=== PATIENT | female | born 1940 | race Caucasian/White ===

== ENCOUNTER 2020-02-14 09:58 | Inpatient (IN) | payer MEDICARE, MEDICAID, SELFPAY ==
[2020-02-14] VITALS (26 sets, daily range): BP systolic 86–147; BP diastolic 52–70; PULSE 62–101; RESP 12–22; TEMP 33.9–37.2; O2SAT 92–100; BMI 31.4
--- NOTE | ~2020-02-14 | XR_ITS ---
XR chest 1V portable DATE: 02/14/2020 13:55 INDICATION: Shortness of breath. Transient alteration of level of awareness TECHNIQUE: Portable AP chest on 02/14/2020 at 1352 hours COMPARISON: 01/24/2017 portable AP chest at 1530 hours FINDINGS: Heart size is borderline. There is mild atelectasis in the lower lung zones, primarily on t he right. No consolidation, pleural effusion, pulmonary vascular congestion or pneumothorax is eviden t. There is scoliosis and degenerative change of the thoracic spine. There is diffuse osteopenia. IMPRESSION: Mild atelectasis at the lung bases, right greater than left Reviewed, dictated and finalized at location B.
--- NOTE | ~2020-02-14 | US_ITS ---
EXAMINATION: US venous doppler [facility] DATE: 02/15/2020 10:36 INDICATION: Hypoxia. Elevated d-dimer. TECHNIQUE: Grayscale ultrasound images without and with compression and Doppler ultrasound images of the bilateral lower extremity veins were obtained. COMPARISON: None. FINDINGS: The visualized portions of right common femoral vein, profunda (deep) femoral vein, femoral vein, pop liteal vein, posterior tibial veins, peroneal veins, gastrocnemius vein and greater saphenous vein ou tflow are patent. The visualized portions of left common femoral vein, profunda femoral vein, femoral vein, popliteal v ein, posterior tibial veins, peroneal veins, gastrocnemius vein and greater saphenous vein outflow ar e patent. IMPRESSION: 1. No deep venous thrombosis in either lower limb. Reviewed, dictated and finalized at location A.
--- NOTE | ~2020-02-14 | MR_ITS ---
EXAMINATION: MR brain/brain stem wo con EXAM DATE: 02/15/2020 12:48 INDICATION: left-sided hemiparesis. Altered mental status. TECHNIQUE: Magnetic resonance imaging (MRI) of the brain/brain stem obtained without contrast. Sagitt al T1, axial diffusion, gradient echo (T2*), T1, T2, FLAIR sequences obtained. There is no prior st udy for comparison. FINDINGS: There are no areas of restricted diffusion to suggest acute infarction. There is no acute hemorrhage seen on the T2*, a hemosiderin sensitive sequence. 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 No intraparenchymal brain mass lesion. There are no extra-axial collections. Pop w voids are seen in the cerebral arteries on the T2-weighted sequences consistent with their expected patency. The orbits are unremarkable. Soft tissue is unremarkable. There is mild ethmoid mucoperi osteal thickening. IMPRESSION: 1. No acute intracranial findings. 2. 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 Reviewed, dictated and finalized at location A.
--- NOTE | ~2020-02-14 | CT_ITS ---
EXAMINATION: CTA chest PE protocol DATE: 02/15/2020 12:54 INDICATION: Hypoxia. Elevated d-dimer. TECHNIQUE: Computed tomography (CT) pulmonary angiogram of the chest was performed with 100 mL Omnipa que-350 intravenous contrast. Additional 3D reconstructions utilizing coronal maximum intensity proje ction (MIP) were performed. Automated exposure control and iterative reconstruction technique were em ployed. The dose-length product was 500.16 mGy-cm. COMPARISON: None FINDINGS: Good contrast opacification of the pulmonary arteries. There is moderate streak artifact from dense c ontrast in the superior vena cava and right atrium. There is scattered respiratory motion artifact, m ild in the mid lung zones, moderate at the upper lung zones and severe at the lung bases. This mildly decreases sensitivity in the smaller subsegmental pulmonary arteries in the upper lung zones and jesus alberto ders evaluation in the basilar segmental and subsegmental pulmonary arteries essentially nondiagnosti c. No definite pulmonary embolism identified. There is consolidation in the bilateral lower lobes with corresponding volume loss as evidenced by br onchovascular crowding which favors atelectasis over pneumonia. Additional discoid atelectasis at the lingula. Small left and trace right pleural effusions. No pulmonary edema or pneumothorax. Cardiomeg haven. No evident leftward bowing of the ventricular septum to suggest right heart strain. No pericardi al effusion. Enlargement of the central pulmonary arteries consistent with pulmonary arterial hyperte nsion. Thoracic aorta is normal in caliber with no dissection. No pathologically enlarged thoracic ly mphadenopathy. Multiple calcified gallstones within the visualized portion of the decompressed gallbl adder. Dextrocurvature likely at the cephalad aspect of a nonvisualized lumbar levoscoliosis. Moderat e spondylosis from the cervical through the upper lumbar spine. IMPRESSION: 1. No definite pulmonary embolism. Sensitivity decreased in the upper lung zones and essentially nond iagnostic in the basilar segmental and subsegmental pulmonary arteries due primarily to respiratory m otion. 2. Consolidation in the bilateral lower lobes with corresponding volume loss consistent with atelecta sis although difficult to exclude superimposed pneumonia. 3. Cardiomegaly. 4. Cholelithiasis. Reviewed, dictated and finalized at location A. IMPRESSION: 1. No definite pulmonary embolism. Sensitivity decreased in the upper lung zone s and essentially nondiagnostic in the basilar segmental and subsegmental pulmo nary arteries due primarily to respiratory motion. 2. Consolidation in the bilateral lower lobes with corresponding volume loss co nsistent with atelectasis although difficult to exclude superimposed pneumonia. 3. Cardiomegaly. 4. Cholelithiasis.
--- NOTE | ~2020-02-14 | CT_ITS ---
EXAMINATION: CTA BRAIN/CAROTID DATE: 02/14/2020 10:41 INDICATION: Altered mental status with increasing lethargy TECHNIQUE: Computed tomographic angiography (CTA) of the head and neck was performed with 100 mL Omni paque-350 intravenous contrast. Multiplanar reconstructions and maximum intensity projection 3D-recon structions of the carotid arteries and of the intracranial arteries were created by the technologist on a separate workstation. Precontrast CT of the head was also obtained. Automated exposure control and iterative reconstruction technique were employed.The dose-length product was 1385.70 mGy-cm. COMPARISON: None. FINDINGS: Carotid arteries: There is 0% stenosis of the right carotid bulb relative to normal distal artery lumen diameter (NASCE T criteria). There is 0% stenosis of the left carotid bulb relative to normal distal artery lumen syeda meter. Cervical soft tissues are unremarkable. Moderate cervical spondylosis. Respiratory motion with subsegmental atelectasis likely related to expiratory phase of imaging and the visualized upper lung s. Head CT: No acute intracranial hemorrhage, acute infarction or abnormal extra axial fluid collection. There is mild scattered white matter hypoattenuation consistent with chronic small vessel ischemic disease. S ymmetric prominence of the sulci consistent with mild age-appropriate diffuse cerebral volume loss. V entricles are normal and symmetric. No mass/mass effect. The orbits, paranasal sinuses and mastoid ai r cells are normal. Hyperostosis frontalis. Intracranial arteries There is no hemodynamically significant stenosis in the vertebral, basilar and internal carotid arter ies. Vertebral arteries are codominant. There are no aneurysms identified. The left A1 and right P1 s egments are patent. The right anterior cerebral artery is supplied by the left internal carotid arter y via a patent anterior communicating artery. The left posterior cerebral arteries is also supplied b y the left internal carotid artery via the left posterior communicating artery. Cerebral arterial arb orization appears symmetric. IMPRESSION: 1. No acute intracranial process. 2. Age-related changes including mild diffuse volume loss and mild scattered white matter hypoattenua tion consistent with chronic small vessel ischemic disease. 3. Normal variant anatomy of the [place] as detailed above. Otherwise normal cerebral angiog antelmo. 4. 0% stenosis of the right carotid bulbs relative to normal distal artery lumen diameter (NASCET cr iteria). Reviewed, dictated and finalized at location A. IMPRESSION: 1. No acute intracranial process. 2. Age-related changes including mild diffuse volume loss and mild scattered wh ite matter hypoattenuation consistent with chronic small vessel ischemic diseas e. 3. Normal variant anatomy of the [place] as detailed above. Otherwise normal cerebral angiogram. 4. 0% stenosis of the right carotid bulbs relative to normal distal artery lum en diameter (NASCET criteria).
--- NOTE | 2020-02-14 10:11 | ECG_ITS ---
Measurements Intervals [place] Rate: 67 P: 43 DE: 179 QRS: -7 QRSD: 113 T: 48 QT: 458 QTc: 485 Interpretive Statements SINUS RHYTHM LEFT VENTRICULAR HYPERTROPHY AND ST-T CHANGE MINIMAL Q WAVES- LATERAL LEADS BORDERLINE T WAVE ABNORMALITY- ANTERIOR LEADS BASELINE ARTIFACT- I, II, III, AVR, AVL BORDERLINE ECG Electronically Signed On 02-14-2020 10:21:14 CDT by Romario Shahid D.O.
--- NOTE | 2020-02-14 10:12 | ED.AMS ---
HPI - Altered Mental Status General Chief Complaint: Altered Mental Status Stated Complaint: LETHARGY Time Seen by Provider: 02/14/20 10:09 Source: other (Patient's family preservation caseworker) Mode of arrival: EMS Limitations: altered mental status History of Present Illness HPI narrative: A 79 y/o female presents to the ED, via EMS, with c/o AMS. Per patient's family preservation caseworker, the patient is not normally as lethargic and altered as she is today. She states that the patient appeared normal yesterday. At 0900 this morning the patient came out of the bathroom and stumbled. The family preservation caseworker adds that the patient did not fall, and sat in her chair after the stumble. The patient then quickly became more disoriented and stopped responding to staff questions. A complete HPI is limited due to the patient's AMS. MD complaint: altered mental status Onset (ago): hour(s) (1) Time: 09:00 Timing confirmed by: other (efficiency manager) Consistency of symptoms: unknown Associated symptoms: other (Lethargic) Related Data Home Medications Medication Instructions Recorded Confirmed Adult Low Dose Aspirin 81 mg PO DAILY 02/14/20 02/14/20 buspirone 10 mg PO BID 02/14/20 02/14/20 cetirizine 10 mg PO DAILY 02/14/20 02/14/20 divalproex 125 mg PO BID 02/14/20 02/14/20 duloxetine 60 mg PO DAILY 02/14/20 02/14/20 irbesartan 150 mg PO DAILY 02/14/20 02/14/20 levothyroxine 112 mcg PO DIRECTED 02/14/20 02/14/20 memantine 5 mg PO BID 02/14/20 02/14/20 potassium chloride 20 meq PO BID 02/14/20 02/14/20 rivastigmine [Exelon] 9.5 mg TRANSDERMAL DAILY 02/14/20 02/14/20 trazodone 100 mg PO HS 02/14/20 02/14/20 Allergies Allergy/AdvReac Type Severity Reaction Status Date / Time No Known Allergies Allergy Unverified 12/23/17 14:57 Review of Systems Review of Systems: Narrative: A complete ROS is limited due to the patient's AMS. All systems reviewed & are unremarkable except as noted in HPI and below Constitutional: Constitutional: Reports other (Lethargic) Neurologic: Reports other (AMS) [facility] Past Medical History Medical History (Updated 02/14/20 @ 19:08 by Michelle Hardwick MD) Breast cancer Dementia HTN (hypertension) Hypothyroid Post-menopausal Schizophrenia Seizure disorder Surgical History Surgical History History of mastectomy Right Social History Social History (Updated 02/14/20 @ 13:48 by Roshan Whitt MD) Social History: Resides in a shelter. [facility] a [facility] and full code status. Smoking status: Never smoker Alcohol intake: never Substance use: never Occupation/Education: retired Additional occupation/education comments: Disabled due to psychological condition Exam Const: General: no acute distress and well developed Orientation/consciousness: lethargic HENMT: Head: normocephalic Ears: external ears normal General nose exam: Normal external nose present Eyes: General: appearance normal, both eyes and all related structures Conjunctivae: conjunctivae normal Pupils: Other pupil findings (Constricted) Neck: Neck: normal visual inspection and full ROM Chest: Chest palpation & inspection: normal inspection of the chest and no tenderness Resp: Effort & Inspection: normal respiratory effort Auscultation: clear to auscultation bilaterally Cardio: Rate: regular rate Rhythm: regular rhythm GI: GI Palp: No abdominal tenderness and Yes Soft to palpation Skin: General skin exam: normal color and turgor normal Neuro: General: other (Lethargic, does not answer questions, does not follow commands) Other: lethargic, does not answer questions or follow commands, motor exam is limited to inability to follow commands Extrem: General: normal to inspection, full ROM and no pedal edema Psych: Appearance: grossly normal Mental Status: mental status grossly abnormal Affect: normal affect Course Consultations Consultation #1: Discussed case with hannah
[2020-02-14 11:01] LABS: Basophils Percent Auto 0.4 % (0.2-1.2); Eosinophils Absolute Auto 0.2 K/mm3 (0-0.3); Eosinophils Percent Auto 2.1 % (0-4.4); Hematocrit 30.8 % (37.0-47.0); Hemoglobin 9.8 g/dL (12.0-15.0); Immature Granulocyte Absolute 0.05 K/mm3 (0.00-0.031); Immature Granulocyte Percent A 0.6 % (0-0.5); Lymphocytes Absolute Auto 1.47 K/mm3 (0.9-3.2); Lymphocytes Percent Auto 18.9 % (18.3-44.2); Mean Corpuscular HGB Conc 31.8 g/dl (32-36); Mean Corpuscular Hemoglobin 31.3 pg (26-34); Mean Corpuscular Volume 98.4 fl (80-100); Mean Platelet Volume 10.1 fl (7.4-10.4); Monocytes Absolute Auto 1.1 K/mm3 (0.1-0.6); Monocytes Percent Auto 14.2 % (2.6-8.5); Neutrophils Percent Auto 63.8 % (45.5-73.1); Platelet Count Result 188 k/mm3 (150-375); Red Blood Count 3.13 M/mm3 (4.2-5.4); Red Cell Distribution Width 13.8 % (11.5-14.5); White Blood Count 7.8 K/mm3 (4.5-10.0)
[2020-02-14 11:14] LABS: Alanine Aminotransferase 9 U/L (4-35); Albumin Level 2.9 g/dL (3.5-5.1); Alkaline Phosphatase 65 U/L (38-126); Aspartate Amino Transferase 16 U/L (14-36); Bilirubin,Total 0.2 mg/dL (0.2-1.3); Blood Urea Nitrogen 19 mg/dL (7-17); Calcium 7.9 mg/dL (8.4-10.2); Carbon Dioxide 24 mmol/L (22-30); Chloride 108 mmol/L (98-107); Estimated Glomerular Filt Rate > 60; Glucose 105 mg/dL (65-105); Potassium 3.3 mmol/L (3.4-5.0); Sodium 136 mmol/L (137-145)
[2020-02-14 11:41] LABS: Valproic Acid 42.5 ug/mL (50-120)
[2020-02-14 12:19] LABS: Add Urine Microscopic? NO; Appearance Urine Clear (Clear); Bilirubin Urine Negative (Negative); Blood Urine Negative (Negative); Color Urine Yellow (Yellow); Glucose Urine UA Negative (Negative); Ketones Urine Negative (Negative); Leukocyte Esterase Ur Negative LEU/UL (Negative); Nitrate Urine Negative (Negative); Protein Urine Negative (Negative); Specific Grav Ur 1.026 (1.001-1.035); Urobilinogen Urine Negative mg/dL (<2.0)
[2020-02-14] MEDS: POTASSIUM CHLORIDE 20 MEQ TABLET PO (12:21)
[2020-02-14] MEDS: SODIUM CHLORIDE 0.9% IV 1,000 ML 999 ML IV CONT (12:27)
[2020-02-14 12:34] LABS: Amphetamine Screen Urine Negative (Negative); Barbiturate Screen Urine Negative (Negative); Benzodiazepines Screen Urine Negative (Negative); Cannabinoid Screen Urine Negative (Negative); Cocaine Screen Urine Negative (Negative); Methadone Screen Urine Negative (Negative); Opiate Screen Urine Negative (Negative); Phencyclidine Screen Urine Negative (Negative)
[2020-02-14] MEDS: LACTATED RINGERS 2,200 ML/1,000 ML BAG 999 ML IV CONT ×2 (13:00→14:28)
[2020-02-14 13:22] LABS: Alveolar/Arterial O2 Gradient 74.7 mmHg; Base Excess ABG -4.7 mEq/l (+/-2.0); Fractional Inspired Oxygen 28 %; HCO3 ABG 21.5 mEq/l (22.0-26.0); Oxygen Content ABG 14.4 %vol (16.0-22.0); Oxygen Saturation ABG 93.3 % (95.0-100.0); Oxyhemoglobin 91.8 % THb (90.0-100.0); PCO2 ABG 43.9 mmHg (35.0-45.0); PO2 ABG 73.1 mmHg (80.0-100.0); PO2 FiO2 Ratio Arterial Blood 2.61 %; Total Hemoglobin 11.1 g/dL (12.0-18.0); pH ABG 7.307 (7.350-7.450)
[2020-02-14 13:24] LABS: Device NASAL CANNULA; Modified Allen's Test Pass; Site Drawn LEFT RADIAL
--- NOTE | 2020-02-14 13:39 | PM.IMHP ---
H&P: HPI History of Present Illness Chief complaint: altered mental status Narrative: Gaviota Blount is a 79 year old right-handed female resident of a alf who was in her usual state of health until this morning at about 99 3:00 p.m.. 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 She was walking and talking her usual voice which is usually a bit slurred. She has a history of schizophrenia and intellectual disability. Staff the home noticed that she was nonambulatory and lethargic. They summoned 911 and she was brought to the emergency department. One staff member is present in the emergency department room with the patient. She states the patient usually has slurred speech. She does not complain about anything. She is ambulatory and pleasant. She eats well. Staff has not noted any difference in her ambulation appetite elimination or interaction with others until this morning. She has had no recent changes in medication. She does have a history of seizure disorder but no seizure activity was noted this morning. Review of Systems Review of Systems: ROS unobtainable: unobtainable due to mental status PMFSH Past Medical History Medical History (Updated 02/14/20 @ 17:41 by Roshan Whitt MD) Breast cancer Dementia HTN (hypertension) Hypothyroid Post-menopausal Schizophrenia Seizure disorder Surgical History Surgical History History of mastectomy Right Social History Social History (Updated 02/14/20 @ 13:48 by Roshan Whitt MD) Social History: Resides in a alf. She is a grey of the [facility], [facility] and full code status. Smoking status: Never smoker Alcohol intake: never Substance use: never Occupation/Education: retired Additional occupation/education comments: Disabled due to psychological condition Meds Home Medications and Allergies Home Medications Medication Instructions Recorded Confirmed Type Adult Low Dose Aspirin 02/14/20 History buspirone mg 02/14/20 History cetirizine 02/14/20 History divalproex PO 02/14/20 History irbesartan mg 02/14/20 History levothyroxine 02/14/20 History memantine mg 02/14/20 History potassium chloride meq PO 02/14/20 History rivastigmine [Exelon] 02/14/20 History trazodone 02/14/20 History Allergies Allergy/AdvReac Type Severity Reaction Status Date / Time No Known Allergies Allergy Unverified 12/23/17 14:57 Vital Signs Vital Signs - 24 hr 02/14/20 09:55 02/14/20 09:59 02/14/20 10:59 Temperature 93.1 F L Pulse Rate 73 Respiratory Rate 16 14 Blood Pressure 86/56 L Pulse Oximetry 99 92 02/14/20 11:00 02/14/20 13:07 Temperature 93.1 F L Pulse Rate 62 Respiratory Rate 12 Blood Pressure 86/60 L Pulse Oximetry 95 Exam Narrative: Exam Narrative: HEENT: EOMI, Pupils pinpoint and sluggishly reactive but symmetric, sclerae nonicteric, pharyngeal mucosa pink and intact NECK: No JVD, adenopathy, or thyromegaly CHEST: Coarse breath sounds bilaterally with normal effort HEART: NL S1/S2, regular, no murmur ABDOMEN: BS+, distended but soft, nontender, no mass, no bruits EXTREMITIES: No cyanosis, edema, or clubbing, with intact dorsalis pedis bilaterally NEUROLOGIC: CN intact and symmetric to inspection. Speech is somewhat raspy and slurred. Deep tender reflexes are hypoactive throughout absent at the ankles. Negative Babinski's. MUSCULOSKELETAL: Tone seem slightly diminished on the left lower extremity versus the right. Left waterproof bag sewer slightly decreased versus right. Although she is able to support her left leg against gravity she has virtually no reaction to Babinski on the left foot and brisk with withdrawal on the right foot. PSYCH: Patient is drowsy but arouses easily. She is oriented to person only and is able to say her 1st name. H&P: Results Labs Labs: Short CBC 02/14/20 Range/Units 10:54 W
[2020-02-14 14:03] LABS: INR 1.1
[2020-02-14 14:04] LABS: Partial Thromboplastin Time 38.4 SECONDS (22.3-36.8)
[2020-02-14 14:05] LABS: Lactic Acid Reflex 1.1 mmol/L (0.7-2.1)
--- NOTE | 2020-02-14 14:08 | PC.NURSE ---
1100 Rectal Temperature 93.1 F EDP notified. Denied temperature daniels. Verbal order readback start Pt. on kamilah hugger. 1200 Temperature remained 93.0 F EDP notified kamilah hugger continued 1300 Temperature remained 93.1 F EDP notified, ordered warm fluids and temperature daniels via verbal order readback. 1400 Core temperature increased to 94.0 F
--- NOTE | 2020-02-14 14:38 | PC.NURSE ---
EDP notified about blood pressure being low. EDP wants to wait for LR bolus to finish and reevaluate.
[2020-02-14 19:00] LABS: Immature Reticulocyte Fraction 11.3 % (3.0-15.9); Reticulocyte Hemoglobin Conten 35.1 pg (28.2-35.7); Reticulocyte Percent 1.84 % (0.7-4.3); Reticulocytes Absolute 0.07 B/L (32.2-175.7)
[2020-02-14 19:11] LABS: D Dimer 2.04 ug/mL (<0.48)
[2020-02-14 19:12] LABS: Creatine Kinase 39 U/L (30-135); Magnesium 1.8 mg/dL (1.6-2.3); Phosphorus 3.5 mg/dL (2.5-4.5)
[2020-02-14] MEDS: POTASSIUM CHLORIDE 20 MEQ TABLET 40 MEQ PO (19:25)
[2020-02-14 19:44] LABS: Iron 52 ug/dL (37-170)
[2020-02-14 19:54] LABS: Percent Iron Saturation 16 % (20-50)
--- NOTE | 2020-02-14 20:14 | PC.NURSE ---
This patient, Gaviota Blount, was admitted to IMU Room 205-02. Patient/family oriented to hospital policies and general routines including ID bracelet, bed and alarms, visiting hours, pain management, procedures, bathroom and other care routines, personal items, smoking policy, room service/diet, and visiting hours. Valuables list has been completed. Information on how to activate the Rapid Response Team has been discussed. Patient/Family are encouraged to report perceived risks to care and to ask questions if they do not understand what they are told or what they should do.
[2020-02-14 20:30] LABS: Folic Acid > 20.0 ng/mL (2.76->20)
[2020-02-14 20:42] LABS: Thyroid Stimulating Hormone Reflex 0.827 uIU/mL (0.465-4.68)
[2020-02-15] VITALS (13 sets, daily range): BP systolic 106–141; BP diastolic 49–80; PULSE 71–99; RESP 16–22; TEMP 36.3–37.3; O2SAT 93–100
[2020-02-15 04:51] LABS: Basophils Percent Auto 0.3 % (0.2-1.2); Eosinophils Absolute Auto 0.2 K/mm3 (0-0.3); Hematocrit 33.7 % (37.0-47.0); Hemoglobin 10.8 g/dL (12.0-15.0); Immature Granulocyte Absolute 0.06 K/mm3 (0.00-0.031); Immature Granulocyte Percent A 0.5 % (0-0.5); Lymphocytes Absolute Auto 1.68 K/mm3 (0.9-3.2); Mean Corpuscular Hemoglobin 30.9 pg (26-34); Mean Corpuscular Volume 96.6 fl (80-100); Mean Platelet Volume 10.7 fl (7.4-10.4); Monocytes Absolute Auto 1.3 K/mm3 (0.1-0.6); Monocytes Percent Auto 10.5 % (2.6-8.5); Neutrophils Absolute Auto 8.7 K/mm3 (1.3-6.7); Neutrophils Percent Auto 72.7 % (45.5-73.1); Platelet Count Result 219 k/mm3 (150-375); Red Blood Count 3.49 M/mm3 (4.2-5.4)
[2020-02-15 05:02] LABS: Blood Urea Nitrogen 14 mg/dL (7-17); Calcium 8.2 mg/dL (8.4-10.2); Carbon Dioxide 26 mmol/L (22-30); Chloride 112 mmol/L (98-107); Estimated CRCL calculation 68 ml/min; Estimated Glomerular Filt Rate > 60; Glucose 104 mg/dL (65-105); Sodium 140 mmol/L (137-145)
[2020-02-15] MEDS: LORATADINE 10 MG TABLET PO (09:14)
[2020-02-15] MEDS: CALCIUM CARBONATE (OSCAL) 500 MG TABLET PO (09:14)
[2020-02-15] MEDS: IRBESARTAN 150 MG TABLET PO (09:14)
[2020-02-15] MEDS: ASPIRIN 81 MG ENTERIC TABLET PO (09:14)
[2020-02-15] MEDS: busPIRone HCL 10 MG TABLET PO ×2 (09:14→20:58)
[2020-02-15] MEDS: DIVALPROEX SODIUM SPRINKLE 125 MG CAP.DR PO ×2 (09:14→18:54)
[2020-02-15] MEDS: MEMANTINE 5 MG TABLET PO ×2 (09:15→20:58)
[2020-02-15] MEDS: RIVASTIGMINE TARTRATE 9.5 MG PATCH 1 PATCH TRANSDERM (09:15)
[2020-02-15] MEDS: DULOXETINE 60 MG CAPSULE.DR PO (09:15)
[2020-02-15] MEDS: POTASSIUM CHLORIDE 20 MEQ TABLET.ER PO ×2 (09:15→16:59)
--- NOTE | 2020-02-15 09:21 | PCSTNOTE ---
Please refer to the Bedside Swallow Evaluation in the EMR.
--- NOTE | 2020-02-15 09:36 | P.PNIM_ITS ---
Progress Note: A&P Assessment and Plan (1) Acute respiratory failure with hypoxemia: Code(s): J96.01 - Acute respiratory failure with hypoxia Status: Acute Assessment and Plan: * No prior hx of pulmonary issues * Elevated D-dimer and sudden change in status are worrisome for PE * Venous doppler pending * CTA chest pending (2) Hypothermia: Qualifiers: Encounter type: initial encounter Qualified Code(s): T68.XXXA - Hypothermia, initial encounter Code(s): T68.XXXA - Hypothermia, initial encounter Status: Acute Assessment and Plan: * ddx stroke (thalamic), sepsis (but no obvious source, unless viral as she does have a monocytosis); sudden onset is against metabolic etiology (hypothyroid or adrenal insufficiency); hx is against exposure * MRI brain pending * TSHr, cortisol levels WNL * Blood C/s pending (cxr and urine negative; abdomen benign on exam) * Resolved with warming blanket * Monitor (3) Left-sided weakness: Code(s): R53.1 - Weakness Status: Acute Assessment and Plan: * ddx: stroke, post ictal (only low pH suggests seizure), metabolic encephalopathy (possibly due to hypothermia) (4) Hypotension: Qualifiers: Hypotension type: unspecified hypotension type Qualified Code(s): I95.9 - Hypotension, unspecified Code(s): I95.9 - Hypotension, unspecified Status: Acute Assessment and Plan: * Baseline BP is low 100's (per [facility] staff) * Initial BP may have been lower due to hypothermia * IVF (bolus 2 L in ED and bp to 130's systolic) * Monitor (5) Seizure disorder: Code(s): G40.909 - Epilepsy, unspecified, not intractable, without status epilepticus Status: Acute Assessment and Plan: * Continue home regimen (6) Schizophrenia: Qualifiers: Schizophrenia type: undifferentiated schizophrenia Qualified Code(s): F20.3 - Undifferentiated schizophrenia Code(s): F20.9 - Schizophrenia, unspecified Status: Acute Assessment and Plan: * Conitnue home regimen (7) Hypothyroid: Qualifiers: Hypothyroidism type: acquired Qualified Code(s): E03.9 - Hypothyroidism, unspecified Code(s): E03.9 - Hypothyroidism, unspecified Status: Acute Assessment and Plan: * Continue home regimen (8) Dementia: Qualifiers: Dementia type: unspecified type Dementia behavioral disturbance: without behavioral disturbance Qualified Code(s): F03.90 - Unspecified dementia without behavioral disturbance Code(s): F03.90 - Unspecified dementia without behavioral disturbance Status: Acute Assessment and Plan: * Continue home regimen (9) Anemia: Qualifiers: Anemia type: unspecified type Qualified Code(s): D64.9 - Anemia, unspecified Code(s): D64.9 - Anemia, unspecified Status: Acute Assessment and Plan: * Normocytic with unclear etiology * Lab evaluation and occult blood (10) Hypokalemia: Code(s): E87.6 - Hypokalemia Status: Acute Assessment and Plan: * Likely due to poor intake * Replenish with PO supplementation (11) Malnutrition: Qualifiers: Malnutrition type: protein-calorie malnutrition Protein-calorie malnutrition severity: mild Qualified Code(s): E44.1 - Mild protein-calorie malnutrition Code(s): E46 - Unspecified protein-calorie malnutrition Status: Acute Assessment and Plan: * Manifested
--- NOTE | 2020-02-15 09:36 | PM.IMPN ---
Progress Note: A&P Assessment and Plan (1) Acute respiratory failure with hypoxemia: Code(s): J96.01 - Acute respiratory failure with hypoxia Status: Acute Assessment and Plan: No prior hx of pulmonary issues Elevated D-dimer and sudden change in status are worrisome for PE Venous doppler pending CTA chest pending (2) Hypothermia: Qualifiers: Encounter type: initial encounter Qualified Code(s): T68.XXXA - Hypothermia, initial encounter Code(s): T68.XXXA - Hypothermia, initial encounter Status: Acute Assessment and Plan: ddx stroke (thalamic), sepsis (but no obvious source, unless viral as she does have a monocytosis); sudden onset is against metabolic etiology (hypothyroid or adrenal insufficiency); hx is against exposure MRI brain pending TSHr, cortisol levels WNL Blood C/s pending (cxr and urine negative; abdomen benign on exam) Resolved with warming blanket Monitor (3) Left-sided weakness: Code(s): R53.1 - Weakness Status: Acute Assessment and Plan: ddx: stroke, post ictal (only low pH suggests seizure), metabolic encephalopathy (possibly due to hypothermia) (4) Hypotension: Qualifiers: Hypotension type: unspecified hypotension type Qualified Code(s): I95.9 - Hypotension, unspecified Code(s): I95.9 - Hypotension, unspecified Status: Acute Assessment and Plan: Baseline BP is low 100's (per long-term staff) Initial BP may have been lower due to hypothermia IVF (bolus 2 L in ED and bp to 130's systolic) Monitor (5) Seizure disorder: Code(s): G40.909 - Epilepsy, unspecified, not intractable, without status epilepticus Status: Acute Assessment and Plan: Continue home regimen (6) Schizophrenia: Qualifiers: Schizophrenia type: undifferentiated schizophrenia Qualified Code(s): F20.3 - Undifferentiated schizophrenia Code(s): F20.9 - Schizophrenia, unspecified Status: Acute Assessment and Plan: Conitnue home regimen (7) Hypothyroid: Qualifiers: Hypothyroidism type: acquired Qualified Code(s): E03.9 - Hypothyroidism, unspecified Code(s): E03.9 - Hypothyroidism, unspecified Status: Acute Assessment and Plan: Continue home regimen (8) Dementia: Qualifiers: Dementia type: unspecified type Dementia behavioral disturbance: without behavioral disturbance Qualified Code(s): F03.90 - Unspecified dementia without behavioral disturbance Code(s): F03.90 - Unspecified dementia without behavioral disturbance Status: Acute Assessment and Plan: Continue home regimen (9) Anemia: Qualifiers: Anemia type: unspecified type Qualified Code(s): D64.9 - Anemia, unspecified Code(s): D64.9 - Anemia, unspecified Status: Acute Assessment and Plan: Normocytic with unclear etiology Lab evaluation and occult blood (10) Hypokalemia: Code(s): E87.6 - Hypokalemia Status: Acute Assessment and Plan: Likely due to poor intake Replenish with PO supplementation (11) Malnutrition: Qualifiers: Malnutrition type: protein-calorie malnutrition Protein-calorie malnutrition severity: mild Qualified Code(s): E44.1 - Mild protein-calorie malnutrition Code(s): E46 - Unspecified protein-calorie malnutrition Status: Acute Assessment and Plan: Manifested by albumin 2.9, total protein 6.0 Subjective Date/time seen: 02/15/20 09:36 Interval history: F/u hypothermia, AMS for which she was admitted 02/13. Feeling better today. Tolerating diet. Denied pain. Review of Systems Review of Systems: ROS unobtainable: unobtainable due to mental status Exam Narrative: Exam Narrative: HEENT: EOMI, Pupils ERRL, EOMI, sclerae nonicteric, pharyngeal mucosa pink and intact NECK: No JVD CHEST: CTA, NL effort HEART: NL S1/S
--- NOTE | 2020-02-15 18:49 | PC.NURSE ---
Rec'd from IMU per bed at 1845.
--- NOTE | 2020-02-15 18:51 | PC.NURSE ---
This patient, Gaviota Blount, was transferred to [ [id number]] on 02/15/20 at 1840. Personal belongings sent with patient. Belongings list checked and signed with receiving [ ]. Report given to [ Alicia ]. Appropriate documentation sent with patient.
[2020-02-15] MEDS: TRAZODONE HCL 50 MG TABLET 100 MG PO (20:58)
[2020-02-16] MEDS: LEVOTHYROXINE SODIUM 112 MCG TABLET PO (05:42)
[2020-02-16 06:00] VITALS: BP 125/52; PULSE 76; RESP 16; TEMP 37; O2SAT 94
[2020-02-16 06:39] LABS: Basophils Absolute Auto 0.1 K/mm3 (0.0-0.1); Basophils Percent Auto 0.5 % (0.2-1.2); Eosinophils Absolute Auto 0.5 K/mm3 (0-0.3); Eosinophils Percent Auto 4.9 % (0-4.4); Hematocrit 33.3 % (37.0-47.0); Hemoglobin 10.7 g/dL (12.0-15.0); Immature Granulocyte Absolute 0.06 K/mm3 (0.00-0.031); Immature Granulocyte Percent A 0.6 % (0-0.5); Lymphocytes Absolute Auto 2.63 K/mm3 (0.9-3.2); Lymphocytes Percent Auto 28.3 % (18.3-44.2); Mean Corpuscular HGB Conc 32.1 g/dl (32-36); Mean Corpuscular Volume 96.5 fl (80-100); Mean Platelet Volume 10.5 fl (7.4-10.4); Monocytes Absolute Auto 1.2 K/mm3 (0.1-0.6); Monocytes Percent Auto 12.5 % (2.6-8.5); Neutrophils Absolute Auto 4.9 K/mm3 (1.3-6.7); Neutrophils Percent Auto 53.2 % (45.5-73.1); Platelet Count Result 217 k/mm3 (150-375); Red Blood Count 3.45 M/mm3 (4.2-5.4); White Blood Count 9.3 K/mm3 (4.5-10.0)
[2020-02-16 07:05] LABS: Blood Urea Nitrogen 17 mg/dL (7-17); Calcium 8.4 mg/dL (8.4-10.2); Carbon Dioxide 29 mmol/L (22-30); Chloride 110 mmol/L (98-107); Estimated CRCL calculation 60 ml/min; Estimated Glomerular Filt Rate > 60; Glucose 95 mg/dL (65-105); Sodium 139 mmol/L (137-145)
[2020-02-16 07:34] LABS: Potassium 4.1 mmol/L (3.4-5.0)
[2020-02-16] MEDS: DULOXETINE 60 MG CAPSULE.DR PO (08:22)
[2020-02-16] MEDS: LORATADINE 10 MG TABLET PO (08:22)
[2020-02-16] MEDS: IRBESARTAN 150 MG TABLET PO (08:22)
[2020-02-16] MEDS: MEMANTINE 5 MG TABLET PO (08:22)
[2020-02-16] MEDS: ASPIRIN 81 MG ENTERIC TABLET PO (08:22)
[2020-02-16] MEDS: RIVASTIGMINE TARTRATE 9.5 MG PATCH 1 PATCH TRANSDERM (08:22)
[2020-02-16] MEDS: POTASSIUM CHLORIDE 20 MEQ TABLET.ER PO (08:22)
[2020-02-16] MEDS: DIVALPROEX SODIUM SPRINKLE 125 MG CAP.DR PO (08:22)
[2020-02-16] MEDS: CALCIUM CARBONATE (OSCAL) 500 MG TABLET PO (08:22)
[2020-02-16] MEDS: busPIRone HCL 10 MG TABLET PO (08:22)
--- NOTE | 2020-02-16 10:54 | P.DS_ITS ---
DS: Diagnosis Admitting Diagnosis Admitting Diagnosis: Hypothermia, initial encounter Discharge Diagnosis (1) Hypothermia: Qualifiers: Encounter type: initial encounter Qualified Code(s): T68.XXXA - Hypothermia, initial encounter Code(s): T68.XXXA - Hypothermia, initial encounter Status: Acute Assessment and Plan: * Initial ddx stroke (thalamic), sepsis (but no obvious source, unless viral as she does have a monocytosis); sudden onset is against metabolic etiology (hypothyroid or adrenal insufficiency); hx is against exposure * MRI brain negative for stroke, bleed, neoplasm * TSHr, cortisol levels WNL * Blood C/s negative (cxr and urine negative; abdomen benign on exam) * Resolved with warming blanket * At baseline * Return to senior care (2) Acute respiratory failure with hypoxemia: Code(s): J96.01 - Acute respiratory failure with hypoxia Status: Acute Assessment and Plan: * No prior hx of pulmonary issues * Elevated D-dimer and sudden change in status were worrisome for PE * Venous doppler negative * CTA chest negative (3) Left-sided weakness: Code(s): R53.1 - Weakness Status: Acute Assessment and Plan: * Initial ddx: stroke, post ictal (only low pH suggests seizure), metabolic encephalopathy (possibly due to hypothermia) * Likely metabolic vs TIA * [facility] Hypotension: Qualifiers: Hypotension type: unspecified hypotension type Qualified Code(s): I95.9 - Hypotension, unspecified Code(s): I95.9 - Hypotension, unspecified Status: Acute Assessment and Plan: * Baseline BP is low 100's (per senior care staff) * Initial BP may have been lower due to hypothermia * IVF (bolus 2 L in ED and bp to 130's systolic) * Back to baseline (5) Seizure disorder: Code(s): G40.909 - Epilepsy, unspecified, not intractable, without status epilepticus Status: Acute Assessment and Plan: * Continue home regimen (6) Schizophrenia: Qualifiers: Schizophrenia type: undifferentiated schizophrenia Qualified Code(s): F20.3 - Undifferentiated schizophrenia Code(s): F20.9 - Schizophrenia, unspecified Status: Acute Assessment and Plan: * Conitnue home regimen (7) Hypothyroid: Qualifiers: Hypothyroidism type: acquired Qualified Code(s): E03.9 - Hypothyroidism, unspecified Code(s): E03.9 - Hypothyroidism, unspecified Status: Acute Assessment and Plan: * Continue home regimen (8) Dementia: Qualifiers: Dementia behavioral disturbance: without behavioral disturbance Dementia type: unspecified type Qualified Code(s): F03.90 - Unspecified dementia without behavioral disturbance Code(s): F03.90 - Unspecified dementia without behavioral disturbance Status: Acute Assessment and Plan: * Continue home regimen (9) Anemia: Qualifiers: Anemia type: unspecified type Qualified Code(s): D64.9 - Anemia, unspecified Code(s): D64.9 - Anemia, unspecified Status: Acute Assessment and Plan: * Normocytic with unclear etiology * Lab evaluation negative for iron, b12, folate deficiencies, or hemolysis (10) Hypokalemia: Code(s): E87.6 - Hypokalemia Status: Acute Assessment and Plan: * Likely due to poor intake * Replenished with PO supplementation (11) Malnutrition: Qualifiers: Malnutrition type: protein-calorie malnu
--- NOTE | 2020-02-16 10:54 | PM.DS ---
DS: Diagnosis Admitting Diagnosis Admitting Diagnosis: Hypothermia, initial encounter Discharge Diagnosis (1) Hypothermia: Qualifiers: Encounter type: initial encounter Qualified Code(s): T68.XXXA - Hypothermia, initial encounter Code(s): T68.XXXA - Hypothermia, initial encounter Status: Acute Assessment and Plan: Initial ddx stroke (thalamic), sepsis (but no obvious source, unless viral as she does have a monocytosis); sudden onset is against metabolic etiology (hypothyroid or adrenal insufficiency); hx is against exposure MRI brain negative for stroke, bleed, neoplasm TSHr, cortisol levels WNL Blood C/s negative (cxr and urine negative; abdomen benign on exam) Resolved with warming blanket At baseline [facility] (2) Acute respiratory failure with hypoxemia: Code(s): J96.01 - Acute respiratory failure with hypoxia Status: Acute Assessment and Plan: No prior hx of pulmonary issues Elevated D-dimer and sudden change in status were worrisome for PE Venous doppler negative CTA chest negative (3) Left-sided weakness: Code(s): R53.1 - Weakness Status: Acute Assessment and Plan: Initial ddx: stroke, post ictal (only low pH suggests seizure), metabolic encephalopathy (possibly due to hypothermia) Likely metabolic vs TIA Back to [facility] (4) Hypotension: Qualifiers: Hypotension type: unspecified hypotension type Qualified Code(s): I95.9 - Hypotension, unspecified Code(s): I95.9 - Hypotension, unspecified Status: Acute Assessment and Plan: Baseline BP is low 100's (per [facility] staff) Initial BP may have been lower due to hypothermia IVF (bolus 2 L in ED and bp to 130's systolic) Back to baseline (5) Seizure disorder: Code(s): G40.909 - Epilepsy, unspecified, not intractable, without status epilepticus Status: Acute Assessment and Plan: Continue home regimen (6) Schizophrenia: Qualifiers: Schizophrenia type: undifferentiated schizophrenia Qualified Code(s): F20.3 - Undifferentiated schizophrenia Code(s): F20.9 - Schizophrenia, unspecified Status: Acute Assessment and Plan: Conitnue home regimen (7) Hypothyroid: Qualifiers: Hypothyroidism type: acquired Qualified Code(s): E03.9 - Hypothyroidism, unspecified Code(s): E03.9 - Hypothyroidism, unspecified Status: Acute Assessment and Plan: Continue home regimen (8) Dementia: Qualifiers: Dementia behavioral disturbance: without behavioral disturbance Dementia type: unspecified type Qualified Code(s): F03.90 - Unspecified dementia without behavioral disturbance Code(s): F03.90 - Unspecified dementia without behavioral disturbance Status: Acute Assessment and Plan: Continue home regimen (9) Anemia: Qualifiers: Anemia type: unspecified type Qualified Code(s): D64.9 - Anemia, unspecified Code(s): D64.9 - Anemia, unspecified Status: Acute Assessment and Plan: Normocytic with unclear etiology Lab evaluation negative for iron, b12, folate deficiencies, or hemolysis (10) Hypokalemia: Code(s): E87.6 - Hypokalemia Status: Acute Assessment and Plan: Likely due to poor intake Replenished with PO supplementation (11) Malnutrition: Qualifiers: Malnutrition type: protein-calorie malnutrition Protein-calorie malnutrition severity: mild Qualified Code(s): E44.1 - Mild protein-calorie malnutrition Code(s): E46 - Unspecified protein-calorie malnutrition Status: Acute Assessment and Plan: Manifested by albumin 2.9, total protein 6.0 DS: Summary Hospital Course Reason for hospitalization: confusion Hospital Course: Admitted with altered mental status, inability to ambulate. Temp 93.1 upon arrival in ED with BP 80s systolic. Mild le
== END 2020-02-16 13:00 | disposition home or self-care (01) | DRG 922 ==
LOC: ANHED 12:25 → ANH2MED 13:00 → ANHIMU 16:25 → ANH3MEDSUR 02-15 18:52
PROVIDERS: Admitting Provider Internal Medicine; Emergency Provider Emergency Medicine; PCP Family Medicine; Visit Provider Internal Medicine
DX: T68.XXXA Hypothermia, initial encounter (principal); J96.01 Acute respiratory failure with hypoxia; E46 Unspecified protein-calorie malnutrition; R41.82 Altered mental status, unspecified; I95.9 Hypotension, unspecified; F03.90 Unspecified dementia, unspecified severity, without behavioral disturbance, psychotic disturbance, mood disturbance, and anxiety; E03.9 Hypothyroidism, unspecified; G40.909 Epilepsy, unspecified, not intractable, without status epilepticus; F20.9 Schizophrenia, unspecified; F79 Unspecified intellectual disabilities; D64.9 Anemia, unspecified; E87.6 Hypokalemia; R53.1 Weakness; Z85.3 Personal history of malignant neoplasm of breast
CPT/HCPCS: 36415; 36600; 51701; 70496; 70498; 70551; 71045; 71275; 80048; 80053; 80164; 80307; 81003; 82533; 82550; 82607; 82746; 82805; 83540; 83550; 83605; 83735; 84100; 84443; 85025; 85046; 85380; 85610; 85730; 87040; 87081; 92610; 93005; 93970; 96360; 96361; 97110; 97116; 97161; 97165; 99285; A9270; J7030; J7120; Q9967

== ENCOUNTER 2020-06-24 16:13 | Outpatient (CLI) | payer MEDICARE, MEDICAID, SELFPAY ==
--- NOTE | ~2020-06-24 | MM_ITS ---
EXAMINATION: MM screening mammo unilat LT HISTORY: Screening mammogram TECHNIQUE: Craniocaudal and mediolateral oblique and rotated lateral craniocaudal views.... CAD amber sis was submitted and interpreted. COMPARISON: No prior mammogram is available for comparison at this institution. BREAST PARENCHYMAL COMPOSITION: There are scattered areas of fibroglandular density. FINDINGS: Possible small approximately 3.4 mm mass in anterior upper outer left breast. Diagnostic le ft mammogram is recommended, with ultrasound if required. IMPRESSION: 1. Possible small mass in anterior upper outer quadrant of left breast 2. Recommend diagnostic left mammogram with ultrasound if required BI-RADS Category 0: Incomplete: Needs additional imaging evaluation. Reviewed, dictated and finalized at location A.
== END 2020-06-24 16:14 | disposition home or self-care (01) ==
LOC: ANHIMG 16:21
PROVIDERS: PCP Family Medicine; Visit Provider Nurse Practitioner Family
DX: Z12.31 Encounter for screening mammogram for malignant neoplasm of breast (principal); R92.8 Other abnormal and inconclusive findings on diagnostic imaging of breast
CPT/HCPCS: 77067

== ENCOUNTER 2020-08-22 11:14 | Outpatient (CLI) | payer MEDICARE, MEDICAID, SELFPAY ==
--- NOTE | ~2020-08-22 | MM_ITS ---
EXAMINATION: MM diagnostic mammo unilat LT HISTORY: Possible small mass suggested anterior upper outer quadrant left breast on 06/24/2020 bilater al digital screening mammogram examination TECHNIQUE: Additional 3-D tomosynthesis images of the left breast were performed and synthetic 2-D im ages were generated. CAD analysis was submitted and interpreted. COMPARISON: 06/16/2020 bilateral digital screening mammogram FINDINGS: There is mildly nodular fibroglandular stroma in the upper outer quadrant of the left breas t. A small mass is not definitively excluded in the upper outer quadrant. Upper outer quadrant left b reast ultrasound examination is recommended for correlation. IMPRESSION: 1. Mildly nodular fibroglandular stroma of upper outer quadrant left breast 2. Targeted ultrasound of upper outer quadrant left breast is recommended. BI-RADS Category 0: Incomplete: Needs additional imaging evaluation. Reviewed, dictated and finalized at location A.
== END 2020-08-22 11:15 | disposition home or self-care (01) ==
LOC: ANHIMG 11:17
PROVIDERS: PCP Family Medicine; Visit Provider Family Medicine
DX: N63.21 Unspecified lump in the left breast, upper outer quadrant (principal); R92.8 Other abnormal and inconclusive findings on diagnostic imaging of breast
CPT/HCPCS: 77065

== ENCOUNTER 2020-09-08 12:51 | Outpatient (CLI) | payer MEDICARE, MEDICAID, SELFPAY ==
--- NOTE | ~2020-09-08 | US_ITS ---
US breast LT limited INDICATION: Follow-up left breast asymmetries on recent mammogram. TECHNIQUE: Dedicated Limited left breast ultrasound COMPARISON: Mammogram dated 08/22/2020 FINDINGS: The left breast is composed of normal heterogeneous echotexture without focal solid or cyst ic mass. IMPRESSION: 1: Normal left breast ultrasound. Routine yearly screening mammogram and regular clinical breast examination are recommended. BI-RADS CATEGORY 1 - NEGATIVE Reviewed, dictated and finalized at location A.
== END 2020-09-08 12:52 | disposition home or self-care (01) ==
LOC: ANHIMG 12:54
PROVIDERS: PCP Family Medicine; Visit Provider Family Medicine
DX: R92.8 Other abnormal and inconclusive findings on diagnostic imaging of breast (principal)
CPT/HCPCS: 76642

== ENCOUNTER 2023-02-10 15:49 | Outpatient (CLI) | payer MEDICARE, MEDICAID, SELFPAY ==
--- NOTE | ~2023-02-10 | MM_ITS ---
EXAMINATION: MM screening leonel LT w jo HISTORY: Screening mammogram TECHNIQUE: Craniocaudal and mediolateral oblique 3-D tomosynthesis images were obtained and synthetic 2-D images were generated. CAD analysis was submitted and interpreted. COMPARISON: 09/08/2020 limited left breast ultrasound 08/22/2020 diagnostic left mammogram 06/24/2020, 03/13/2019 left screening mammogram examination BREAST PARENCHYMAL COMPOSITION: There are scattered areas of fibroglandular density. FINDINGS: There is an approximately 2 x 3 mm opacity in the lower inner quadrant of the left breast a t mid depth. Diagnostic left mammogram and left breast ultrasound examination are recommended. No suspicious mass or architectural distortion, malignant calcification, skin thickening or retractio n is noted otherwise. IMPRESSION: 1. 2 x 3 mm mass, lower inner quadrant of left breast 2. Diagnostic left mammogram and left breast ultrasound examination are recommended BI-RADS Category 0: Incomplete: Needs additional imaging evaluation. Reviewed, dictated and finalized at location A. IMPRESSION: 1. 2 x 3 mm mass, lower inner quadrant of left breast 2. Diagnostic left mammogram and left breast ultrasound examination are recomme nded BI-RADS Category 0: Incomplete: Needs additional imaging evaluation.
== END 2023-02-10 15:50 | disposition home or self-care (01) ==
PROVIDERS: PCP Family Medicine; Visit Provider Physician Assistant
DX: Z12.31 Encounter for screening mammogram for malignant neoplasm of breast (principal); N63.24 Unspecified lump in the left breast, lower inner quadrant
CPT/HCPCS: 77063; 77067

== ENCOUNTER 2023-03-08 12:24 | Outpatient (CLI) | payer MEDICARE, MEDICAID, SELFPAY ==
--- NOTE | ~2023-03-08 | MMUS_ITS ---
EXAMINATION: MM diagnostic leonel LT w jo, US breast LT limited HISTORY: 2 x 3 mm mass reported in the lower inner quadrant of the left breast on 02/10/2023 screening mammogram TECHNIQUE: Additional 3-D tomosynthesis images of the left breast were performed and synthetic 2-D im ages were generated. CAD analysis was submitted and interpreted. High resolution lower inner quadrant left breast ultrasound was performed. COMPARISON: 02/10/2023 bilateral screening mammogram FINDINGS: MAMMOGRAPHIC FINDINGS: Faint 3 mm or smaller circumscribed mass is again suggested in the lower mid left breast. ULTRASOUND: 7:00: Approximately 1.7 x 2.2 mm mm hypoechoic area is noted. No internal vascularity or posterior sh adowing is noted. IMPRESSION: 1. Probable benign finding 2. 6 month diagnostic mammogram and left breast ultrasound follow-up are recommended BI-RADS category 3, probably benign findings. Reviewed, dictated and finalized at location A. IMPRESSION: 1. Probable benign finding 2. 6 month diagnostic mammogram and left breast ultrasound follow-up are recomm ended BI-RADS category 3, probably benign findings.
== END 2023-03-08 12:25 | disposition home or self-care (01) ==
PROVIDERS: PCP Family Medicine; Visit Provider Physician Assistant
DX: R92.8 Other abnormal and inconclusive findings on diagnostic imaging of breast (principal)
CPT/HCPCS: 76642; 77061; 77065; G0279

== ENCOUNTER 2023-09-22 10:51 | Outpatient (CLI) | payer MEDICARE, MEDICAID, SELFPAY ==
--- NOTE | ~2023-09-22 | MMUS_ITS ---
EXAMINATION: MM diagnostic leonel LT w jo, US breast LT limited HISTORY: Six-month follow-up of probable benign 7:00 1.7 x 2.2 mm hypoechoic area TECHNIQUE: Full field and spot 3-D tomosynthesis images of the left breast were performed and synthet ic 2-D images were generated. CAD analysis was submitted and interpreted. High resolution targeted le ft breast ultrasound was performed. COMPARISON: 03/08/2023 diagnostic left mammogram and limited left breast ultrasound 02/10/2023 left screening mammogram BREAST PARENCHYMAL COMPOSITION: There are scattered areas of fibroglandular density. FINDINGS: MAMMOGRAPHIC FINDINGS: Low-density approximately 2.6 mm opacity is again noted at mid depth in the lower inner quadrant of t he left breast. ULTRASOUND: Approximately 2.2 x 2.7 mm circumscribed sonolucent lesion is noted in the 6:00 area. No internal vas cularity or posterior shadowing. IMPRESSION: 1. Probable benign finding 2. 6 month diagnostic left mammogram is recommended, with ultrasound if required BI-RADS category 3, probably benign findings. Reviewed, dictated and finalized at location A. IMPRESSION: 1. Probable benign finding 2. 6 month diagnostic left mammogram is recommended, with ultrasound if require d BI-RADS category 3, probably benign findings.
== END 2023-09-22 10:52 | disposition home or self-care (01) ==
PROVIDERS: PCP Family Medicine; Visit Provider Family Medicine
DX: R92.8 Other abnormal and inconclusive findings on diagnostic imaging of breast (principal)
CPT/HCPCS: 76642; 77061; 77065; G0279

== ENCOUNTER 2023-10-18 07:03 | Emergency (ER) | payer MEDICARE, MEDICAID, SELFPAY ==
--- NOTE | ~2023-10-18 | XR_ITS ---
XR knee LT 3V 10/18/2023 08:25 Indication: Left knee pain Procedure: 3 views left knee Comparison: No prior studies for comparison. Findings: There is severe tricompartment osteoarthritis. There is moderate joint effusion. Osteopenia . No acute fracture. No foreign bodies. 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 2: Moderate joint effusion. Reviewed, dictated and finalized at location L. 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 2: Moderate joint effusion.
[2023-10-18 07:12] VITALS: BP 143/81; PULSE 70; RESP 16; TEMP 36.9; O2SAT 100
--- NOTE | 2023-10-18 07:17 | ED.GENADULT ---
HPI - General Adult General Chief complaint: Extremity Injury, Lower Stated complaint: L knee swollen Time Seen by Provider: 10/18/23 07:08 History of Present Illness HPI narrative: 83-year-old female presenting to the ED for evaluation of left knee pain. patient states that she did have a ground level fall approximately 2 days ago. Patient reports intermittent left knee pain that is worsened with ambulation. Patient denies any current knee pain. Patient denies striking head denies loss of consciousness. Patient denies any left upper leg and left lower leg ankle or foot pain. Patient denies any other injuries or complaints. Related Data Home Medications Medication Instructions Recorded Confirmed Adult Low Dose Aspirin 81 mg PO DAILY 02/14/20 02/14/20 Oyster Shell Calcium 500 500 mg PO DAILY 02/14/20 02/14/20 aluminum-mag hydroxide-simethicone 30 ml PO Q6H PRN Indigestion 02/14/20 02/14/20 200 mg-200 mg-20 mg/5 mL oral susp (Almacone) bisacodyl 5 mg tablet,delayed 5 mg PO PRN PRN Constipation 02/14/20 02/14/20 release bismuth subsalicylate 262 mg/15 mL 524 mg PO QID PRN Loose Stool 02/14/20 02/14/20 oral suspension (Bismatrol) buspirone 10 mg tablet 10 mg PO BID 02/14/20 02/14/20 calcium carbonate 500 mg calcium 500 mg PO DAILY 02/14/20 02/14/20 (1,250 mg) tablet (Oyster Shell Calcium 500) cetirizine 10 mg PO DAILY 02/14/20 02/14/20 cyanocobalamin (vitamin B-12) 100 100 mcg PO DAILY 02/14/20 02/14/20 mcg tablet (Vitamin B-12) diphenhydramine HCl 25 mg capsule 25 mg PO Q6H PRN Allergy Symptoms 02/14/20 02/14/20 (Benadryl) divalproex 125 mg capsule,delayed 125 mg PO BID 02/14/20 02/14/20 release sprinkle duloxetine 60 mg capsule,delayed 60 mg PO DAILY 02/14/20 02/14/20 release guaifenesin 100 mg/5 mL oral 200 mg PO Q4H PRN Cough 02/14/20 02/14/20 liquid (Robafen) irbesartan 150 mg tablet 150 mg PO DAILY 02/14/20 02/14/20 levothyroxine 112 mcg tablet 112 mcg PO DIRECTED 02/14/20 02/14/20 loperamide 2 mg capsule 2 mg PO Q2-4H PRN Diarrhea 02/14/20 02/14/20 memantine 5 mg tablet 5 mg PO BID 02/14/20 02/14/20 potassium chloride 20 mEq 20 meq PO BID 02/14/20 02/14/20 tablet,extended release(part/cryst) rivastigmine 9.5 mg/24 hour 9.5 mg transdermal DAILY 02/14/20 02/14/20 transdermal patch (Exelon Patch) trazodone 100 mg tablet 100 mg PO HS 02/14/20 02/14/20 wheat dextrin 3 gram/3.5 gram oral 3 g PO DAILY 02/14/20 02/14/20 powder packet (Benefiber Clear Sugar Free(dextrin)) Allergies Allergy/AdvReac Type Severity Reaction Status Date / Time No Known Allergies Allergy Verified 10/18/23 07:20 Review of Systems Review of Systems: All systems reviewed & are unremarkable except as noted in HPI and below PMFSH Past Medical History Medical History (Updated 10/18/23 @ 09:39 by Rinku Cox MD) Breast cancer Dementia HTN (hypertension) Hypothyroid Post-menopausal Schizophrenia Seizure disorder Surgical History Surgical History History of mastectomy Right Social History Social History (Updated 02/14/20 @ 13:48 by Roshan Whitt MD) Social History: Resides in a alf. She is a grey of the [facility] and full code status. Smoking status: Unknown if ever smoked Alcohol intake: unknown Substance use: unknown Occupation/Education: retired Additional occupation/education comments: Disabled due to psychological condition Gender identity (if verbalized by the patient): Female Exam Narrative: APPEARANCE: Well appearing, no pain, no distress, well-nourished. HEAD: normocephalic, atraumatic. EYES: PERRLA/EOMI, conjunctivae clear. NOSE: Normal no drainage EARS:TMS clear with good light reflex. THROAT: Pharynx clear, no exudate. NECK: Supple. No adenopathy, no masses. RESPIRATORY: Airway patent, respirations nonlabored. Clear to auscultation bilaterally, no rales, rhonchi, wheezing. CARDIOVASCULA
[2023-10-18 07:59] VITALS: BP 166/67; PULSE 70; RESP 18; O2SAT 100
[2023-10-18 09:14] VITALS: BP 158/79; PULSE 75; RESP 18; O2SAT 99
[2023-10-18 09:31] LABS: Appearance Urine Clear (Clear); Bacteria Urine None Seen /hpf; Bilirubin Urine Negative (Negative); Blood Urine 1+ (Negative); Color Urine Yellow (Yellow); Glucose Urine UA Negative (Negative); Ketones Urine Negative (Negative); Leukocyte Esterase Ur Negative LEU/UL (Negative); Need Manual Microscopic Reviewed; Nitrate Urine Negative (Negative); Non Pathogenic Casts 0-2; Protein Urine Negative (Negative); Specific Grav Ur 1.007 (1.001-1.035); Squamous Epithelial Cell Urine None seen /hpf (Few); Urobilinogen Urine 0.2 mg/dL (<2.0); WBC Urine 0-5 /hpf; pH Urine 6.5 (5.0-9.0)
[2023-10-18 09:33] LABS: Add Urine Microscopic? YES
[2023-10-18 09:44] VITALS: BP 143/75; PULSE 66; RESP 18; O2SAT 98
[2023-10-18 09:54] VITALS: BP 150/76; PULSE 86; RESP 16; O2SAT 96
== END 2023-10-18 10:07 | disposition home or self-care (01) ==
PROVIDERS: Emergency Provider Emergency Medicine; PCP Physician Assistant
DX: M25.562 Pain in left knee (principal); F03.90 Unspecified dementia, unspecified severity, without behavioral disturbance, psychotic disturbance, mood disturbance, and anxiety; I10 Essential (primary) hypertension; E03.9 Hypothyroidism, unspecified; G40.909 Epilepsy, unspecified, not intractable, without status epilepticus; Z85.3 Personal history of malignant neoplasm of breast
CPT/HCPCS: 73562; 81001; 99283

== ENCOUNTER 2024-04-05 07:51 | Emergency (ER) | payer MEDICARE, MEDICAID, SELFPAY ==
--- NOTE | ~2024-04-05 | CT_ITS ---
Non-contrast Head CT History: Mental status change Technique: Axial non-contrast imaging of the brain was performed. Dose reduction technique was used on this scan by utilizing automated exposure control and iterative reconstruction technique. The dose -length product (DLP) was 529.67 mGy-cm. Findings: There is no evidence of intracranial hemorrhage, mass lesion, or acute infarct. Brain par enchyma appears normal. The ventricles and subarachnoid spaces are normal in size. The calvarium ap pears normal. The visualized paranasal sinuses and mastoid air cells are clear. Impression: No significant abnormality seen. Reviewed, dictated and finalized at location . Impression: No significant abnormality seen.
--- NOTE | 2024-04-05 07:56 | ECG_ITS ---
SEE SCANNED COPY FOR CONFIRMED REPORT MTDD
[2024-04-05 07:57] VITALS: BP 152/79; PULSE 86; RESP 18; TEMP 36.7; O2SAT 98
[2024-04-05 08:05] VITALS: PULSE 72
[2024-04-05 08:36] LABS: Basophils Absolute Auto 0.1 K/mm3 (0.0-0.1); Basophils Percent Auto 0.8 % (0.2-1.2); Eosinophils Absolute Auto 0.4 K/mm3 (0-0.3); Hematocrit 39.8 % (37.0-47.0); Hemoglobin 12.4 g/dL (12.0-15.0); Immature Granulocyte Absolute 0.07 K/mm3 (0.00-0.031); Immature Granulocyte Percent A 0.6 % (0-0.5); Lymphocytes Absolute Auto 2.28 K/mm3 (0.9-3.2); Lymphocytes Percent Auto 19.4 % (18.3-44.2); Mean Corpuscular HGB Conc 31.2 g/dl (32-36); Mean Corpuscular Hemoglobin 30.2 pg (26-34); Mean Corpuscular Volume 97.1 fl (80-100); Mean Platelet Volume 10.9 fl (7.4-10.4); Monocytes Percent Auto 8.3 % (2.6-8.5); Neutrophils Percent Auto 67.9 % (45.5-73.1); Platelet Count Result 329 k/mm3 (150-375); Red Cell Distribution Width 13.7 % (11.5-14.5); White Blood Count 11.8 K/mm3 (4.5-10.0)
[2024-04-05 08:39] LABS: Appearance Urine Clear (Clear); Bacteria Urine None Seen /hpf; Bilirubin Urine Negative (Negative); Blood Urine 1+ (Negative); Color Urine Yellow (Yellow); Glucose Urine UA Negative (Negative); Ketones Urine Negative (Negative); Leukocyte Esterase Ur Negative LEU/UL (Negative); Nitrate Urine Negative (Negative); Non Pathogenic Casts 0-2; Protein Urine Negative (Negative); Specific Grav Ur 1.008 (1.001-1.035); Squamous Epithelial Cell Urine None Seen /hpf (Few); Urobilinogen Urine 0.2 mg/dL (<2.0); WBC Urine 0-5 /hpf (0-3); pH Urine 6.5 (5.0-9.0)
[2024-04-05 08:44] LABS: Add Urine Microscopic? YES
--- NOTE | 2024-04-05 08:44 | ED.AMS ---
HPI - Altered Mental Status General Chief Complaint: Altered Mental Status Stated Complaint: bilateral swollen legs, confusion Time Seen by Provider: 04/05/24 07:54 History of Present Illness HPI narrative: Patient is an 83-year-old female who presents the ER with reports of increased confusion according to family. Patient has dementia and schizophrenia at baseline. Apparently when they ask her to do things she will no longer follow directions. No recent falls. She was recently diagnosed with the UTI. She has been treated for it. No reports of pain. No additional concerns by family. Related Data Home Medications Medication Instructions Recorded Confirmed Adult Low Dose Aspirin 81 mg PO DAILY 02/14/20 02/14/20 Oyster Shell Calcium 500 500 mg PO DAILY 02/14/20 02/14/20 aluminum-mag hydroxide-simethicone 30 ml PO Q6H PRN Indigestion 02/14/20 02/14/20 200 mg-200 mg-20 mg/5 mL oral susp (Almacone) bisacodyl 5 mg tablet,delayed 5 mg PO PRN PRN Constipation 02/14/20 02/14/20 release bismuth subsalicylate 262 mg/15 mL 524 mg PO QID PRN Loose Stool 02/14/20 02/14/20 oral suspension (Bismatrol) buspirone 10 mg tablet 10 mg PO BID 02/14/20 02/14/20 calcium carbonate (Oyster Shell 500 mg PO DAILY 02/14/20 02/14/20 Calcium 500) cetirizine 10 mg PO DAILY 02/14/20 02/14/20 cyanocobalamin (vitamin B-12) 100 100 mcg PO DAILY 02/14/20 02/14/20 mcg tablet (Vitamin B-12) diphenhydramine HCl 25 mg capsule 25 mg PO Q6H PRN Allergy Symptoms 02/14/20 02/14/20 (Benadryl) divalproex 125 mg capsule,delayed 125 mg PO BID 02/14/20 02/14/20 release sprinkle duloxetine 60 mg capsule,delayed 60 mg PO DAILY 02/14/20 02/14/20 release guaifenesin 100 mg/5 mL oral 200 mg PO Q4H PRN Cough 02/14/20 02/14/20 liquid (Robafen) irbesartan 150 mg tablet 150 mg PO DAILY 02/14/20 02/14/20 levothyroxine 112 mcg tablet 112 mcg PO DIRECTED 02/14/20 02/14/20 loperamide 2 mg capsule 2 mg PO Q2-4H PRN Diarrhea 02/14/20 02/14/20 memantine 5 mg tablet 5 mg PO BID 02/14/20 02/14/20 potassium chloride 20 mEq 20 meq PO BID 02/14/20 02/14/20 tablet,extended release(part/cryst) rivastigmine 9.5 mg/24 hour 9.5 mg transdermal DAILY 02/14/20 02/14/20 transdermal patch (Exelon Patch) trazodone 100 mg tablet 100 mg PO HS 02/14/20 02/14/20 wheat dextrin 3 gram/3.5 gram oral 3 g PO DAILY 02/14/20 02/14/20 powder packet (Benefiber Clear Sugar Free(dextrin)) Allergies Allergy/AdvReac Type Severity Reaction Status Date / Time No Known Allergies Allergy Verified 04/05/24 07:52 Review of Systems Review of Systems: ROS unobtainable: Yes unobtainable due to mental status [facility] Past Medical History Medical History (Updated 04/05/24 @ 10:00 by Gume Landrum MD) Breast cancer Dementia HTN (hypertension) Hypothyroid Post-menopausal Schizophrenia Seizure disorder Surgical History Surgical History History of mastectomy Right Social History Social History (Updated 02/14/20 @ 13:48 by Roshan Whitt MD) Social History: Resides in a [facility]. She is a grey of the [facility] and full code status. Smoking status: Unknown if ever smoked Alcohol intake: unknown Substance use: unknown Occupation/Education: retired Additional occupation/education comments: Disabled due to psychological condition Gender identity (if verbalized by the patient): Female Exam Narrative: GENERAL: Well-appearing, Obese, and in no acute distress. HEAD: Normocephalic, atraumatic. ENT: Mucous membranes moist. NECK: Supple. CHEST: Clear to auscultation. No respiratory distress. HEART: Regular rate and rhythm. Normal peripheral pulses. ABDOMEN: Soft, nontender, nondistended. EXTREMITIES: Normal range of motion. 1+ edema. SKIN: Warm, dry, no rash. NEURO: Alert and oriented x1. Course Course Emergency Course: patient resting comfortably. Labs unremarkable with exception n
[2024-04-05 08:45] LABS: Alanine Aminotransferase 12 U/L (6-35); Albumin Level 4.6 g/dL (3.5-5.1); Alkaline Phosphatase 96 U/L (38-126); Anion Gap 10 mmol/L (4-12); Aspartate Amino Transferase 27 U/L (14-36); Blood Urea Nitrogen 18 mg/dL (7-17); Calcium 9.2 mg/dL (8.4-10.2); Carbon Dioxide 28 mmol/L (22-30); Chloride 104 mmol/L (98-107); Estimated CRCL calculation 54 ml/min; Estimated Glomerular Filt Rate > 60; Glucose 120 mg/dL (65-110); Potassium 3.4 mmol/L (3.4-5.0); Sodium 142 mmol/L (137-145)
[2024-04-05 09:08] LABS: INR 0.9; Prothrombin Time 12.7 Seconds (11.1-14.7)
[2024-04-05 09:09] LABS: Partial Thromboplastin Time 25.8 Seconds (22.3-36.8)
== END 2024-04-05 10:13 | disposition home or self-care (01) ==
PROVIDERS: Emergency Provider Emergency Medicine; PCP Nurse Practitioner Family
DX: F03.90 Unspecified dementia, unspecified severity, without behavioral disturbance, psychotic disturbance, mood disturbance, and anxiety (principal); G40.909 Epilepsy, unspecified, not intractable, without status epilepticus; I10 Essential (primary) hypertension; E03.9 Hypothyroidism, unspecified; F20.9 Schizophrenia, unspecified; Z85.3 Personal history of malignant neoplasm of breast; Z90.11 Acquired absence of right breast and nipple; Z79.82 Long term (current) use of aspirin; I51.7 Cardiomegaly
CPT/HCPCS: 36415; 70450; 80053; 81001; 85025; 85610; 85730; 93005; 99284

== ENCOUNTER 2024-05-03 10:59 | Outpatient (CLI) | payer MEDICARE, MEDICAID, SELFPAY ==
--- NOTE | ~2024-05-03 | MM_ITS ---
EXAMINATION: MM diagnostic leonel LT w jo HISTORY: Follow-up left breast mass TECHNIQUE: Additional 3-D tomosynthesis images of the left breast were performed and synthetic 2-D im ages were generated. CAD analysis was submitted and interpreted. COMPARISON: Comparison to multiple prior studies sequentially, with oldest reviewed study dated 03/13. BREAST PARENCHYMAL COMPOSITION: Not dense: There are scattered areas of fibroglandular density. FINDINGS: There are no suspicious masses, calcifications or architectural distortion in the left [address]ine st to suggest malignancy. Focal mass in the lower inner quadrant of the left breast has decreased in size, consistent with benign nodule. IMPRESSION: 1. No mammographic evidence for malignancy in the left breast. 2. Routine yearly screening mammogram and regular clinical breast examination are recommended. BI-RADS Category 2: Benign finding(s). Reviewed, dictated and finalized at location B. IMPRESSION: 1. No mammographic evidence for malignancy in the left breast. 2. Routine yearly screening mammogram and regular clinical breast examination a re recommended. BI-RADS Category 2: Benign finding(s).
== END 2024-05-03 11:00 | disposition home or self-care (01) ==
PROVIDERS: PCP Nurse Practitioner Family; Visit Provider Family Medicine
DX: R92.8 Other abnormal and inconclusive findings on diagnostic imaging of breast (principal)
CPT/HCPCS: 77061; 77065; G0279

== ENCOUNTER 2025-04-29 15:36 | Emergency (ER) | payer MEDICARE, MEDICAID, SELFPAY ==
--- NOTE | ~2025-04-29 | CT_ITS ---
EXAMINATION: CT facial & cervical spine wo DATE: 04/29/2025 17:59 INDICATION: fall, hi, bruising L eye TECHNIQUE: Computed tomography (CT) of the maxillofacial region and cervical spine was performed with out intravenous contrast. Automated exposure control and iterative reconstruction technique were empl oyed. The dose-length product was 488.17 mGy-cm. COMPARISON: None FINDINGS: CERVICAL: Vertebral Body Alignment: Intact. Craniocervical and atlantoaxial alignment: Mild degenerative change. Alignment intact. Osseous structures/fracture: No evidence of a lytic or blastic process in the visualized spine. No e vidence of acute fracture. Cervical soft tissues: The paraspinal soft tissues planes are maintained. Degenerative changes: Degenerative changes, without severe neural foraminal or central canal narrowin g. FACE: Soft Tissues: Question of soft tissue swelling over the left upper lip and soft tissue irregularity/ laceration along the anterior aspect of the left nares. Minimal soft tissue swelling over the left or bit and cheek. Facial bones: Nondisplaced fracture of the left anterior and inferior maxillary bone just to the lef t of the maxillary spine. No lytic or blastic process. Eyes: The globes are intact. The soft tissue planes of the orbits are maintained. Paranasal Sinuses: The visualized aerated spaces are clear. Foreign Bodies: No radiopaque foreign bodies. Other Findings: None. IMPRESSION: No acute fracture or traumatic malalignment in the cervical spine. Small nondisplaced fracture of the left anterior and inferior maxillary bone, to the left of the maxi llary spine. Reviewed, dictated and finalized at location K. IMPRESSION: No acute fracture or traumatic malalignment in the cervical spine. Small nondisplaced fracture of the left anterior and inferior maxillary bone, t o the left of the maxillary spine.
--- NOTE | ~2025-04-29 | CT_ITS ---
EXAMINATION: CT brain wo con DATE: 04/29/2025 17:59 INDICATION: fall, hi, loc . TECHNIQUE: Computed tomography (CT) of the head was performed without intravenous contrast. The mA wa s adjusted according to patient size. Iterative reconstruction technique was employed. The dose-lengt h product was 529.67 mGy-cm. COMPARISON: 04/05/2024. FINDINGS: No acute intracranial hemorrhage or extra-axial fluid collection. No hydrocephalus, mass, or herniation. No acute ischemic infarct. Unremarkable dural venous sinus attenuation. No acute osseous abnormality. The aerated spaces are clear. Mild atrophy and chronic white matter change. Atherosclerotic intracranial calcification. Bilateral b carlos ganglia calcification. IMPRESSION: No acute intracranial process. Reviewed, dictated and finalized at location K.
--- NOTE | ~2025-04-29 | XR_ITS ---
EXAMINATION: XR chest 1V Exam Date/Time: 04/29/2025 17:57 CDT HISTORY: fall Comparison: 02/14/2020. RESULT: Lines, tubes, and devices: None. Lungs and pleura: Patchy diffuse groundglass opacities, mild reticular opacities, and indistinct ves sels. Minimal streaky right basilar opacities. Cardiomediastinal silhouette: Stable. Other: No acute osseous or upper abdominal finding. Scoliosis. Multilevel degenerative disc disease. Degenerative changes in the bilateral shoulders IMPRESSION: Pulmonary findings may represent mild edema. Right basilar subsegmental atelectasis/consolidation. Reviewed, dictated and finalized at location K. IMPRESSION: Pulmonary findings may represent mild edema. Right basilar subsegmental atelect asis/consolidation.
--- OUTSIDE RECORDS SUMMARY | 2025-04-29 15:42 | XMS_ITS | Data Portability ---
Author Organization [place] - [facility] [employer], Main Office Address [address] [place] [address] Care Team Providers Care Senior Hr Manager Name Role Phone ISMA LUIS Primary Care Provider ISMA LUIS Referring Provider [phone] Assessment No assessment recorded. Plan of Treatment Reminders Order Date Submit Date Provider Last Modified By Organization Details Last Modified Time Details Appointments Establish ed Patient 15 2024 02:30P M Binu De Oliveira DPM Not available Not available Not available Medicare Wellness 30 2024 10:00A M JUAN ANTONIO Staley Not available Not available Not available Lab None recorded. Referral None recorded. Procedures None recorded. Surgeries None recorded. Imaging None recorded. Medication Orders cholestyr amine (with sugar) 4 gram oral powder 2024 025 [email or web address] 1 [employer], [address] [place] [address] Pkw[address], [address] [place] [address], [address], 01/30/2025 13:58:[address] - ER 3 mg capsule,d elayed,ex tended release 2023 024 [facility] [employer], [facility] [facility] [address], , [place], [address], 10/31/2024 12:52:41 Patient TargetsNo targets recorded. Patient Instructions Encounter Date Encounter Id Patient Instructions Last Modified By Organization Details Last Modified Time 10/31/2024 [id number] PT WITH LYMPHOCYTIC COLITIS . RECOMMEND BUDESONIDE 3 MG -ER , 3 TABS DAILY X 12 WEEKS . F/U IN 3 MTHS. [email or web address] Not available 10/31/2024 11:34:01 01/30/2025 [id number] PT WITH LYMPHOCYTIC COLITIS NOT RESPONDING TO BUDESONIDE 9 MG /D . ADD CHOLESTYRAMINE 4 GM DAILY . F/U IN 4 WEEKS CALL IN 1 WEEK WITH RESULTS. [email or web address] Not available 01/30/2025 13:32:40 03/20/2025 [id number] PT WITH LYMPHOCYTIC COLITIS. CONT BUDESONIDE 3MG , 3 TABS DAILY ADD LOPERAMIDE 2 MG , 2 TABS IN THE AM . F/U IN 4 WEEKS [email or web address] Not available 03/20/2025 13:09:36 04/24/2025 [id number] GIVE CHOLESTYRAMINE AT 3 PM MED SCHEDULE . STAGGER FROM [facility] . [email or web address] Not available 04/24/2025 13:01:46 PT WITH LYMPHOCYTIC COLITIS , RECOMMEND TO CONTINUE BUDESONIDE 3MG , 3 TABS DAILY . AIDE WILL CALL WITH RESULTS . F/U IN 4 WEEKS . [email or web address] Not available 04/24/2025 13:02:01 Reason for Referral None Reported. Results Created Date Observation Date Name Description Value Unit Range Abnormal Flag Note LastModifiedBy Organization Detail LastModifiedTime Result Notes None recorded. Problems Name Problem SNOMED Code Status Onset Date Resolution Date Notes Provider Name and Address Organization Details Recorded Time Bilateral tailor's bunion of feet 7116658943389 9103 Active 2021 Not Available [facility] 3 17:13:00 Venous varices 901183584 Active 2021 Not Available [facility] 3 17:13:00 Seizure disorder 280844801 Active Not Available [facility] 3 17:13:00 Disorder of thyroid gland 78116919 Active Not Available [facility] 3 17:13:00 Microscopi c hematuria 240803291 Active Not Available [facility] 3 17:13:00 Malignant tumor of breast 412732933 Active Not Available [facility] 3 17:13:00 Unable to cut own toenails 044221944 Active 2022 Not Available [facility] 3 17:13:00 Peripheral arterial occlusive disease 139054184 Active 2021 Not Available [facility] 3 17:13:00 Hypothyroi dism 81541937 Active 2021 Not Available [facility] 3 17:13:00 Simple obesity 913080327 Active 2021 Not Available [facility] 3 17:13:00 History of mastectomy 788672385 Active 2021 Not Available [facility] 3 17:13:00 Incontinen ce 46256325 Active Not Available [facility] 3 17:13:00 Dementia 26069581 Active 2021 Not Available [facility] 3 17:13:00 Schizophre ursula 61435962 Active 2021 Not Available [facility] 3 17:13:00 Encephalom alacia 44839995 Active 2021 Not Available [facility] 3 17:13:01 Moderate intellectu al disability 94887443 Active 2021 Not Available [facility] 3 17:13:01 Urinary tract infectious disease 43054016 Active Not Available [facility] 3 17:13:01 Dystrophia unguium 53139856 Active 2021 Not Available [facility] 3 17:13:01 Seizure 48833845 Active 2021 Not Available [facility] 3 17:13:01 Mammograph y abnormal 887825605 Active 2022 C[place] Mcdaniels [address], [place], [address] , [employer] 3 11:21:11 Diarrhea 73599598 Active 2022 [place] Mcdaniels [address], [address], [place], [address] , [employer] 3 11:31:58 Bunion 684718122 Active 2022 Binu De Oliveira DPM [address], [place], [address] , [facility] 3 12:52:13 Essential hypertensi on 97397207 Active 2022 [place] Mcdaniels [address], [place], [address] , [employer] [facility] 3 10:45:10 Cobalamin deficiency 761296675 Active 2022 [place] Mcdnaiels [address], [place], [address] , [employer] [facility] 3 10:45:28 Vitamin D deficiency 92559141 Active 2022 [place] Mcdaniels [address], [address], [place], [address] , [employer] [facility] 3 10:45:35 Hypertrigl yceridemia 999560649 Active 2022 [place] Mcdaniels [address], [place], [address] , [employer] 3 10:46:49 Acute urinary tract infection 881977414 Active 2023 NIGEL Mills [address], [address], [place], [address] , [employer] [facility] 4 14:05:52 Dysuria 82185197 Active 2023 NIGEL Mills [address], [address] [facility], [place], [address] , [employer] [facility] 4 14:05:58 Swelling of bilateral lower limbs 270146828 Active 2023 NIGEL Vega [address], [place], [address] , [employer] [facility] 4 11:00:58 Lymphocyti c colitis 8823491507 Active 2023 Kaylan Cassidy MD [address], [place], [address] , [employer] [facility] 4 11:32:57 Problem Notes None recorded. Procedures Surgical History Date Name Laterality Status Provider Name and Address Organization Details Recorded Time 4 Medicare Wellness CPT Code, subsequent completed February BREANN Medina [facility] [employer] 05/07/2024 10:45:30 4 Nail Debridement completed Binu De Oliveira DPM [address], [place], [address], [email or web address] 05/01/2024 17:48:34 3 Nail Debridement completed Binu De Oliveira DPM [address], [place], [address], [employer] 09/21/2023 13:53:22 3 Medicare Wellness CPT Code, Initial completed Danyell Dietz CMA [email or web address] [facility] [employer] 05/03/2023 11:14:19 3 Nail Debridement completed Binu De Oliveira DPM [address], [place], [address], [employer] 03/22/2023 14:59:06 Imaging Results None recorded. Procedure Notes None recorded. Medical Equipment None Reported. Allergies No known drug allergies Medications Name Sig Start Date Stop Date Status Note LastModified by Organization Details LastModified Time multivitami n tablet active Not Available Not Available Not Available furosemide 40 mg tablet Take 1 tablet every day by oral route. 05/01 completed Not Available Not Available Not Available buspirone 5 mg tablet 05/01 completed Not Available Not Available Not Available acetaminoph en 325 mg tablet Take 2 tablets every 4 hours by oral route. active Not Available Not Available No t Available cyanocobala min (vit B-12) 100 mcg tablet active Not Available Not Available N ot Available loperamide 2 mg capsule take 2 capsules every morning active Not Available Not Available No t Available cetirizine 10 mg tablet active Not Available Not Available Not Available phenazopyri dine 200 mg tablet 05/01 completed Not Available Not Available Not Available loperamide 2 mg tablet Take 1 tablet twice a day by oral route. 01/30 completed Not Available Not Available Not Available aspirin 81 mg tablet,vadim yed release active Not Available Not Available Not Available rivastigmin e 6 mg capsule Take 1 capsule twice a day by oral route. active Not Available Not Available No t Available potassium chloride 20 mEq oral packet 09/24 completed Not Available Not Available Not Available potassium chloride ER 20 mEq tablet,exte nded release(par t/cryst) active Not Available Not Available Not Available trazodone 100 mg tablet active Not Available Not Available Not Available Triple Antibiotic 3.5 mg-400 unit-5,000 unit/gram topical ointment active Not Available Not Available Not Available cephalexin 500 mg capsule Take 1 capsule every 6 hours by oral route for 10 days. 05/01 completed Not Available Not Available Not Available levothyroxi ne 125 mcg tablet Take 1 tablet every day by oral route. active Not Available Not Available No t Available buspirone 10 mg tablet 05/01 completed Not Available Not Available Not Available naproxen sodium 220 mg tablet 01/30 completed Not Available Not Available Not Available ergocalcife rol (vitamin D2) 1,250 mcg (50,000 unit) capsule active Not Available Not Available Not Available irbesartan 150 mg tablet active Not Available Not Available Not Available budesonide DR - ER 3 mg capsule,del ayed,extend ed release Take 3 capsules every day by oral route in the morning for 90 days, for DIARRHEA. active Not Available Not Available No t Available divalproex 125 mg capsule,del ayed release sprinkle active Not Available Not Available Not Available levothyroxi ne 112 mcg tablet 05/01 completed Not Available Not Available Not Available Stomach Relief 262 mg/15 mL oral suspension Take by oral route. active Not Available Not Available No t Available Oyster Shell Calcium-500 500 mg (as carbonate 1,250 mg) tablet active Not Available Not Available Not Available cholestyram ine (with sugar) 4 gram oral powder Take 1 scoop every day by oral route after meal(s) for 90 days, for LYMPHOCYT IC COLITIS. 2024 active Not Available Not Available Not Avai lable cholestyram ine (with sugar) 4 gram powder for susp in a packet active Not Available Not Available Not Available memantine 10 mg tablet active Not Available Not Available Not Available memantine 5 mg tablet active Not Available Not Available No t Available nitrofurant oin monohydrate /macrocryst als 100 mg capsule TAKE 1 CAPSULE BY MOUTH TWICE DAILY 12/21 completed Not Available Not Available Not Available duloxetine 60 mg capsule,del ayed release active Not Available Not Available Not Available Mapap (acetaminop hen) 05/01 completed Not Available Not Available Not Available aspirin 05/01 completed Not Available Not Available Not Available levothyroxi ne 09/24 completed Not Available Not Available Not Available calcium 05/01 completed Not Available Not Available Not Available lorazepam 05/01 completed Not Available Not Available Not Available loperamide 09/24 completed Not Available Not Available Not Available naproxen 05/01 completed Not Available Not Available Not Available Benadryl 2021 active Not Available Not Available Not Avai lable bisacodyl 05/01 completed Not Available Not Available Not Available trazodone 09/24 completed Not Available Not Available Not Available Bismatrol 05/01 completed Not Available Not Available Not Available cetirizine 05/01 completed Not Available Not Available Not Available Robafen 05/01 completed Not Available Not Available Not Available multivitami n 05/01 completed Not Available Not Available Not Available Almacone-2 05/01 completed Not Available Not Available Not Available D2.5 %-0.45 % sodium chloride 05/01 completed Not Available Not Available Not Available rivastigmin e 9.5 mg/24 hour transdermal patch Apply 1 patch every day by transderm al route. active Not Available Not Available No t Available Chest Congestion Relief 100 mg/5 mL oral liquid Take 10 mL every 4 hours by oral route. 06/19 completed Not Available Not Available Not Available GaviLyte-G 236 gram-22.74 gram-6.74 gram-5.86 gram oral solution DIRECTED 01/30 completed Not Available Not Available Not Available B12 09/19 completed Not Available Not Available Not Available A and D (lanolin-pe trolatum) topical ointment APPLY TOPICALLY TO BUTTOCK EACH SHIFT. NO LIMIT WITH EVERY DIAPER CHANGE active Not Available Not Available No t Available Vitals Date Recorded Body height Body mass index (BMI) Body weight Heart rate Systolic blood pressure Diastolic blood pressure Provider Name and Address Organization Details Last Updated DateTime 5 152.4 cm 37.1 kg/m2 33020.5 5 g 72 /min 142 mm[Hg] 78 mm[Hg] Shola Castellano [facility] [employer] 5 11:13:34 Date Recorded Body height Body mass index (BMI) Body weight Heart rate Systolic blood pressure Diastolic blood pressure Provider Name and Address Organization Details Last Updated DateTime 5 152.4 cm 38.1 kg/m2 70130.5 1 g 70 /min 140 mm[Hg] 76 mm[Hg] Shola Castellano [facility] [employer] 5 12:20:54 Date Recorded Body height Body mass index (BMI) Body weight Heart rate Oxygen saturation Oxygen saturation in Arterial blood by Pulse oximetry Systolic blood pressure Diastolic blood pressure Provider Name and Address Organization Details Last Updated DateTime 5 152.4 cm 37.5 kg/m2 36137.7 4 g 73 /min 98 % 98 % 118 mm[Hg] 82 mm[Hg] Shola Castellano [facility] [employer] 5 12:41:12 Date Recorded Body height Body mass index (BMI) Body weight Heart rate Oxygen saturation Oxygen saturation in Arterial blood by Pulse oximetry Systolic blood pressure Diastolic blood pressure Provider Name and Address Organization Details Last Updated DateTime 4 152.4 cm 35.9 kg/m2 42302 g 72 /min 99 % 99 % 134 mm[Hg] 72 mm[Hg] LUH Chatman [employer] 4 11:23:41 Date Recorded Body height Body mass index (BMI) Body weight Body temperature Heart rate Systolic blood pressure Diastolic blood pressure Provider Name and Address Organization Details Last Updated DateTime 4 152.4 cm 37.1 kg/m2 87111.5 5 g 97.2 [degF] 70 /min 140 mm[Hg] 80 mm[Hg] Africa Rowland RN [facility] 4 10:28:45 Social History Question Answer Notes LastModified by Organizat ion Details LastModified Time Tobacco Smoking Status Never Smoker JESENIA Plunkett, [facility] 05/03/2023 11:16:25 What Is Your Level Of Caffeine Consumption? Occasional [email or web address] Information not available 05/03/2023 Has Tobacco Cessation Counseling Been Provided? No [email or web address] Information not available 05/03/2023 Sex: Unknown Functional Status Question Answer Note LastModified by Organizat ion Details LastModified Time Do you use any illicit or recreational drugs? No [email or web address] Information not available 05/03/2023 Do you or have you ever used any other forms of tobacco or nicotine? No [email or web address] Information not available 05/03/2023 What is your level of alcohol consumption? None [email or web address] Information not available 05/03/2023 Mental Status None recorded. Family History Nothing Reported. Medical History No medical history recorded. Gynecological History Statement/Question Response Sexually Active? N Menses Monthly N STIs/STDs N Current Control Method Menopause Breast Problems no Discharge no Obstetrics History GPAL:G 0 P 0 0 0 0 Immunizations Vaccine Type Date Status Note Provider Nam e and Address Organization Details Recorded Time Influenza, split virus, quadrivalent, preservative 2 completed JESENIA Maloney, [facility] 11/01/2023 10:34:51 COVID-19, mRNA, LNP-S, PF, 100 mcg/0.5mL dose or 50 mcg/0.25mL dose 2 completed JESENIA Maloney, [facility] 11/01/2023 10:34:51 COVID-19, mRNA, LNP-S, PF, 100 mcg/0.5mL dose or 50 mcg/0.25mL dose 1 completed JESENIA Maloney [facility] 11/01/2023 10:34:51 COVID-19, mRNA, LNP-S, PF, 100 mcg/0.5mL dose or 50 mcg/0.25mL dose 1 completed Rut Enriquez CMA null, [place] - [facility] [employer] [facility] 11/01/2023 10:34:51 COVID-19, mRNA, LNP-S, PF, 100 mcg/0.5mL dose or 50 mcg/0.25mL dose 1 completed Rut Enriquez CMA null, [place] - [facility] [employer] [facility] 11/01/2023 10:34:51 Past Encounters Encounter ID Performer Location Encounter Start Date Encounter Closed Date Diagnosis/Indication Diagnosis SNOMED-CT Code Diagnosis ICD10 Code Diagnosis Note [id number] Binu De Oliveira DPM [facility] [place] [address] [place] [address] 01/12/2022 00:00:00 01/12/2022 13:09:53 [id number] [place] Mcd[facility]iels [facility] [address] [place] [address] 09/28/2022 00:00:00 09/28/2022 13:06:20 [id number] [place] Mcd[facility]iels [facility] [address] [place] [address] 10/12/2022 00:00:00 10/12/2022 14:33:25 [id number] [place] Mcd[place]iels [facility] [address] [place] [address] 12/21/2022 00:00:00 12/21/2022 13:22:16 [id number] [facility] [address] [place] [address] 12/28/2022 00:00:00 12/28/2022 14:54:35 [id number] Binu DeO liveira DPM [facility] [place] [address] [place] [address] 03/22/2023 14:27:48 03/22/2023 15:03:11 Dystrophia unguium 25823317 L60.3 Nails 1 through 10 were debrided with sharp mechanical debridemen t without incident. Nails were debrided and greater than 50% length and thickness where needed. Unable to cut own toenails 932004663 Z74.1 secondary to dementia [id number] Maryjo Hastings MD [facility] Primary Care [facility] [address] [place] [address] 05/03/2023 11:05:24 05/03/2023 11:50:10 Adult health examination 836697991 Z00.00 Recheck labs next visit in 6 months. Recommende d routine eye exams and dental cleanings. Shingles vaccine- unknown per caretakerP neumonia vaccine- 06/28/2010 Flu vaccine- recommende d each fallTetanu s vaccine- 09/11/2020 Mammogram- will order diagnostic mammogram/ US next visit 10/2023 Screening for disorder 489102021 Z13.9 Diarrhea 00240807 R19.7 Has been chronic problem. Denies any abdominal pain. No blood in stools. No associated N/V.Advise d to make sure she is staying well hydrated. Can try food eliminatio n.If symptoms worsen or incontinen ce becomes problem will send to GI to evaluate further. [id number] Binu De Oliveira DPM [facility] [place] [address] [place] [address] 09/08/2023 11:50:24 09/21/2023 14:03:07 Dystrophia unguium 83445893 L60.3 Nails 1 through 10 were debrided with sharp mechanical debridemen t without incident. Nails were debrided and greater than 50% length and thickness where needed.fol low-up 3-4 months for routine foot care Bunion 347239624 M21.61 9 offloading to prevent wounds infectionC heck feet daily for wounds infectionR ight recommend wide athletic supportive tennis shoes with soft toe boxfollow- up in 3 months for routine foot care Unable to cut own toenails 601697074 Z74.1 secondary to dementia [id number] Maryjo Hastings MD [facility] Primary Care [facility] [address] [facility] [address] [place] [address] 11/01/2023 10:20:22 11/01/2023 11:03:58 Hypothyroidism 07333991 E03.9 Due for labs. Essential hypertension 43508674 I10 Stable. Continue to monitor. Cobalamin deficiency 190 023047 E53.8 Due for labs. Vitamin D deficiency 347 50090 E55.9 Due for labs. Hypertriglyceridemia 302 776992 E78.1 Due for labs. Only slightly elevated previously .Work on diet. [id number] Binu De Oliveira DPM [facility] [place] [address] [facility] [address] [place] [address] 05/01/2024 16:47:08 05/24/2024 15:00:27 Unable to cut own toenails 848421579 Z74.1 secondary to dementia Dystrophia unguium 56713 009 L60.3 Nails 1 through 10 were debrided with sharp mechanical debridemen t without incident. Nails were debrided and greater than 50% length and thickness where needed.fol low-up 3-4 months for routine foot care Moderate i ntellectual disability 90470377 F71 [id number] JUAN ANTONIO Mills-C [facility] Primary Care [address] [place] [address] 05/08/2024 10:19:07 05/08/2024 11:17:07 Adult health examination 389978333 Z00.00 Screening for disorder 561198693 Z13.9 Thyroid di sorder screening 067581069 Z13.29 Diabetes m ellitus screening 779230392 Z13.1 Hyperlipid emia screening 936004662 Z13.220 Anemia screening 6487709 07 Z13.0 [id number] T[address] VegaP-C [facility] Primary Care [address] [place] [address] 06/19/2024 10:45:42 06/19/2024 11:26:51 Swelling of bilateral lower limbs 383451086 M79.89 Will check labs as listed below. Diarrhea 03989250 R19.7 3-4 episodes daily[address] [id number] NIGEL Vega [facility] Primary Care [facility] [address] [facility] [address] [place] [address] 07/11/2024 15:19:23 07/11/2024 15:41:13 [id number] Binu De Oliveira DPM [facility] [place] [address] [place] [address] [address] [place] [address] 08/02/2024 11:34:44 08/22/2024 13:59:08 Dystrophia unguium 34994470 L60.3 Nails 1 through 10 were debrided with sharp mechanical debridemen t without incident. Nails were debrided and greater than 50% length and thickness where needed.fol low-up 3-4 months for routine foot care Unable to cut own toenails 973212449 Z74.1 secondary to dementia [id number] Kaylan Cassidy MD [facility] General Surgery [address], [address] [address] 09/19/2024 14:15:47 09/19/2024 14:58:32 Diarrhea 12727727 R19.7 [id number] [facility] General Surgery [address] [facility] [address], [address] [address] 10/31/2024 11:17:05 10/31/2024 11:43:54 Lymphocytic colitis 0959340493 K52.[id number] [facility] Primary Care [facility] [address] [facility] [address] [place] [address] 11/01/2024 10:19:51 11/01/2024 11:08:05 Lymphocytic colitis 8976049284 K52.832 started on new medication today that was prescribed by Danna follow up as needed. [id number] Kaylan Cassidy MD [facility] General Surgery [address] [address] 01/30/2025 11:11:43 01/30/2025 12:10:25 Lymphocytic colitis 6177270548 K52.[id number] [facility] General Surgery [address] [facility] [address] [place] [address] 03/20/2025 12:18:27 03/20/2025 12:51:11 Lymphocytic colitis 0004948059 K52.[id number] [facility] General Surgery [address] [facility] [address] [place] [address] 04/24/2025 12:36:52 04/24/2025 13:01:25 Lymphocytic colitis 6217091655 K52.832 Health Concerns Section Related Observation LastModified by Organization Detai ls LastModified Time None Recorded Concern Status LastModified by Organization Details LastModified Time None Recorded Advance Directives Directive None Recorded Payers Encounter Date Sequence Insurance Name Policy Number Policy Miles Covered Member ID Miles Member ID Guarantor Name 10/31/2024 1 [place] Moy Blount [id number] Moy Donald Jose Alejandro 10/31/2024 2 [place] MEDICARE REPLACEMENT PRIMARY) Moy Donald Jose Alejandro [id number] Moy Donald Jose Alejandro 11/01/2024 1 [place] Moy Blount [id number] Moy Donald Jose Alejandro 11/01/2024 2 [place]IC[place] REPLACEMENT PRIMARY) Moy Donald Jose Alejandro [id number] Moy Donald Jose Alejandro 01/30/2025 1 [place] Moy Whiteon [id number] Moy Donald Jose Alejandro 01/30/2025 2 [place]IC[place] REPLACEMENT PRIMARY) Moy Donald Jose Alejandro [id number] Moy Donald Jose Alejandro 03/20/2025 1 [place] Moy Whiteon [id number] Moy Donald Jose Alejandro 03/20/2025 2 [place] OR MEDICARE REPLACEMENT PRIMARY) Moy Blount [id number] oMy Blount 04/24/2025 1 [place] Moy Blount [id number] Moy Blount 04/24/2025 2 [place] OR [place]ICARE REPLACEMENT PRIMARY) Moy Blount [id number] Moy Blount Notes Date Note Type Note Provider Name and Address Organization Details Recorded Time 10/31/2024 text/html MOY WAS SEEN IN THE OFFICE TODAY FOR A F/U.PT C/O DIARRHEA . S/P COLONSCOPY WITH BX . PATHOLOGY IS C/W LYMPHOCYTIC COLITIS . PT SCHOOL NURSE REPORTS ACCIDENTS AT NIGHT . SHE IS AWAKENED EVERY 2 HRS TO POTTY. Kaylan Cassidy MD [address], [employer], [place], [address], [employer] 10/31/2024 12:52:15 11/01/2024 text/html Patient is an 84 year old female that presents to the office for follow up. Patient is a resident at [facility] and is accompanied by staff member. Staff member reports patient had a colonoscopy within the last two weeks and was diagnosed with lymphocytic colitis and was started on a new medication to help with the diarrhea. Staff member does not know the name of the new medication but believes it was started today. Staff member will contact office with medication name so medication list can be updated.Patient reports she is still having 5 episodes of diarrhea per day. Patient and staff member deny any other concerns at this time. JUAN ANTONIO Vega-Libby [address], [place], [address], [employer] 11/01/2024 11:27:17 01/30/2025 text/html MOY WAS SSEE N IN THE OFFICE TODAY FOR A F/U. PT HAS LYMPHOCYTIC COLITIS . SHE WAS RXED BUDESONIDE 3 MG , 3 TABS DAILY SINCE 10/2024. TODAY PT AND PROGRAM PROFESSIONAL SAYS SHE IS STILL GOING TO THE 6-7X DAILY . Kaylan Cassidy MD [address], [place], [address], [email or web address] [facility] [employer] [facility] 01/30/2025 13:33:03 03/20/2025 text/html MOY WAS SEEN IN THE OFFICE TODAY FOR A F/U OF HER LYMPHOCYTIC COLITIS . SHE IS ON BUDESONIDE 3MG , 3 TABD DAILY . PT IS STILL HAVING 3 BM DAILY . Kaylan Cassidy MD [address], [place], [address], [email or web address] [facility] [employer] [facility] 03/20/2025 13:09:55 04/24/2025 text/html MOY WAS SEEN IN THE OFFICE TODAY FOR A F/U PT HAS LYMPHOCYTIC COLITIS AND IS TAKING BUDESONIDE 3 MG , 3 TABS DAILY . PT WAS SEEN A MONTH AGO AND WAS HAVING 3 BMs DAILY . TODAY SHE REPORTS THAT 2 BMs daily . Kaylan Cassidy MD [address], [place], [address], [email or web address] [facility] [employer] [facility] 04/24/2025 13:02:54 OBGyn Episode No OBEpisode recorded.
--- OUTSIDE RECORDS SUMMARY | 2025-04-29 15:42 | XMS_ITS | CONTINUITY OF CARE DOCUMENT ---
Author Name dionisio nichole Address Unknown Organization [facility] Address [address] [place] [address] Phone [phone] Care Team Providers Care Hob Machine Operator Name Role Phone dionisio nichole Unavailable Unavailable INSURANCE PROVIDERS Payer name Policy type / Coverage type John red alliance party ID [facility] Medicaid 0 [id number] [place] [employer] Medicare [id number]
--- OUTSIDE RECORDS SUMMARY | 2025-04-29 15:42 | XMS_ITS | Clinical Summary ---
Author Organization [facility] Address [address] [place] [address] Care Team Providers Care Cooler Supervisor Name Role Phone Sandor Patel MD Primary Care Provider + Allergies No known active allergies Medications ziprasidone (GEODON) 60 mg capsule take 1 capsule (60MG) by oral route every day with food 0 01/15/20 13 Active Additional Information Patient not taking.Reported on 09/28/2017 traZODone (DESYREL) 50 mg tablet take 1 tablet (50MG) by oral route every bedtime after meals 0 01/15/20 13 Active Additional Information Patient not taking.Reported on 09/28/2017 LORazepam (ATIVAN) 0.5 mg tablet take 2 tablet (1MG) by oral route 2 times every day as needed 0 01/15/[address] (CYMBALTA) 60 mg capsule take 1 capsule (60MG) by oral route every day 0 01/15/20 13 Active bisacodyl (CORRECTIVE LAXATIVE) 5 mg tablet take 1 tablet (5MG) by oral route every day as needed for constipation 0 01/15/20 13 Active multivitamin with iron tablet 0 01/15/20 13 Active acetaminophen (TYLENOL) 325 mg tablet take 2 tablet (650MG) by oral route every 6 hours as needed 0 01/15/20 13 Active aluminum-magnesiu m hydroxide-simethi cone (MYLANTA MAXIMUM STRENGTH) 80-80-8 mg/mL suspension take 30 milliliter by oral route between meals and at bedtime as needed 0 01/15/20 13 Active Additional Information Patient not taking.Reported on 09/28/2017 ziprasidone (GEODON) 40 mg capsule take 1 capsule (40MG) by oral route every day with food 0 01/15/20 13 Active Additional Information Patient not taking.Reported on 09/28/2017 phenytoin ER (DILANTIN) 100 mg ER capsule take 2 Capsule (200MG) by oral route every day at 5 pm. 60 5 01/15/20 13 Active naproxen sodium 220 mg capsule take 1 Tablet by Oral route BID 0 0 07/16/20 13 Active bacitracin-neomyc in-polymyxin B (TRIPLE ANTIBIOTIC) ointment UAD 0 01/15/20 13 Active diphenhydrAMINE (diphenhydrAMINE) 25 mg capsule take 1 capsule (25MG) by oral route 3 times every day 0 01/15/20 13 Active LORazepam (ATIVAN) 0.5 mg tablet take 2 tablet (1MG) by oral route 2 times every day as needed 0 01/15/20 13 Active Additional Information Patient not taking.Reported on 09/28/2017 traZODone (DESYREL) 50 mg tablet take 1 tablet (50MG) by oral route every bedtime after meals 0 01/15/20 13 Active Additional Information Patient not taking.Reported on 09/28/2017 ziprasidone (GEODON) 40 mg capsule take 1 capsule (40MG) by oral route every day with food 0 01/15/20 13 Active Additional Information Patient not taking.Reported on 09/28/2017 ziprasidone (GEODON) 60 mg capsule take 1 capsule (60MG) by oral route every day with food 0 01/15/20 13 Active Additional Information Patient not taking.Reported on 09/28/2017 aluminum-magnesiu m hydroxide-simethi cone (MYLANTA MAXIMUM STRENGTH) 400-400-40 mg/5 mL suspension take 30 milliliter by oral route between meals and at bedtime as needed 0 01/15/20 13 Active Additional Information Patient not taking.Reported on 09/28/2017 guaiFENesin (ROBITUSSIN) 100 mg/5 mL syrup take 10 milliliter (200MG) by oral route every 4 hours as needed 0 01/15/20 13 Active busPIRone (BUSPAR) 10 mg tabletIndications :Generalized Anxiety Disorder Take 10 mg by mouth 2 (two) times a day. Active divalproex (DEPAKOTE SPRINKLE) 125 mg capsule Take 125 mg by mouth 2 (two) times a day. Active predniSONE (DELTASONE) 10 mg tablet Take 6 tabs (60mg) daily for 2 days, then take 5 tabs (50mg) daily for 2 days. Continue to decrease by 1 tab (10mg) every 2 days until gone. 42 tablet 06/30/20 17 Active hydrocortisone 1 % cream Apply topically to R arm bid 6a-9p 28.4 g 11 07/05/20 17 Active cyanocobalamin (Vitamin B-12) 100 mcg tabletIndications :Prevention of Vitamin B12 Deficiency 2 tablets by mouth every day 56 tablet 11 08/30/20 17 Active calcium carbonate (OYSTER SHELL CALCIUM 500) 1,250 MG (500 mg of elemental calcium) tablet Take 1 tablet (1,250 mg total) by mouth daily. 28 tablet 11 08/30/20 17 Active aspirin (ASPIRIN LOW DOSE) 81 mg tablet Take 1 tablet (81 mg total) by mouth daily. 28 tablet 11 08/30/20 17 Active wheat dextrin (BENEFIBER SUGAR FREE, DEXTRIN,) 3 gram/4 gram powder in packet packet Take by mouth 3 (three) times a day. Active donepezil (ARICEPT) 10 mg tablet Take 10 mg by mouth nightly. Active traZODone (DESYREL) 100 mg tablet Take 100 mg by mouth nightly. Active triamcinolone (KENALOG) 0.1 % lotion Apply topically 2 (two) times a day. Active aluminum & magnesium hydroxide-simethi cone-diphenhydram ine-lidocaine (MAGIC MOUTHWASH) suspension every 4 (four) hours as needed. Active loperamide (IMODIUM) 2 mg capsule Take 2 mg by mouth every 12 (twelve) hours as needed for diarrhea. Active bismuth subsalicylate (PEPTO BISMOL) 17.5 mg/mL suspension Take 15 mL by mouth every 6 (six) hours as needed for indigestion. Active clotrimazole 1 % cream Apply topically 2 (two) times a day. 30 g 3 10/07/20 17 Active valsartan (DIOVAN) 80 mg tablet Take 60 mg by mouth daily. Active memantine (NAMENDA) 5 mg tabletIndications :Moderate to Severe Alzheimer's Type Dementia Take 5 mg by mouth 2 (two) times a day. Active Active Problems Problem Noted Date Diagnosed Date Acute dermatitis 06/30/2017 Assessment & Plan (06/30/2017 1:21 PM CDT): Fbzv-oek-ilickmx antihistamines to take daily along with tapering corticosteroids take as prescribed with the 1st thing in the morning If symptoms worsen to improve with recommendation for a today in office, they were strongly advised to follow up in office she was in office today with caregiver. Otherwise follow up in office for next visit visit Dr. 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 Healthcare maintenance 06/24/2017 Medication management 06/24/2017 Primary osteoarthritis of both knees 06/24/2017 Varicose veins of both lower extremities 017 Bilateral bunions 06/24/2017 MR (mental retardation), moderate 06/24/2017 Immunizations Immunization Administration Dates Next Due Pneumococcal Polysaccharide PPV23 07/21/2010 Td, Unspecified 02/07/2008 Surgical History Surgery Date Site/Laterality Comments MASTECTOMY 1996 Mastectomy MASTECTOMY Mastectomy, right breast Medical History Medical History Date Comments Hx Other Medical schizophrenia Hx Other Medical encephalomalaci a Adiposity Obesity Seizure disorder (HCC) Seizure d isorder Disorder of thyroid Thyroid dise ase Hx Other Medical mental retardat ion Social History Tobacco Use Types Packs/Day Years Used Date Smoking Tobacco: Never Smokeless Tobacco: Never Alcohol Use Standard Drinks/Week Comments No 0 (1 standard drink = 0.6 oz pur e alcohol) Comments Unknown Sex and Gender Information Value Date Recorded Sex Assigned at Not on file Legal Sex Female 6:26 PM BUSINESS SUPPORT ADMINISTRATOR Gender Identity Not on file Sexual Orientation Not on file Obstetrics History Last Filed Vital Signs Vital Sign Reading Time Taken Comments Blood Pressure 128/74 01/06/2018 3:39 PM BUSINESS SUPPORT ADMINISTRATOR Pulse 68 01/06/2018 3:39 PM BUSINESS SUPPORT ADMINISTRATOR Temperature 37 C (98.6 F) 01/06/2018 9:07 AM BUSINESS SUPPORT ADMINISTRATOR Respiratory Rate 20 01/06/2018 3:39 PM BUSINESS SUPPORT ADMINISTRATOR Oxygen Saturation 98% 01/06/2018 3:39 PM BUSINESS SUPPORT ADMINISTRATOR Inhaled Oxygen Concentration - - Weight 68 kg (150 lb) 01/06/2018 9:07 AM BUSINESS SUPPORT ADMINISTRATOR Height 152.4 cm (5') 01/06/2018 9:07 AM BUSINESS SUPPORT ADMINISTRATOR Body Mass Index 29.29 01/06/2018 9:07 AM BUSINESS SUPPORT ADMINISTRATOR Plan of Treatment Not on file Insurance IDPA MEDICARE [facility] Address: [address] [address] [place] [address] Care Teams Cooler Supervisor Relationship Specialty Start Date End Date Sandor Patel MD [address] [place] [address] PCP - General 07/16/13
--- OUTSIDE RECORDS SUMMARY | 2025-04-29 15:42 | XMS_ITS | Clinical Summary ---
Author Organization [facility] Address [address] [facility] [place] [address] Phone Care Team Providers Care Web Analytics Specialist Name Role Phone Toni Emery MD Unavailable [phone] Piero Holcomb MD Primary Care Provider [phone] Allergies No known active allergies Medications acetaminophen (TYLENOL) 325 MG Tablet Active Aspirin 81 MG Tablet Active calcium carbonate (TUMS) 500 MG Chewable Tablet Acti ve calcium oyster shell 500 MG Tablet Active Cholecalciferol 2000 UNIT Capsule Ac tive docusate sodium (COLACE) 100 MG Capsule Active Multiple Vitamins-Minerals (EQ COMPLETE MULTIVITAMIN-ADUL T) Tablet Active guaiFENesin (ROBITUSSIN) 100 MG/5ML Liquid Active levothyroxine (SYNTHROID) 200 MCG TabletIndications :once a day Indications: once a day Active aluminum & magnesium hydroxide-simethi cone (MAALOX, MYLANTA) 200-200-20 MG/5ML Suspension Active Naproxen Sodium 220 MG Capsule Activ e Bismuth Subsalicylate 262 MG Tablet Active traZODone (DESYREL) 50 MG Tablet Active DULoxetine (CYMBALTA) [address] Particles Take 60 mg by mouth daily. Active vitamin b-12 (CYANOCOBALAMIN) 100 MCG Tablet Take 100 mcg by mouth 2 times daily. Active metroNIDAZOLE (FLAGYL) 500 MG Tablet Take 1 Tab by mouth 3 times daily. 30 Tab 0 7 Active Additional Information Patient not taking.Reported on 02/26/2025 loperamide (IMODIUM A-D) 2 MG Capsule Take 1 Cap by mouth as needed for Diarrhea. 30 Cap 0 7 Active busPIRone (BUSPAR) 10 MG Tablet Take 10 mg by mouth 3 times daily. Active divalproex (DEPAKOTE) 125 MG Tablet Delayed ResponseIndicatio ns:take 2 capsules by mouth every morning and bedtime Take 125 mg by mouth 2 times daily. Active rivastigmine (EXELON) 4.6 MG/24HR PATCH 24 HR 1 Patch by Transdermal route daily. Active irbesartan (AVAPRO) 150 MG Tablet Take 150 mg by mouth nightly. Active potassium chloride SA (KLORCON M) 20 MEQ Tablet Controlled Release Take 20 mEq by mouth daily. Active cephALEXin (KEFLEX) 500 MG Capsule Take 500 mg by mouth 2 times daily. Active Cetirizine HCl (ZYRTEC PO) Take by mouth. Act herberth furosemide (LASIX) 40 MG Tablet Take 40 mg by mouth daily. Active Cyanocobalamin (B-12 PO) Take by mouth. Activ e memantine (NAMENDA) 10 MG Tablet Take 1 Tablet by mouth 2 times daily. 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 [address] [place] [address] Toni Emery MD Convulsive generalized seizure disorder (HCC) (Primary Dx); Moderate dementia, unspecified dementia type, unspecified whether behavioral, psychotic, or mood disturbance or anxiety (HCC) Discharge Disposition: Discharged to home or Selfcare 02/26/2025 Travel from Last 3 Months Immunizations Immunization Administration Dates Next Due Influenza Vaccine greater than 3 yrs 11/28/2012 Influenza Vaccine, Quadrivalent, PF 07/30,09/09/2022,09/02/2021,2017,09/22/2017 Influenza, Injectable, Mdck,quadrivalent,with Preservative 09/06/2019 Influenza, Quadrivalent, Adjuvanted 09/11/2020 Influenza,Split Virus,Trivalent,Injectable,PF 08/24/2024 Pneumococcal Vaccine - 13 Valent 09/11/2020 Pneumococcal Vaccine Adult - 23 Valent 06/28/2010 TD VACCINE 01/27/2008 Family History Relation Name Status Comments Father Mother Social History Tobacco Use Types Packs/Day Years Used Date Smoking Tobacco: Never Smokeless Tobacco: Never Tobacco Cessation:Counseling Given: Not Answered Alcohol Use Standard Drinks/Week Comments No 0 (1 standard drink = 0.6 oz pur e alcohol) Sexually Active Control Partners Comments Not Currently Comments No Sex and Gender Information Value Date Recorded Sex Assigned at Not on file Legal Sex Female 7:37 PM CDT Gender Identity Not on file Sexual Orientation Not on file Last Filed Vital Signs Vital Sign Reading Time Taken Comments Blood Pressure 110/72 02/26/2025 10:22 AM CDT Pulse 61 02/26/2025 10:22 AM CDT Temperature 36.3 C (97.3 F) 02/26/2025 10:22 AM CDT Respiratory Rate 16 02/26/2025 10:22 AM CDT Oxygen Saturation 97% 02/26/2025 10:22 AM CDT Inhaled Oxygen Concentration - - Weight 91.4 kg (201 lb 9.6 oz) 02/26/2025 10:22 AM CDT Height 154.9 cm (5' 1) 02/26/2025 10:22 AM CDT Body Mass Index 38.09 02/26/2025 10:22 AM CDT Plan of Treatment Upcoming Encounters Date Type Department Care Team (Late st Contact Info) Description 02/25/2026 9:30 AM CDT Office Visit [facility] - Neurology [facility] [address] [place] [phone] Toni Emery MD [address] [place] [phone] Health Maintenance Due Date Last Done Comments DEXA Bone Density 1940 Hepatitis C Virus (HCV) Screening 1940 Zoster Immunization (1 of 2) 1992 Respiratory Syncytial Virus (RSV) Immunization (Adult) (1 - 1-dose 75+ series) 2017 SARS-COV-2 Immunization ( season) 2025 08/24/2024, 11/02/2023, 09/09/2022, Additional history exists DTaP/Tdap/Td Immunization Discontinued 2019, 02/07/2008, 01/27/2008 Pneumococcal Immunization (50+ years) Completed 09/11/2020, 07/21/2010, 06/28/2010 Pneumococcal Immunization Combined Discontinued 09/11/2020, 07/21/2010, 06/28/2010 TdaP Immunization Completed 09/11/2020 Influenza Immunization Completed , 08/19/2023, 09/09/2022, Additional history exists Hepatitis B Immunization Aged Out No longer eligible based on patient's age to complete this topic Meningococcal Immunization (ACWY) Aged Out No longer eligible based on patient's age to complete this topic Rotavirus Immunization Aged Out No lo nger eligible based on patient's age to complete this topic Insurance MEDICARE MEDICAID [place] Care Teams Web Analytics Specialist Relationship Specialty Start Date End Date Piero Holcomb MD [address] [place] [phone] PCP - General Family Medicine 07/09/16 Toni Emery MD [address] [place] [address] Consulting Physician Neurology 10/20/15
--- OUTSIDE RECORDS SUMMARY | 2025-04-29 15:42 | XMS_ITS | Referral Summary ---
Author Organization [facility] Address [address] [place] [address] Care Team Providers Care Content Administrator Name Role Phone Sandor Patel MD Primary [...] Assessment & Plan (06/30/2017 1:21 PM CDT): Twsw-qia-[id number] antihistamines to take daily along with tapering [...] Pneumococcal Polysaccharide PPV23 07/21/2010 Td, Unspecified 02/07/2008 Social History Tobacco Use Types Packs/Day Years Used Date Smoking Tobacco: Never Smokeless Tobacco: Never Alcohol Use Standard Drinks/Week Comments No 0 (1 standard drink = 0.6 oz pur e alcohol) Comments Unknown Sex and Gender Information Value Date Recorded Sex Assigned at Not on file Legal Sex Female 6:26 PM STONE RIGGER Gender Identity Not on file Sexual Orientation Not on file Last Filed Vital Signs Vital Sign Reading Time Taken Comments Blood Pressure 128/74 01/06/2018 3:39 PM STONE RIGGER Pulse 68 01/06/2018 3:39 PM STONE RIGGER Temperature 37 C (98.6 F) 01/06/2018 9:07 AM STONE RIGGER Respiratory Rate 20 01/06/2018 3:39 PM STONE RIGGER Oxygen Saturation 98% 01/06/2018 3:39 PM STONE RIGGER Inhaled Oxygen Concentration - - Weight 68 kg (150 lb) 01/06/2018 9:07 AM STONE RIGGER Height 152.4 cm (5') 01/06/2018 9:07 AM STONE RIGGER Body Mass Index 29.29 01/06/2018 9:07 AM STONE RIGGER Plan of Treatment Not on file Insurance IDPA MEDICARE [facility] Address: [address] [address] [place] [address] Care Teams Content Administrator Relationship Specialty Start Date End Date Sandor Patel MD [address] [place] [address] PCP - General 07/16/13
--- OUTSIDE RECORDS SUMMARY | 2025-04-29 15:42 | XMS_ITS | Continuity of Care Document ---
Author Organization [facility] Address [address] [address] [place] [address] Phone Care Team Providers Care Triage Technician Name Role Phone Matthews OD, Stephen Unavailable Unavailable Procedures Procedure Date Eye Exam & Treatment Refraction Eye Exam & Treatment Optic Nerve Head Eval Refraction Eye Exam & Treatment Office/outpatient Visit, Est Advance Directives Directive Yes / No Effective Date File Name No Information Encounters Encounter Description Practice Location Reason(s) For Visit Diagnoses Date Provider Providers Copied on Encounter [facility], [address] [place] [address] [address], [place], [place], [id number], [place] tel:[phone] [facility] No Information Apr- 2-201 0 Matthews OD Stephen. [address] , [address], [place], [address], [place]. tel:[phone] [facility], [address] [place] [address] [address], [place], [place], [id number], [place] tel:[phone] [facility] No Information 0-200 9 Matthews OD Stephen. [address], [place], [address], [place]. tel:[phone] [facility], [address], [place], [place], [id number], tel:[phone] [facility] No Information March-1 4-200 8 Matthews OD Stephen. [address] [facility] , [address], [place], [address], [place]. tel:[phone] Office/outpat ient Visit, [facility], [address], [place], [place], [id number], [place] tel:[phone] [facility] No Information March-0 9-200 7 Matthews OD Stephen. [address] [facility] , [address], [place], [address], [place]. tel:[phone] Family History Family Member Type Diagnosis Age At Onset No Information Payers Payer name Insurance type Covered green party ID Authoriza timaribell(s) Medicare [facility] [id number] Medicaid [place] [id number] Social History Type Description Quantity Date Captured Comments Sex Female Smoking Status No Information Chief Complaint And Reason For Visit No Information Reason For Referral Reason For Referral No Information History Of Present Illness Encounter Date Complaint History Of Prese nt Illness No Information Functional Status Date Functional Assessmen t No Information Instructions Date Instruction Additional Infor mation No Information Assessments Type Assessment Date No Information Patient Care Teams Name Effective Dates (start - stop) Status Members No Information
[2025-04-29 15:51] VITALS: BP 139/54; PULSE 70; RESP 17; TEMP 36.6; O2SAT 99
--- NOTE | 2025-04-29 17:11 | ECG_ITS ---
Test Date: 2025-04-29 17:24:30 Measurements Intervals [place] Rate: 61 P: 40 MA: 181 QRS: 59 QRSD: 89 T: 62 QT: 386 QTc: 391 Interpretive Statements SINUS RHYTHM NONSPECIFIC ST & T-WAVE ABNORMALITY- DIFFUSE LEADS BASELINE ARTIFACT- I, II, III, AVR, AVL, AVF, V1-V4 BORDERLINE ECG No previous ECG available for comparison Electronically Signed On 04-29-2025 20:45:42 CDT by Romario Shahid D.O.
--- NOTE | 2025-04-29 17:43 | ED_ITS ---
HPI - Head Injury General Chief complaint: Head Injury Stated complaint: Head injury-fall yesterday Time Seen by Provider: 04/29/25 16:56 Source: patient and family Mode of arrival: ambulatory Limitations: dementia History of Present Illness HPI Narrative: Patient is an 85-year-old female, with PMH of dementia, schizophrenia, seizure disorder, who presents the ED with report of a fall. Patient lives in a alf in [place], [place]. She reports she fell yesterday. Unsure how the fall occurred. She thinks she lost balance. Family member at bedside states fall was unwitnessed. Patient did hit her head. Has some bruising around her L periorbital region. Unsure of LOC. Patient takes aspirin 81 mg daily. No other blood thinners. Patient denies any other areas of pain. Denies chest pain, neck pain, back pain, abdominal pain, hip pain. Related Data Home Medications ?Medication ?Instructions ?Recorded ?Confirmed ?Last Taken ?Type Adult Low Dose Aspirin 81 mg PO DAILY 02/14/20 02/14/20 Unknown History Oyster Shell Calcium 500 500 mg PO DAILY 02/14/20 02/14/20 Unknown History aluminum-mag hydroxide-simethicone 30 ml PO Q6H PRN Indigestion 02/14/20 02/14/20 Unknown History 200 mg-200 mg-20 mg/5 mL oral susp (Almacone) bisacodyl 5 mg tablet,delayed 5 mg PO PRN PRN Constipation 02/14/20 02/14/20 Unknown History release bismuth subsalicylate 262 mg/15 mL 524 mg PO QID PRN Loose Stool 02/14/20 02/14/20 Unknown History oral suspension (Bismatrol) buspirone 10 mg tablet 10 mg PO BID 02/14/20 02/14/20 Unknown History calcium carbonate (Oyster Shell 500 mg PO DAILY 02/14/20 02/14/20 Unknown History Calcium 500) cetirizine 10 mg PO DAILY 02/14/20 02/14/20 Unknown History cyanocobalamin (vitamin B-12) 100 100 mcg PO DAILY 02/14/20 02/14/20 Unknown History mcg tablet (Vitamin B-12) diphenhydramine HCl 25 mg capsule 25 mg PO Q6H PRN Allergy Symptoms 02/14/20 02/14/20 Unknown History (Benadryl) divalproex 125 mg capsule,delayed 125 mg PO BID 02/14/20 02/14/20 Unknown History release sprinkle duloxetine 60 mg capsule,delayed 60 mg PO DAILY 02/14/20 02/14/20 Unknown History release guaifenesin 100 mg/5 mL oral 200 mg PO Q4H PRN Cough 02/14/20 02/14/20 Unknown History liquid (Robafen) irbesartan 150 mg tablet 150 mg PO DAILY 02/14/20 02/14/20 Unknown History levothyroxine 112 mcg tablet 112 mcg PO DIRECTED 02/14/20 02/14/20 Unknown History loperamide 2 mg capsule 2 mg PO Q2-4H PRN Diarrhea 02/14/20 02/14/20 Unknown History memantine 5 mg tablet 5 mg PO BID 02/14/20 02/14/20 Unknown History potassium chloride 20 mEq 20 meq PO BID 02/14/20 02/14/20 Unknown History tablet,extended release(part/cryst) rivastigmine 9.5 mg/24 hour 9.5 mg transdermal DAILY 02/14/20 02/14/20 Unknown History transdermal patch (Exelon Patch) trazodone 100 mg tablet 100 mg PO HS 02/14/20 02/14/20 Unknown History wheat dextrin 3 gram/3.5 gram oral 3 g PO DAILY 02/14/20 02/14/20 Unknown History powder packet (Benefiber Clear Sugar Free(dextrin)) Allergies Allergy/AdvReac Type Severity Reaction Status Date / Time No Known Allergies Allergy Verified 04/29/25 16:33 Review of Systems 2 Review of Systems: All systems reviewed & are unremarkable except as noted in HPI. All systems reviewed & are unremarkable except as noted in HPI and below PMFSH Past Medical History Medical History Dementia Seizure disorder Breast cancer Schizophrenia Hypothyroid Post-menopausal HTN (hypertension) Surgical History Surgical History History of mastectomy Right Social History Social History Social History: Resides in a alf. She is a grey of the pending sale to [facility] and full code status. Smoking status: Unknown if ever smoked Alcohol intake: unknown Substance use: unknown Occupation/Education: retired Additional occupation/education comments: Disabled due to psychological condition Gender identity (if verbalized by the patient): Female Exam 2 Narrative: GENERAL: Elderly, well-nourished, non-toxic, in no acute distress. HEAD: Normocephalic, atraumatic. EYES: PERRL/EOMI, conjunctiva clear. No pain with EOM. Small amount of bruising to L inferior/lateral periorbital region into L maxillary region. Minimal swelling NECK: Supple, normal range of motion. No midline cervical spinal tenderness. RESPIRATORY: Airway patent, respirations nonlabored. Clear to auscultation bilaterally, no rales, rhonchi, wheezing. No focal lung sounds CARDIOVASCULAR: Regular rate and rhythm without murmurs, rubs, or gallops. ABDOMINAL: Soft, nontender, nondistended. Normoactive BS. MUSCULOSKELETAL: Moves all extremities. No gross deformities. No midline thoracic or lumbar spinal tenderness. No palpable bony deformities or step offs. SKIN: Warm, dry, normal color. NEURO: Alert, intermittently confused. Speech clear. Cranial nerves II-XII grossly intact. No ataxic movements. No focal deficits. PSYCHIATRIC: Appropriate mood and affect. Normal interaction. Course Vital Signs Vital signs: Vital Signs Temperature 97.8 F 04/29/25 15:51 Pulse Rate 70 04/29/25 15:51 Respiratory Rate 17 04/29/25 15:51 Blood Pressure 139/54 L 04/29/25 15:51 Pulse Oximetry 99 04/29/25 15:51 Oxygen Delivery Room Air 04/29/25 15:51 Temperature 97.8 F 04/29/25 15:51 Pulse Rate 61 04/29/25 19:15 Respiratory Rate 20 04/29/25 18:15 Blood Pressure 145/58 H 04/29/25 19:15 Pulse Oximetry 95 04/29/25 19:15 Oxygen Delivery Room Air 04/29/25 15:51 MDM - Head Injury MDM Narrative Medical decision making narrative: Patient presented to ED status post fall yesterday, head injury. Unsure of LOC. Unsure of mechanism of fall. History of dementia. Vital signs are stable upon arrival. Patient is neurologically intact. EKG without concerning ST changes. Troponin undetectable. Basic laboratory studies are grossly unremarkable. UA without signs of infection CT brain and cervical spine without traumatic findings. CT of facial bones did show: Small nondisplaced fracture of the left anterior and inferior maxillary bone, to the left of the maxillary spine. On exam, patient does have a very small amount of bruising/swelling to left maxillary region. She denies significant pain in this region. No crepitus. Extraocular movements are intact. No pain with eye movements. No evidence of entrapment. Discussed case with Dr. Arzola, ENT, reviewed images himself. Advised no intervention needed. Recommend f/u in office in 7-10 days for repeat eval. Discussed these findings with patient and caregiver at bedside. Discussed strict return precautions. They are in agreement with plan. D/C in stable condition. Medical Records Attestation: I reviewed the patient's medical records. Lab Data Attestation: I reviewed the patient's lab results. 04/29/25 17:38 04/29/25 17:38 Labs: Lab Results 04/29/25 04/29/25 Range/Units 17:38 18:38 WBC 12.1 H (4.5-10.0) K/mm3 RBC 3.76 L (4.2-5.4) M/mm3 Hgb 11.6 L (12.0-15.0) g/dL Hct 37.0 (37.0-47.0) % MCV 98.4 (80-100) fl MCH 30.9 (26-34) pg MCHC 31.4 L (32-36) g/dl RDW 13.7 (11.5-14.5) % Plt Count 283 (150-375) k/mm3 MPV 10.2 (7.4-10.4) fl Immature Gran % (Auto) 0.5 (0-0.5) % Neut % (Auto) 63.7 (45.5-73.1) % Lymph % (Auto) 22.4 (18.3-44.2) % [place] % (Auto) 11.4 H (2.6-8.5) % Eos % (Auto) 1.4 (0-4.4) % Baso % (Auto) 0.6 (0.2-1.2) % Lymph # (Auto) 2.72 (0.9-3.2) K/mm3 [place] # (Auto) 1.4 H (0.1-0.6) K/mm3 Eos # (Auto) 0.2 (0-0.3) K/mm3 Baso # (Auto) 0.1 (0.0-0.1) K/mm3 Abs Immat Gran (auto) 0.06 H (0.00-0.031) K/mm3 Absolute Neuts (auto) 7.7 H (1.3-6.7) K/mm3 Absolute Nucleated RBC 0.000 (0.0-0.012) K/mm3 Nucleated RBC % 0.0 (0.0-0.2) % PT 13.7 (11.1-14.7) Seconds INR 1.0 APTT 33.2 (22.3-36.8) Seconds Sodium 139 (137-145) mmol/L Potassium 4.6 (3.4-5.0) mmol/L Chloride 102 (98-107) mmol/L Carbon Dioxide 32 H (22-30) mmol/L Anion Gap 5 (4-12) mmol/L BUN 24 H (7-17) mg/dL Creatinine 0.85 (0.7-1.0) mg/dL Estim Creat Clear Calc Not Reportable Estimated GFR > 60 (59 - ) Glucose 93 (65-110) mg/dL Calcium 9.2 (8.4-10.2) mg/dL Total Bilirubin 0.4 (0.2-1.3) mg/dL AST 37 H (14-36) U/L ALT 21 (6-35) U/L Alkaline Phosphatase 95 (38-126) U/L Troponin I < 0.012 (0.000-0.034) ng/mL Total Protein 7.0 (6.3-8.2) g/dL Albumin 3.8 (3.5-5.1) g/dL Urine Color Yellow (Yellow) Urine Appearance Clear (Clear) Urine pH 6.5 (5.0-9.0) Ur Specific [place] 1.009 (1.001-1.035) Urine Protein Negative (Negative) mg/dL Urine Glucose (UA) Negative (Negative) mg/dL Urine Ketones Negative (Negative) mg/dL Ur Blood (Man) Trace (Negative) Urine Nitrate Negative (Negative) Urine Bilirubin Negative (Negative) Urine Urobilinogen 0.2 (<2.0) mg/dL Leukocyte Esterase Rfl Negative (Negative) DELANO/UL Urine RBC 3-5 H (0-2) /hpf Urine WBC 0-5 (0-3) /hpf Ur Squamous Epith Cells None seen (Few) /hpf Urine Bacteria None seen /hpf Urine Casts 0-2 Imaging Data Attestation: I personally reviewed and interpreted this imaging study as follows: Radiologist's impression: ITS Impressions Head CT 04/29/25 18:01 IMPRESSION: No acute intracranial process. Head/Cervical Spine/Facial Bones CT 04/29/25 18:04 IMPRESSION: No acute fracture or traumatic malalignment in the cervical spine. Small nondisplaced fracture of the left anterior and inferior maxillary bone, to the left of the maxillary spine. Chest X-Ray 04/29/25 18:14 IMPRESSION: Pulmonary findings may represent mild edema. Right basilar subsegmental atelectasis/consolidation. ECG Data EKG #1: Attestation: I personally reviewed and interpreted this ECG as follows: ECG completion date: 04/29/25 ECG completion time: 17:24 EKG Interpretation: normal rate (61), sinus rhythm and non-specific ST changes Discharge Plan Discharge Clinical Impression: Fall from ground level Fracture of left side of maxilla Qualifiers: Encounter type: initial encounter Fracture type: closed Qualified Code(s): S 02.40DA - Maxillary fracture, left side, initial encounter for closed fracture Closed head injury Qualifiers: Encounter type: initial encounter Qualified Code(s): S09.90XA - Unspecified injury of head, initial encounter Patient Disposition: [facility] Living Condition: Stable Instructions: Antibiotic Form, Facial Fracture (ED), Head Injury (ED) Additional Instructions: Patient's imaging showed a small nondisplaced fracture of her left maxillary bone. Recommend follow-up with ENT for this within the next 7-10 days. Call office tomorrow to make appointment. Recommend Tylenol as needed for pain, ice to face. Avoid rubbing/blowing nose. Return to the ED for new or worsening concerns, vision changes, pain with eye movements, recurrent fall or injuries, or any other symptoms of concern. Patient Language: Israeli Prescriptions: No Action Adult Low Dose Aspirin 81 mg PO DAILY potassium chloride 20 mEq tablet,ER particles/crystals 20 meq PO BID trazodone 100 mg tablet 100 mg PO HS buspirone 10 mg tablet 10 mg PO BID irbesartan 150 mg tablet 150 mg PO DAILY divalproex 125 mg capsule, delayed rel sprinkle 125 mg PO BID levothyroxine 112 mcg tablet 112 mcg PO DIRECTED memantine 5 mg tablet 5 mg PO BID rivastigmine [Exelon Patch] 9.5 mg/24 hr patch 24 hour 9.5 mg transdermal DAILY cetirizine 10 mg PO DAILY duloxetine 60 mg Capsule,Delayed Release(Dr/Ec) 60 mg PO DAILY cyanocobalamin (vitamin B-12) [Vitamin B-12] 100 mcg Tablet 100 mcg PO DAILY calcium carbonate [Oyster Shell Calcium 500] 500 mg calcium (1,250 mg) Tablet 500 mg PO DAILY bismuth subsalicylate [Bismatrol] 262 mg/15 mL Suspension 524 mg PO QID PRN (Reason: Loose Stool) bisacodyl 5 mg Tablet,Delayed Release (Dr/Ec) 5 mg PO PRN PRN (Reason: Constipation) alum-mag hydroxide-simeth [Almacone] 200-200-20 mg/5 mL Suspension 30 ml PO Q6H PRN (Reason: Indigestion) Benefiber Clear SF (dextrin) 3 gram/3.5 gram Powder In Packet 3 g PO DAILY Oyster Shell Calcium 500 500 mg PO DAILY loperamide 2 mg Capsule 2 mg PO Q2-4H PRN (Reason: Diarrhea) guaifenesin [Robafen] 100 mg/5 mL Liquid 200 mg PO Q4H PRN (Reason: Cough) diphenhydramine HCl [Benadryl] 25 mg Capsule 25 mg PO Q6H PRN (Reason: Allergy Symptoms) Follow-up/Referrals: Jo Ann Arzola MD [Physician] - (ENT) Potter,Ulises Elizalde APRN [Primary Care Provider] - Time of Disposition: 20:07
[2025-04-29 17:46] LABS: Basophils Absolute Auto 0.1 K/mm3 (0.0-0.1); Basophils Percent Auto 0.6 % (0.2-1.2); Eosinophils Absolute Auto 0.2 K/mm3 (0-0.3); Eosinophils Percent Auto 1.4 % (0-4.4); Hemoglobin 11.6 g/dL (12.0-15.0); Immature Granulocyte Absolute 0.06 K/mm3 (0.00-0.031); Immature Granulocyte Percent A 0.5 % (0-0.5); Lymphocytes Absolute Auto 2.72 K/mm3 (0.9-3.2); Lymphocytes Percent Auto 22.4 % (18.3-44.2); Mean Corpuscular HGB Conc 31.4 g/dl (32-36); Mean Corpuscular Hemoglobin 30.9 pg (26-34); Mean Corpuscular Volume 98.4 fl (80-100); Mean Platelet Volume 10.2 fl (7.4-10.4); Monocytes Absolute Auto 1.4 K/mm3 (0.1-0.6); Monocytes Percent Auto 11.4 % (2.6-8.5); Neutrophils Absolute Auto 7.7 K/mm3 (1.3-6.7); Neutrophils Percent Auto 63.7 % (45.5-73.1); Platelet Count Result 283 k/mm3 (150-375); Red Blood Count 3.76 M/mm3 (4.2-5.4); Red Cell Distribution Width 13.7 % (11.5-14.5); White Blood Count 12.1 K/mm3 (4.5-10.0)
[2025-04-29 17:58] LABS: Alanine Aminotransferase 21 U/L (6-35); Albumin Level 3.8 g/dL (3.5-5.1); Alkaline Phosphatase 95 U/L (38-126); Anion Gap 5 mmol/L (4-12); Aspartate Amino Transferase 37 U/L (14-36); Bilirubin,Total 0.4 mg/dL (0.2-1.3); Blood Urea Nitrogen 24 mg/dL (7-17); Calcium 9.2 mg/dL (8.4-10.2); Carbon Dioxide 32 mmol/L (22-30); Chloride 102 mmol/L (98-107); Estimated Glomerular Filt Rate > 60; Glucose 93 mg/dL (65-110); Potassium 4.6 mmol/L (3.4-5.0); Sodium 139 mmol/L (137-145)
[2025-04-29 18:08] LABS: Prothrombin Time 13.7 Seconds (11.1-14.7)
--- OUTSIDE RECORDS SUMMARY | 2025-04-29 18:08 | XMS_ITS | Clinical Summary ---
Author Organization [facility] Address [address] [place] [address] Phone Care Team Providers Care Forepart Laster Name Role Phone Toni Emery MD Unavailable [phone] Piero Holcomb MD Primary Care Provider [phone] Allergies No known active allergies Medications acetaminophen [...] Description 02/26/2025 10:15 AM CDT Office Visit [facility] - Neurology [facility] [address] [place] [address] Toni Emery MD Convulsive generalized [...] [facility] - Neurology [facility] [address] [place] [id number] Toni Emery MD [address] [place] [id number] Health Maintenance Due Date Last Done Comments [...] topic Insurance MEDICARE [place]ICAID [place] Care Teams Forepart Laster Relationship Specialty Start Date End Date Piero Holcomb MD [address] [place] [id number] PCP - General Family Medicine 07/09/16 Toni Emery MD [address] [place] [address] Consulting Physician Neurology 10/20/15
--- OUTSIDE RECORDS SUMMARY | 2025-04-29 18:08 | XMS_ITS | Continuity of Care Document ---
Author Organization [facility] Address [address] [place] [address] Phone Care Team Providers Care Rubber Attacher Name Role Phone Matthews OD, Stephen Unavailable Unavailable Procedures Procedure Date Eye Exam & Treatment Refraction Eye Exam & Treatment Optic Nerve Head Eval Refraction Eye Exam & Treatment Office/outpatient Visit, Est Advance Directives Directive Yes / No Effective Date File Name No Information Encounters Encounter Description Practice Location Reason(s) For Visit Diagnoses Date Provider Providers Copied on Encounter [facility], [address] [place] [address] [address], [place], [place], [id number], [place] tel:[phone] [facility] No Information Apr- 2-201 0 Matthews OD Stephen. [address] , [address], [place], [address], [place]. tel:[phone] [facility], [address] [place] [address] [address], [place], [place], [id number], [place] tel:[phone] [facility] No Information 0-200 9 Matthews OD Stephen. [address], [place], [address], [place]. tel:[phone] [facility], [address], [place], [place], [id number], tel:[phone] [facility] No Information March-1 4-200 8 Matthews OD Stephen. [address] , [address], [place], [address], [place]. tel:[phone] Office/outpat ient Visit, [facility], [address], [place], [place], [id number], [place] tel:[phone] [facility] No Information March-0 9-200 7 Matthews OD Stephen. [address] [facility] , [address], [place], [address], [place]. tel:[phone] Family History Family Member Type Diagnosis Age At Onset No Information Payers Payer name Insurance type Covered green party ID Authoriza timaribell(s) Medicare [facility] [id number] Medicaid [place] [id number] Social History Type Description Quantity Date Captured [...]
--- OUTSIDE RECORDS SUMMARY | 2025-04-29 18:08 | XMS_ITS | Referral Summary ---
Author Organization [facility] Address [address] [place] [id number] Care Team Providers Care Saxophone Player Name Role Phone Sandor Patel MD Primary [...] Assessment & Plan (06/30/2017 1:21 PM CDT): Kpop-ndb-zexgvjz antihistamines to take daily along with tapering [...] on file Legal Sex Female 6:26 PM BEEF GRADER Gender Identity Not on file Sexual Orientation Not on file Last Filed Vital Signs Vital Sign Reading Time Taken Comments Blood Pressure 128/74 01/06/2018 3:39 PM BEEF GRADER Pulse 68 01/06/2018 3:39 PM BEEF GRADER Temperature 37 C (98.6 F) 01/06/2018 9:07 AM BEEF GRADER Respiratory Rate 20 01/06/2018 3:39 PM BEEF GRADER Oxygen Saturation 98% 01/06/2018 3:39 PM BEEF GRADER Inhaled Oxygen Concentration - - Weight 68 kg (150 lb) 01/06/2018 9:07 AM BEEF GRADER Height 152.4 cm (5') 01/06/2018 9:07 AM BEEF GRADER Body Mass Index 29.29 01/06/2018 9:07 AM BEEF GRADER Plan of Treatment Not on file Insurance IDPA MEDICARE [facility] Address: [address] [place] [address] Care Teams Saxophone Player Relationship Specialty Start Date End Date Sandor Patel MD [address] [place] [address] PCP - General 07/16/13
--- OUTSIDE RECORDS SUMMARY | 2025-04-29 18:08 | XMS_ITS | CONTINUITY OF CARE DOCUMENT ---
Author Name dionisio nichole Address Unknown Organization [facility] Address [address] [place] [address] Phone [phone] Care Team Providers Care Metal Template Maker Name Role Phone dionisio nichole Unavailable Unavailable INSURANCE PROVIDERS Payer name Policy type / Coverage type John red republican ID [employer] FAMILY SERVICES Medicaid 0 [id number] [place] MED[place] Medicare [id number]
--- OUTSIDE RECORDS SUMMARY | 2025-04-29 18:08 | XMS_ITS | Clinical Summary ---
Author Organization [facility] Address [address] [place] [phone] Care Team Providers Care Foot Drill Operator Name Role Phone Sandor Patel MD Primary [...] Assessment & Plan (06/30/2017 1:21 PM CDT): Hkli-akq-zaprytb antihistamines to take daily along with tapering [...] on file Legal Sex Female 6:26 PM OFFICE MOVER Gender Identity Not on file Sexual Orientation Not on file Obstetrics History Last Filed Vital Signs Vital Sign Reading Time Taken Comments Blood Pressure 128/74 01/06/2018 3:39 PM OFFICE MOVER Pulse 68 01/06/2018 3:39 PM OFFICE MOVER Temperature 37 C (98.6 F) 01/06/2018 9:07 AM OFFICE MOVER Respiratory Rate 20 01/06/2018 3:39 PM OFFICE MOVER Oxygen Saturation 98% 01/06/2018 3:39 PM OFFICE MOVER Inhaled Oxygen Concentration - - Weight 68 kg (150 lb) 01/06/2018 9:07 AM OFFICE MOVER Height 152.4 cm (5') 01/06/2018 9:07 AM OFFICE MOVER Body Mass Index 29.29 01/06/2018 9:07 AM OFFICE MOVER Plan of Treatment Not on file Insurance IDPA MEDICARE Care Teams Foot Drill Operator Relationship Specialty Start Date End Date Sandor Patel MD [address] [place] [address] PCP - General 07/16/13
[2025-04-29 18:09] LABS: Partial Thromboplastin Time 33.2 Seconds (22.3-36.8)
[2025-04-29 18:10] LABS: Troponin I < 0.012 ng/mL (0.000-0.034)
[2025-04-29 18:15] VITALS: BP 153/75; PULSE 64; RESP 20; O2SAT 98
[2025-04-29 19:11] LABS: Add Urine Microscopic? YES; Appearance Urine Clear (Clear); Bacteria Urine None Seen /hpf; Bilirubin Urine Negative (Negative); Blood Urine Trace (Negative); Color Urine Yellow (Yellow); Glucose Urine UA Negative (Negative); Ketones Urine Negative (Negative); Leukocyte Esterase Ur Negative LEU/UL (Negative); Nitrate Urine Negative (Negative); Non Pathogenic Casts 0-2; Protein Urine Negative (Negative); Specific Grav Ur 1.009 (1.001-1.035); Squamous Epithelial Cell Urine None Seen /hpf (Few); Urobilinogen Urine 0.2 mg/dL (<2.0); WBC Urine 0-5 /hpf (0-3); pH Urine 6.5 (5.0-9.0)
[2025-04-29 19:15] VITALS: BP 145/58; PULSE 61; O2SAT 95
--- NOTE | 2025-04-29 19:18 | PC.NURSE ---
Assumed care of patient after receiving bedside report from BREANN Garnica @ [phone]
[2025-04-29 20:35] VITALS: BP 153/61; PULSE 63; RESP 17; O2SAT 100
== END 2025-04-29 20:35 ==
PROVIDERS: Emergency Provider Physician Assistant; PCP Nurse Practitioner Family
DX: S02.40DA Maxillary fracture, left side, initial encounter for closed fracture (principal); F03.90 Unspecified dementia, unspecified severity, without behavioral disturbance, psychotic disturbance, mood disturbance, and anxiety; G40.909 Epilepsy, unspecified, not intractable, without status epilepticus; Z85.3 Personal history of malignant neoplasm of breast; F20.9 Schizophrenia, unspecified; E03.9 Hypothyroidism, unspecified; I10 Essential (primary) hypertension; W19.XXXA Unspecified fall, initial encounter
CPT/HCPCS: 36415; 70450; 70486; 71045; 72125; 80053; 81001; 84484; 85025; 85610; 85730; 93005; 99284

== ENCOUNTER 2025-06-11 14:54 | Outpatient (CLI) | payer MEDICARE, MEDICAID, SELFPAY ==
--- NOTE | ~2025-06-11 | MM_ITS ---
EXAMINATION: MM screening leonel LT w jo HISTORY: Screening TECHNIQUE: Craniocaudal and mediolateral oblique 3-D tomosynthesis images were obtained and synthetic 2-D images were generated. CAD analysis was submitted and interpreted. COMPARISON: Comparison to multiple prior studies sequentially, with oldest reviewed study dated 06/24. BREAST PARENCHYMAL COMPOSITION: Not dense: There are scattered areas of fibroglandular density. FINDINGS: There is no evidence of suspicious mass, calcification, or architectural distortion to sugg est malignancy in either breast. There has been no suspicious interval change. IMPRESSION: 1. No mammographic evidence of malignancy. 2. Recommend routine screening mammography in one year. BI-RADS Category 1: Negative Reviewed, dictated and finalized at location B.
--- OUTSIDE RECORDS SUMMARY | 2025-06-11 14:58 | XMS_ITS | Clinical Summary ---
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 Immunizations Immunization Administration Dates Next Due Influenza [...] Visit [facility] [address] [place] [address] Toni Emery MD [address] [place] [address] Health Maintenance Due Date Last Done Comments DEXA Bone Density 1942 Hepatitis C Virus (HCV) Screening 1940 Zoster Immunization (1 of 2) 1992 Respiratory Syncytial Virus (RSV) Immunization (Adult) (1 - 1-dose 75+ series) 2017 SARS-COV-2 Immunization ( season) 2025 08/24/2024, 11/02/2023, 09/09/2022, Additional history exists Influenza Immunization (#1) 2025 09/2 05/2024, 08/19/2023, 09/09/2022, Additional history exists DTaP/Tdap/Td Immunization Discontinued 2019, 02/07/2008, 01/27/2008 Pneumococcal Immunization (50+ years) Completed 09/11/2020, 07/21/2010, 06/28/2010 Pneumococcal Immunization Combined Discontinued 09/11/2020, 07/21/2010, 06/28/2010 TdaP Immunization Completed 09/11/2020 Hepatitis B Immunization Aged Out No longer eligible based on patient's age to complete this topic Human Papillomavirus (HPV) Immunization Aged Out No longer eligible based on patient's age to complete this topic Meningococcal Immunization (ACWY) Aged Out No longer eligible based on patient's age to complete this topic Rotavirus Immunization Aged Out No lo nger eligible based on patient's age to complete this topic Insurance MEDICARE MEDICAID [place] Care Teams Circular Distributor Relationship Specialty Start Date End Date Piero Holcomb MD [address] [place] [id number] PCP - General Family Medicine 07/09/16 Toni Emery MD [address] [place] [id number] Consulting Physician Neurology 10/20/15
--- OUTSIDE RECORDS SUMMARY | 2025-06-11 14:58 | XMS_ITS | Data Portability ---
Author Organization [place] [facility] [employer], Main Office Address [address] [place] [address] Care Team Providers Care Technology Administrator Name Role Phone ISMA LUIS Primary Care Provider ISMA LUIS Referring Provider [phone] Assessment Encounter Date Assessment Date Assessment LastModified by Organization Details LastModified Time 05/02/2025 05/02/2025 This note is dictated and transcribed by [employer]. Client Representative variances may occur. Despite proofreading, typographical errors may occur. Occasional wrong-word or '[id number]' substitutions may have occurred due to the inherent limitations of voice recording. Read the chart carefully and recognize, using context, where substitutions have occurred. [email or web address] Not available 05/02/2025 16:01:49 Plan of Treatment Reminders Order Date Submit Date Provider Last Modified By Organization Details Last Modified Time Details Appointments Establish ed Patient 15 2024 01:30P Samia De Oliveira DPM Not available Not available Not available Lab CBC w/ auto diff [address] (Lab), [address] [place], [address], 05/30/2025 08:04:08 CBC w/ auto diff 2024 025 [facility] (Lab), [address] [place], [address], 05/27/2025 08:22:21 TSH, serum or plasma [address] (Lab), [address] [place], [address], 05/30/2025 08:04:09 CMP, serum or plasma 2024 025 [facility] (Lab), [address] [place], [address], 05/27/2025 08:22:21 glycohemo globin, total, blood [address] (Lab), [address] [place], [address], 05/30/2025 08:04:09 lipid panel, serum 2024 025 [facility] (Lab), [address] [place], [address], 05/27/2025 08:22:21 Referral None recorded. Procedures None recorded. Surgeries None recorded. Imaging None recorded. Medication Orders cholestyr amine (with sugar) 4 gram oral powder 2024 025 [facility], [address] [place] [address], [address], 05/23/2025 11:03:52 Patient TargetsNo targets recorded. Patient Instructions Encounter Date Encounter Id Patient Instructions Last Modified By Organization Details Last Modified Time 01/30/2025 [id number] PT WITH LYMPHOCY TIC COLITIS NOT RESPONDING TO BUDESONIDE 9 MG /D . ADD CHOLESTYRAMINE 4 GM DAILY . F/U IN 4 WEEKS CALL IN 1 WEEK WITH RESULTS. [email or web address] Not available 01/30/2025 13:32:40 03/20/2025 [id number] PT WITH LYMPHOCY TIC COLITIS. CONT BUDESONIDE 3MG , 3 TABS DAILY ADD LOPERAMIDE 2 MG , 2 TABS IN THE AM . F/U IN 4 WEEKS [email or web address] Not available 03/20/2025 13:09:36 04/24/2025 [id number] GIVE CHOLESTYRAM INE AT 3 PM MED SCHEDULE . STAGGER FROM [facility] . [email or web address] Not available 04/24/2025 13:01:46 PT WITH LYMPHOCY TIC COLITIS , RECOMMEND TO CONTINUE BUDESONIDE 3MG , 3 TABS DAILY . AIDE WILL CALL WITH RESULTS . F/U IN 4 WEEKS . [email or web address] Not available 04/24/2025 13:02:01 05/23/2025 [id number] dementia rating scale-2* WALE Not available 05/23/2025 12:03:52 multi-dimensiona l health assessment questionnaire* [facility]ALE Not available 05/23/2025 12:03:39 care plan* WALE Not available 05/23 12:03:12 advance directiv es: care instructions [facility] Not available 05/23/2025 11:33:20 advance care planning: care instructions [facility] Not available 05/23/2025 11:33:20 [place] Advance Directives [facility] Not available 05/23/2025 11:33:20 Personalized Hea lth Plan and Screening Recommendations Advance Directives - Do you have one? Yes [facility] Advance Directives - Do we have your advance directive on file in your health record? Primary Prevention/Interven tion (prevents or decreases the chance of common diseases from occurring) Smoking Risk: Non Smoker Alcohol Misuse Screening: Negative Weight: Overweight try to lose 5% of your body weight Physical activity: Need more exercise/physical activity Nutrition: Good Fall Risk (screened today): High Vaccines Pneumococcal: No further needed Influenza: Your next one in the fall of this year Chronic Disease Risks Stroke: Intermediate Risk Active diagnosis, Continue current treatment plan Heart Attack: Intermediate Risk Active diagnosis, Continue current treatment plan Clogging of the Arteries: Intermediate Risk Active diagnosis, Continue current treatment plan Diabetes: Intermediate Risk Active diagnosis, Continue current treatment plan Secondary Prevention/Interven tion (detects treatable diseases before they may cause symptoms, disability, or ) Breast Cancer Screening with mammogram: No screening necessary Cervical/Uterine/Ov ayaz Cancer Screening: No screening necessary Osteoporosis Screening: No screening necessary Date Screening Last Performed: Colon Cancer Screening: No screening necessary Date Screening Last Performed: Eye Disease Screening: last performed 03/2025 Dementia Risk: High Depression Screening: Negative Active diagnosis, Continue current treatment plan [email or web address] Not available 05/23/2025 12:10:00 Reason for Referral None Reported. Results Created Date Observation Date Name Description Value Unit Range Abnormal Flag Note LastModifiedBy Organization Detail LastModifiedTime 04/30/2004/29/2025 XR, chest , 1 view No observ ation record ed. [email or web address] [facility] [address], [place], [address], 05/20/2025 15:50:56 Result Notes None recorded. Problems Name Problem SNOMED Code Status Onset Date Resolution Date Notes Provider Name and Address Organization Details Recorded Time Bilateral tailor's bunion of feet 08347896986 014696 Active 2021 Not Available [facility] 3 17:13:00 Venous varices 156565777 Completed 202105/23/2025 JUAN ANTONIO Staley [address], [address], [place], [address] , [employer] 5 12:07:45 Seizure disorder 280462813 Active Not Available [facility] 3 17:13:00 Disorder of thyroid gland 45909921 Completed 05/23/2025 JUAN ANTONIO Staley [address], [address], [place], [address] , [employer] 5 12:07:45 Microscop ic hematuria 079078437 Completed 05/23/2025 JUAN ANTONIO Staley [address], [address], [place], [address] , [employer] 5 12:07:45 Malignant tumor of breast 434213966 Completed 05/23/2025 JUAN ANTONIO Staley [address], [address], [place], [address] , [employer] 5 12:07:45 Unable to cut own toenails 695321724 Completed 202205/23/2025 JUAN ANTONIO Staley [address], [address], [place], [address] , [employer] 5 12:07:45 Periphera l arterial occlusive disease 265311066 Active 2021 Not Available [facility] 3 17:13:00 Hypothyro idism 19459832 Active 2021 Not Available [facility] 3 17:13:00 Simple obesity 708800005 Completed 202105/23/[address], [place], [address] , [facility] 5 12:07:45 History of mastectom y 815718761 Completed 202105/23/2025 JUAN ANTONIO Staley [address], [place], [address] , [employer] [facility] 5 12:07:45 Incontine nce 01782674 Completed 05/23/[address], [place], [address] , [facility] 5 12:07:45 Dementia 52356816 Active 2021 Not Available [facility] 3 17:13:00 Schizophr enia 23537848 Active 2021 Not Available [facility] 3 17:13:00 Encephalo malacia 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 Active 2021 Not Available [facility] 3 17:13:01 Moderate intellect ual disabilit y 72432452 Active 2021 Not Available [facility] 3 17:13:01 Urinary tract infectiou s disease 75426990 Completed 05/23/[address], [place], [address] , [employer] [facility] 5 12:07:45 Dystrophi a unguium 78838789 Completed 202105/23/[address], [place], [address] , [employer] 5 12:07:45 Seizure 61319397 Active 2021 Not Available [facility] 3 17:13:01 Mammograp hy abnormal 837136831 Completed 202205/23/2025 JUAN ANTONIO Staley [address], [address], [place], [address] , [employer] [facility] [employer] [facility] 5 12:07:45 Diarrhea 25351428 Completed 202205/23/2025 JUAN ANTONIO Staley [address], [address], [place], [address] , [employer] [facility] [employer] 5 12:07:45 Bunion 872756924 Completed 202205/23/2025 JUAN ANTONIO Staley [address], [address], [place], [address] , [employer] 5 12:07:45 Essential hypertens ion 75456243 Active 2022 [facility] [address], [address], [place], [address] , [employer] [facility] 3 10:45:10 Cobalamin deficienc y 735603064 Active 2022 [facility] [address], [address], [place], [address] , [employer] [facility] [employer] [facility] 3 10:45:28 Vitamin D deficienc y 95285988 Active 2022 [facility] [facility] [address], [address], [place], [address] , [employer] [facility] [employer] [facility] 3 10:45:35 Hypertrig lyceridem ia 789315726 Active 2022 [facility] Mcd[facility] [address], [address], [place], [address] , [employer] 3 10:46:49 Acute urinary tract infection 408614518 Completed 202305/23/2025 JUAN ANTONIO Staley [address], [address], [place], [address] , [employer] [facility] [employer] 5 12:07:45 Dysuria 91996220 Completed 202305/23/2025 JUAN ANTONIO Staley [address], [address], [place], [address] , [employer] [facility] [employer] 5 12:07:45 Swelling of bilateral lower limbs 658671964 Completed 202305/23/2025 JUAN ANTONIO Staley [address], [address], [place], [address] , [employer] [facility] [employer] 5 12:07:45 Lymphocyt ic colitis 9302238342 Completed 202305/23/2025 JUAN ANTONIO Staley [address], [address], [place], [address] , [facility] 5 12:07:45 Pain of toes of bilateral feet 80109208412 771217 Completed 202405/23/2025 JUAN ANTONIO Staley [address], [address], [place], [address] , [employer] [facility] [employer] 5 12:07:45 Unable to perform personal care activity 386801593 Completed 202405/23/2025 JUAN ANTONIO Staely [address], [address], [place], [address] , [employer] [facility] [employer] 12:07:45 Problem Notes None recorded. Procedures Surgical History Date Name Laterality Status Provider Name and Address Organization Details Recorded Time Medicare Wellness CPT Code, subsequent completed JUAN ANTONIO Staley [address], [place], [address], [place] [facility] [employer] 05/23/2025 12:10:13 5 Nail Debridement completed Binu De Oliveira DPM [address], [address], [place], [address], [facility] [employer] 05/02/2025 16:01:40 4 Medicare Wellness CPT Code, subsequent completed Elly Medina RN [place] [employer] [facility] [employer] 05/07/2024 10:45:30 4 Nail Debridement completed Binu De Oliveira DPM [address], [address], [place], [address], [facility] [employer] [facility] [employer] 05/01/2024 17:48:34 3 Nail Debridement completed Binu De Oliveira DPM [address], [address], [place], [address], [facility] [employer] [facility] [employer] 09/21/2023 13:53:22 3 Medicare Wellness CPT Code, Initial completed Danyell Dietz CMA [employer] [facility] [employer] 05/03/2023 11:14:19 3 Nail Debridement completed Binu De Oliveira DPM [address], [address], [place], [address], [employer] [facility] [employer] 03/22/2023 14:59:06 Imaging Results None recorded. Procedure [...] for 90 days, for LYMPHOCYT IC COLITIS. 05/23 completed Not Available Not Available Not Available cholestyram ine (with sugar) 4 gram powder for susp in a packet active Not Available Not Available Not Available memantine 10 mg tablet active Not Available Not Available Not Available memantine 5 mg tablet 05/23 completed Not Available Not Available Not Available nitrofurant oin monohydrate /macrocryst als 100 [...] index (BMI) Body weight Heart rate Systolic And Diastolic Provider Name and Address Organization Details Last Updated DateTime 01/30/2025 152.4 cm 37.1 kg/m2 45745.55 g 72 /min 142/78 mm[Hg] Shola Castellano [facility] 01/30/2025 11:13:34 Date Recorded Body height Body mass index (BMI) Body weight Heart rate Systolic And Diastolic Provider Name and Address Organization Details Last Updated DateTime 03/20/2025 152.4 cm 38.1 kg/m2 58583.51 g 70 /min 140/76 mm[Hg] Shola Castellano [facility] 03/20/2025 12:20:54 Date Recorded Body height Body mass index (BMI) Body weight Heart rate Oxygen saturation Oxygen saturation in Arterial blood by Pulse oximetry Systolic And Diastolic Provider Name and Address Organization Details Last Updated DateTime 152.4 cm 37.5 kg/m2 93179.7 4 g 73 /min 98 % 98 % 118/82 mm[Hg] Shola Castellano [facility] 12:41:12 Date Recorded Body height Body mass index (BMI) Body weight Body temperature Oxygen saturation Oxygen saturation in Arterial blood by Pulse oximetry Heart rate Systolic And Diastolic Provider Name and Address Organization Details Last Updated DateTime 152.4 cm 37.5 kg/m2 63348.7 4 g 97.5 [degF] 97 % 97 % 78 /min 118/55 mm[Hg] LUH Posada [facility] 15:43:08 Date Recorded Body height Body mass index (BMI) Body weight Body temperature Heart rate Respiratory rate Oxygen saturation Oxygen saturation in Arterial blood by Pulse oximetry Systolic And Diastolic Provider Name and Address Organization Details Last Updated DateTime 5 152.4 cm 38.7 kg/m2 00128.2 9 g 97.1 [degF] 64 /min 24 /min 99 % 99 % 118/78 mm[Hg] Joellen Santana RN [facility] [employer] 5 11:08:04 Social History Question Answer Notes LastModified by Organizat ion Details LastModified Time Tobacco Smoking Status Never Smoker JESENIA Plunkett, [place] [employer] [facility] [employer] 05/03/2023 11:16:25 Do You Have An Advance Directive? No Information not available 05/23/2025 Are You Blind Or Do You Have Difficulty Seeing? Yes Information not available 05/23/2025 What Is Your Level Of Caffeine Consumption? Occasional [email or web address] Information not available 05/03/2023 In The 14 Days Before Symptom Onset, Have You Had Close Contact With A Laboratory-confir med COVID-19 While That Case Was Ill? No Information not available 05/23/2025 In The 14 Days Before Symptom Onset, Have You Had Close Contact With A Person Who Is Under Investigation For COVID-19 While That Person Was Ill? No Information not available 05/23/2025 Are You Deaf Or Do You Have Serious Difficulty Hearing? Yes Information not available 05/23/2025 What Type Of Diet Are You Following? REGULAR Low Calorie, Low Sweets Information not available 05/23/2025 Are There Any Guns Present In Your Home? No Information not available 05/23/2025 Do You Use Insect Repellent Routinely? Yes Information not available 05/23/2025 Advance Directive- Providers Has Reviewed Directive And Consents To Follow Them (insert Provider Name With Any Objectives In Notes Field) No Information not available 05/23/2025 Presence Of Domestic Violence No Information no t available 05/23/2025 Guns Present In The Home? No Information not available 05/23/2025 Are You Able To Care For Yourself? No Information not available 05/23/2025 Are You Blind Or Do Yo Have Difficulty Seeing? Yes Information not available 05/23/2025 Are You Deaf Or Do You Have Serious Difficulty Hearing? Yes Information not available 05/23/2025 General Stress Level? Low Information not available 05/23/2025 Live Alone Of With Others? With Others Information not available 05/23/2025 Do You Have A Medical Power Of Brush Clearing Laborer? No Information not available 05/23/2025 What Was The Date Of Your Most Recent Tobacco Screening? 05/02/2025 [email or web address] Information not available 05/02/2025 Do You Have Any Pets? No Information not available 05/23/2025 What Is Your Relationship Status? Single Information not available 05/23/2025 Do You Use Your Seat Belt Or Car Seat Routinely? Yes Information not available 05/23/2025 Do You Have Smoke And Carbon Monoxide Detectors In Your Home? Yes Information not available 05/23/2025 Are You Passively Exposed To Smoke? No Information no t available 05/23/2025 Are There Any Smokers In Your House? No Information not available 05/23/2025 Do You Participate In Social Media? No Information not available 05/23/2025 Do You Use Sunscreen Routinely? Yes Information not available 05/23/2025 Has Tobacco Cessation Counseling Been Provided? No [email or web address] Information not available 05/03/2023 Have You Recently Traveled Abroad? No Information not available 05/23/2025 Do You Have Difficulty Walking Or Climbing Stairs? Yes Information not available 05/23/2025 Sex: Unknown Functional Status Question Answer Note LastModified by Organizat ion Details LastModified Time Do you use any illicit or recreational drugs? No [email or web address] Information not available 05/03/2023 Do you or have you ever used any other forms of tobacco or nicotine? No [email or web address] Information not available 05/03/2023 What is your level of alcohol consumption? None [email or web address] Information not available 05/03/2023 Are you currently employed? No Information not available 05/23/2025 Do you have transportation difficulties? No Information not available 05/23/2025 Are you able to walk? [email or web address] Information not available 05/23/2025 Do you have difficulty doing errands alone? Yes Information not available 05/23/2025 Are you able to care for yourself? No Information not available 05/23/2025 Do you have difficulty dressing or bathing? Yes Information not available 05/23/2025 What is your exercise level? None Information not available 05/23/2025 Mental Status Question Answer Note LastModified by Organizat ion Details LastModified Time Do you feel stressed (tense, restless, nervous, or anxious, or unable to sleep at night)? [id number] Information not available 05/23/2025 Do you have difficulty concentrating, remembering or making decisions? Yes Information no t available 05/23/2025 Family History Nothing Reported. Medical History Condition Response Other # 2 Y DEMENTIA Y SEIZURES/EPILEPSY Y DEVELOPMENTAL OR BEHAVIORAL DISORDERS Y MENTAL DISORDER/ILLNESS CANCER: SPECIFY OBESITY Y Gynecological History Statement/Question Response Sexually Active? N Menses Monthly N STIs/STDs N Current Control Method Menopause Breast Problems no Discharge no Obstetrics History GPAL:G 0 P 0 0 0 0 Immunizations Vaccine Type Date Status Note Provider Nam e and Address Organization Details Recorded Time COVID-19, mRNA, LNP-S, PF, 100 mcg/0.5mL dose or 50 mcg/0.25mL dose 2 completed JUAN ANTONIO Staley [address], [address], [place], [address], [facility] [employer] [facility] 05/23/2025 11:29:54 COVID-19, mRNA, LNP-S, PF, 100 mcg/0.5mL dose or 50 mcg/0.25mL dose 1 completed JUAN ANTONIO Staley [address], [address], [place], [address], [facility] [employer] [facility] 05/23/2025 11:29:54 COVID-19, mRNA, LNP-S, PF, 100 mcg/0.5mL dose or 50 mcg/0.25mL dose 1 completed JUAN ANTONIO Staley [address], [address], [place], [address], [facility] [employer] [facility] 05/23/2025 11:29:54 COVID-19, mRNA, LNP-S, PF, 100 mcg/0.5mL dose or 50 mcg/0.25mL dose 1 completed JUAN ANTONIO Staley [address], [address], [place], [address], [facility] [employer] [facility] 05/23/2025 11:29:54 Influenza, split virus, quadrivalent, preservative 6 completed JUAN ANTONIO Staley [address], [place], [address], [facility] [employer] [facility] 05/23/2025 11:29:54 Influenza, MDCK, quadrivalent, preservative 9 completed JUAN ANTONIO Staley [address], [address], [place], [address], [facility] [employer] [facility] 05/23/2025 11:29:54 Influenza, adjuvanted, quadrivalent, PF 0 completed JUAN ANTONIO Staley [address], [address], [place], [address], [facility] [employer] [facility] 05/23/2025 11:29:54 COVID-19, mRNA, LNP-S, bivalent, PF, 30 mcg/0.3 mL dose 2 completed JUAN ANTONIO Staley [address], [address], [place], [address], [facility] [employer] [facility] 05/23/2025 11:29:54 COVID-19, mRNA, LNP-S, PF, 50 mcg/0.5 mL 3 completed JUAN ANTONIO Staley [address], [address], [place], [address], [facility] [employer] [facility] 05/23/2025 11:29:54 pneumococcal polysaccharide PPV23 0 completed JUAN ANTONIO Staley [address], [address], [place], [address], [facility] [employer] [facility] 05/23/2025 11:29:54 pneumococcal polysaccharide PPV23 0 completed JUAN ANTONIO Staley [address], [address], [place], [address], [facility] [employer] [facility] 05/23/2025 11:29:54 Tdap 0 completed JUAN ANTONIO Staley [address], [address], [place], [address], [facility] [employer] [facility] 05/23/2025 11:29:54 Pneumococcal conjugate PCV 13 0 completed JUAN ANTONIO Staley [address], [address], [place], [address], [facility] [employer] [facility] 05/23/2025 11:29:55 Influenza, split virus, trivalent, preservative 3 completed JUAN ANTONIO Staley [address], [address], [place], [address], [facility] [employer] [facility] 05/23/2025 11:29:55 Influenza, split virus, trivalent, preservative 5 completed JUAN ANTONIO Staley [address], [address], [place], [address], [facility] [employer] [facility] 05/23/2025 11:29:55 Influenza, split virus, trivalent, preservative 4 completed JUAN ANTONIO Staley [address], [place], [address], [facility] [employer] [facility] 05/23/2025 11:29:55 Influenza, split virus, trivalent, preservative 3 completed JUAN ANTONIO Staley [address], [place], [address], [employer] [facility] [employer] [facility] 05/23/2025 11:29:55 Td (adult), 2 Lf tetanus toxoid, preservative free, adsorbed 8 completed [facility] [address], [place], [address], [employer] [facility] [employer] [facility] 05/23/2025 11:29:55 Influenza, split virus, quadrivalent, PF 3 completed JUAN ANTONIO Staley [address], [address], [place], [address], [employer] [facility] [employer] [facility] 05/23/2025 11:29:55 Influenza, split virus, quadrivalent, PF 8 completed JUAN ANTONIO Staley [address], [address], [place], [address], [employer] [facility] [employer] [facility] 05/23/2025 11:29:55 Influenza, split virus, quadrivalent, PF 1 completed JUAN ANTONIO Staley [address], [address], [place], [address], [employer] [facility] [employer] [facility] 05/23/2025 11:29:55 Influenza, split virus, quadrivalent, PF 2 completed JUAN ANTONIO Staley [address], [place], [id number], [employer] [facility] 05/23/2025 11:29:55 Influenza, split virus, quadrivalent, PF 7 completed JUAN ANTONIO Staley [address], [address], [place], [address], [employer] [facility] [employer] [facility] 05/23/2025 11:29:55 Past Encounters Encounter ID Performer Location Encounter Start Date Encounter Closed Date Diagnosis/Indication Diagnosis SNOMED-CT Code Diagnosis ICD10 Code Diagnosis Note [id number] Binu De Oliveira DPM [facility] Podiatry [place] [address] [address] 01/12/2022 00:00:00 01/12/2022 13:09:53 [id number] [place] [facility] Primary Care Lisa isaacs [address] [place] [address] [address] [place] [address] 09/28/2022 00:00:00 09/28/2022 13:06:20 [id number] [place] [facility] Primary Care Lisa isaacs [address] [place] [address] [address] [place] [address] 10/12/2022 00:00:00 10/12/2022 14:33:25 [id number] [place] [facility] Primary Care Lisa isaacs [address] [place] [address] [address] [place] [address] 12/21/2022 00:00:00 12/21/2022 13:22:16 [id number] Binu De Oliveira DPM [facility] Podiatry [place] [address] [address] 12/28/2022 00:00:00 12/28/2022 14:54:35 [id number] Binu De Oliveira DPM [facility] Podiatry [place] [address] [address] 03/22/2023 14:27:48 03/22/2023 15:03:11 Dystrophia unguium 04704028 L60.3 Nails 1 through 10 were debrided with sharp mechanical debridemen t without incident. Nails were debrided and greater than 50% length and thickness where needed. Unable to cut own toenails 668104116 Z74.1 secondary to dementia [id number] Maryjo Hastings MD [facility] Primary Care Lisa isaacs [address] [place] [address] [address] [place] [address] 05/03/2023 11:05:24 05/03/2023 11:50:10 Adult health examination 660205936 Z00.00 Recheck labs next visit in 6 months. Recommende d routine eye exams and dental cleanings. Shingles vaccine- unknown per caretakerP neumonia vaccine- 06/28/2010 Flu vaccine- recommende d each fallTetanu s vaccine- 09/11/2020 Mammogram- will order diagnostic mammogram/ US next visit 10/2023 Screening for disorder 426192354 Z13.9 Diarrhea 84739532 R19.7 Has been chronic problem. Denies any abdominal pain. No blood in stools. No associated N/V.Advise d to make sure she is staying well hydrated. Can try food eliminatio n.If symptoms worsen or incontinen ce becomes problem will send to GI to evaluate further. [id number] Binu De Oliveira DPM [facility] Podiatry [place] [address] [place] [address] 09/08/2023 11:50:24 09/21/2023 14:03:07 Dystrophia unguium 09593903 L60.3 Nails 1 through 10 were debrided with sharp mechanical debridemen t without incident. Nails were debrided and greater than 50% length and thickness where needed.fol low-up 3-4 months for routine foot care Bunion 552106099 M21.61 9 offloading to prevent wounds infectionC heck feet daily for wounds [facility] recommend wide athletic supportive tennis shoes with soft toe boxfollow- up in 3 months for routine foot care Unable to cut own toenails 717352721 Z74.1 secondary to dementia [id number] Maryjo Hastings MD [facility] Primary Care [facility] [address] [facility] [address] [place] [address] 11/01/2023 10:20:22 11/01/2023 11:03:58 Hypothyroidism 66635514 E03.9 Due for labs. Essential hypertension 47600979 I10 Stable. Continue to monitor. Cobalamin deficiency 190 992669 E53.8 Due for labs. Vitamin D deficiency 347 35222 E55.9 Due for labs. Hypertriglyceridemia 302 243308 E78.1 Due for labs. Only slightly elevated previously .Work on diet. 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 Nails were debrided and greater than 50% length and thickness where needed.fol low-up 3-4 months for routine foot care Moderate i ntellectual disability 85036788 F71 [id number] NIGEL Mills [facility] Primary Care [address] [place] [address] 05/08/2024 10:19:07 05/08/2024 11:17:07 Adult health examination 526252700 Z00.00 Screening for disorder 266726652 Z13.9 Thyroid di sorder screening 871675185 Z13.29 Diabetes m ellitus screening 471161517 Z13.1 Hyperlipid emia screening 802844753 Z13.220 Anemia screening 6255496 07 Z13.0 [id number] NIGEL Vega [facility] Primary Care [address] [place] [address] 06/19/2024 10:45:42 06/19/2024 11:26:51 Swelling of bilateral lower limbs 820963973 M79.89 Will check labs as listed below. Diarrhea 39338253 R19.7 3-4 episodes daily. [id number] NIGEL Vega [facility] Primary Care [address] [address] 07/11/2024 15:19:23 07/11/2024 15:41:13 [id number] Binu De Oliveira DPM [facility] Podiatry [place] [address]43 [facility] [address] [place] [address] 08/02/2024 11:34:44 08/22/2024 13:59:08 Dystrophia unguium 48760617 L60.3 Nails 1 through 10 were debrided with sharp mechanical debridemen t without incident. Nails were debrided and greater than 50% length and thickness where needed.fol low-up 3-4 months for routine foot care Unable to cut own toenails 021260838 Z74.1 secondary to dementia [id number] Kaylan Cassidy MD [facility] General Surgery [address] [address] 09/19/2024 14:15:47 09/19/2024 14:58:32 [facility] 93939385 R19.7 [id number] Kaylan Cassidy MD [facility] General Surgery [address] [address] 10/31/2024 11:17:05 10/31/2024 11:43:54 Lymphocytic colitis 3998209308 K52.768 [id number] JUAN ANTONIO Vega-Libby [facility] Primary Care [facility] [address] [facility] [place] [address] 11/01/2024 10:19:51 11/01/2024 11:08:05 Lymphocytic colitis 1084299067 K52.832 started on new medication today that was prescribed by Danna follow up as needed. [id number] Kaylan Cassidy MD [facility] General Surgery [address] [facility] [address] [address] 01/30/2025 11:11:43 01/30/2025 12:10:25 Lymphocytic colitis 8913730482 K52.349 [id number] Kaylan Cassidy MD [facility] General Surgery [address] [facility] [address] [address] 03/20/2025 12:18:27 03/20/2025 12:51:11 Lymphocytic colitis 7715589795 K52.355 [id number] Kaylan Cassidy MD [facility] General Surgery [address] [facility] [address] [address] 04/24/2025 12:36:52 04/24/2025 13:01:25 Lymphocytic colitis 2046431411 K52.767 [id number] Binu De Oliveira DPM [facility] Podiatry [place] [address] [place] [address] 05/02/2025 15:38:14 05/03/2025 13:28:56 Pain of toes of bilateral feet 8707233406 3129142 M79.674 M79.675 Secondary to toenails Dystrophia unguium 26819 009 L60.3 Nails 1 through 10 were debrided with sharp mechanical debridemen t without incident. Nails were debrided and greater than 50% length and thickness where needed.fol low-up 3-4 months for routine foot care Unable to perform personal care activity 599483251 Z78.9 [id number] Saurabh Snow MD [facility] [address] [address] 05/23/2025 10:55:10 05/23/2025 12:14:27 Adult health examination 821541065 Z00.00 Patient is in fair overall healthHeal th maintenanc e reviewedDi scussed diet and exercisePa tient questions answered Screening for disorder 915737827 Z13.9 Health Concerns Section Related Observation LastModified by Organization Detai ls LastModified Time None Recorded Concern Status LastModified by Organization Details LastModified Time None Recorded Advance Directives Directive N: Payers Insurance Date Sequence Insurance Name Policy Number Policy Miles Covered Member ID Miles Member ID Guarantor Name 04/29/2025 1 [place] Moy Gracia Jose Alejandro [id number] Moy Shabana Blount 05/01/2025 2 [place] WHEN MEDICARE OR MEDICARE REPLACEMENT PRIMARY) Moy Blount [id number] Moy Blount Notes Date Note Type Note Provider Name and Address Organization Details Recorded Time 01/30/2025 text/html MOY WAS SSEE N IN THE OFFICE TODAY FOR A F/U. PT HAS LYMPHOCYTIC COLITIS . SHE WAS RXED BUDESONIDE 3 MG , 3 TABS DAILY SINCE 10/2024. TODAY PT AND MEDICAL EDITOR SAYS SHE IS STILL GOING TO THE BR 6-7X DAILY . Kaylan Cassidy MD [address] [place] [address], [facility] [address], [place], [address], [facility] [employer] [facility] 01/30/2025 13:33:03 03/20/2025 text/html MOY WAS SEEN IN THE OFFICE TODAY FOR A F/U OF HER LYMPHOCYTIC COLITIS . SHE IS ON BUDESONIDE 3MG , 3 TABD DAILY . PT IS STILL HAVING 3 BM DAILY . Kaylan Cassidy MD [address], [address], [place], [address], [employer] [facility] [employer] 03/20/2025 13:09:55 04/24/2025 text/html MOY WAS SEEN IN THE OFFICE TODAY FOR A F/U PT HAS LYMPHOCYTIC COLITIS AND IS TAKING BUDESONIDE 3 MG , 3 TABS DAILY . PT WAS SEEN A MONTH AGO AND WAS HAVING 3 BMs DAILY . TODAY SHE REPORTS THAT 2 BMs daily . Kaylan Cassidy MD [address], [facility] [address], [place], [address], [employer] [facility] [employer] 04/24/2025 13:02:54 05/02/2025 text/html . Patient is a 85-year-old female she returns to the office for diabetic foot care. Patient has dementia she presents from a jail facility with a account executive healthcare who denies any new complaints for the patient. Patient has elongated painful toenails. Patient denies any other complaints. Binu De Oliveira DPM [address], [facility] [address], [place], [address], [employer] [facility] [employer] 05/02/2025 16:03:47 05/23/2025 text/html Moy Blount is an 85 year old female patient here today for a MAWV She has an intellectual disability and lives in a fdc. She has a medical history of dementia, schizophrenia, and seizure disorders. She does see neurology and physiatry. Does not need colonoscopy or mammogram Flu shot: 4COVID vaccines:Tdap: 2020Pneumonia vaccines completed JUAN ANTONIO Staley [address], [facility] [address], [place], [address], [employer] [facility] [employer] 05/23/2025 12:10:38 OBGyn Episode No OBEpisode recorded.
--- OUTSIDE RECORDS SUMMARY | 2025-06-11 14:58 | XMS_ITS | Continuity of Care Document ---
Author Organization [facility] Address [address] [place] [address] Phone Care Team Providers Care Mortar Maker Name Role Phone Matthews OD, Stephen Unavailable Unavailable Procedures Procedure Date Eye Exam & Treatment Refraction Eye Exam & Treatment Optic Nerve Head Eval Refraction Eye Exam & Treatment Office/outpatient Visit, Est Advance Directives Directive Yes / No Effective Date File Name No Information Encounters Encounter Description Practice Location Reason(s) For Visit Diagnoses Date Provider Providers Copied on Encounter [facility], [address] [place] [address] [address], [place], [place], [address], [place] tel:[phone] [facility] No Information Apr- 2-201 0 Matthews OD Stephen. [address] , [address], [place], [address], [place]. tel:[phone] [facility], [address] [place] [address] [address], [place], [place], [address], [place] tel:[phone] [facility] No Information March- 0-200 9 Matthews OD Stephen. [address], [place], [address], [place]. tel:[phone] [facility], [address], [place], [place], [address], tel:[phone] [facility] No Information March-1 4-200 8 Matthews OD Stephen. [address] [facility] , [address], [place], [address], [place]. tel:[phone] Office/outpat ient Visit, [facility], [address], [place], [place], [address], [place] tel:[phone] [facility] No Information March-0 9-200 7 Matthews OD Stephen. [address] [facility] , [address], [place], [address], [place]. tel:[phone] Family History Family Member Type Diagnosis Age At Onset No Information Payers Payer name Insurance type Covered democrat ID Authoriza timaribell(s) Medicare [facility] [id number] Medicaid [place] [id number] Social History Type Description Quantity Date Captured [...]
--- OUTSIDE RECORDS SUMMARY | 2025-06-11 14:58 | XMS_ITS | Referral Summary ---
Author Organization [facility] Address [address] [place] [address] Care Team Providers Care Wood Grinder Name Role Phone Yodit Sinclair NP Primary Care Provider Encounters Date Type Department Care Team Description 05/17/2025 Telephone [facility] Ophthalmology [address] [place] [address] Eboni Avendaño MD PhD new pt ; Scheduling Appointments from Last 3 Months Allergies No known active allergies Medications ziprasidone [...] Assessment & Plan (06/30/2017 1:21 PM CDT): Opml-faa-gkpunre antihistamines to take daily along with tapering [...] on file Legal Sex Female 6:26 PM FORM COVERER Gender Identity Not on file Sexual Orientation Not on file Last Filed Vital Signs Vital Sign Reading Time Taken Comments Blood Pressure 128/74 01/06/2018 3:39 PM FORM COVERER Pulse 68 01/06/2018 3:39 PM FORM COVERER Temperature 37 C (98.6 F) 01/06/2018 9:07 AM FORM COVERER Respiratory Rate 20 01/06/2018 3:39 PM FORM COVERER Oxygen Saturation 98% 01/06/2018 3:39 PM FORM COVERER Inhaled Oxygen Concentration - - Weight 68 kg (150 lb) 01/06/2018 9:07 AM FORM COVERER Height 152.4 cm (5') 01/06/2018 9:07 AM FORM COVERER Body Mass Index 29.29 01/06/2018 9:07 AM FORM COVERER Plan of Treatment Not on file Procedures Procedure Name Priority Date/Time Associated Diagnosis Comments HM MAMMOGRAPHY Routine 02/21/2017 from Last 3 Months or Most Recently Relevant to Health Maintenance Results * MAMMOGRAPHY (02/21/2017) Mammogram Normal Historical Provider MD HEALTH MAINTENANCE Final Result from Last 3 Months or Most Recently Relevant to Health Maintenance Insurance [facility] MEDICARE MEDICARE IDPA Care Teams Wood Grinder Relationship Specialty Start Date End Date Yodit Sinclair NP [address] [facility] [facility] [place] [address] PCP - General Nurse Practitioner 05/24/25
--- OUTSIDE RECORDS SUMMARY | 2025-06-11 14:58 | XMS_ITS | Clinical Summary ---
Author Organization [facility] Address [address] [place] [address] Care Team Providers Care Firmware Manager Name Role Phone Les Sinclairkali [address] LIGHT SERVICER Primary Care Provider Allergies No known active allergies Medications ziprasidone [...] Assessment & Plan (06/30/2017 1:21 PM CDT): Qfie-lff-alewhji antihistamines to take daily along with tapering [...] bunions 06/24/2017 MR (mental retardation), moderate 06/24/2017 Encounters Date Type Department Care Team Description 05/17/2025 Telephone [facility] Ophthalmology [address] [place] [address] Eboni Avendaño MD PhD new pt ; Scheduling Appointments from Last 3 Months Immunizations Immunization Administration Dates Next Due Pneumococcal [...] on file Legal Sex Female 6:26 PM JOB TRAINING SUPERVISOR Gender Identity Not on file Sexual Orientation Not on file Obstetrics History Last Filed Vital Signs Vital Sign Reading Time Taken Comments Blood Pressure 128/74 01/06/2018 3:39 PM JOB TRAINING SUPERVISOR Pulse 68 01/06/2018 3:39 PM JOB TRAINING SUPERVISOR Temperature 37 C (98.6 F) 01/06/2018 9:07 AM JOB TRAINING SUPERVISOR Respiratory Rate 20 01/06/2018 3:39 PM JOB TRAINING SUPERVISOR Oxygen Saturation 98% 01/06/2018 3:39 PM JOB TRAINING SUPERVISOR Inhaled Oxygen Concentration - - Weight 68 kg (150 lb) 01/06/2018 9:07 AM JOB TRAINING SUPERVISOR Height 152.4 cm (5') 01/06/2018 9:07 AM JOB TRAINING SUPERVISOR Body Mass Index 29.29 01/06/2018 9:07 AM JOB TRAINING SUPERVISOR Plan of Treatment Health Maintenance Due Date Last Done Comments Fall Risk Assessment 1942 Osteoporosis Screening-Bone Density Scan 1942 Hepatitis B Screening 1960 Zoster Vaccine (1 of 2) 1992 DTaP/Tdap/Td Vaccine (1 - Tdap) 02/08/2008 8, 01/27/2008 Pneumococcal vaccine 65+ (2 of 2 - PCV) 07/21/2011 07/21/2010, 06/28/2010 Breast Cancer Screening-Mammogram 02/21/2018 017 Well Visit 65+ 06/24/2018 06/24/2017 Depression Screening 09/28/2018 09/28/2017, 06/30/2017, 06/24/2017 Influenza Vaccine (Season Ended) 2025 11/28/19 13 Procedures Procedure Name Priority Date/Time Associated Diagnosis Comments MAMMOGRAPHY Routine 02/21/2017 from Last 3 Months or Most Recently Relevant to Health Maintenance Results * MAMMOGRAPHY (02/21/2017) Mammogram Normal Historical Provider MD HEALTH MAINTENANCE Final Result from Last 3 Months or Most Recently Relevant to Health Maintenance Insurance [place] [address] [place] [address] Care Teams Firmware Manager Relationship Specialty Start Date End Date Yodit Sinclair NP [facility] [place] [place] [address] PCP - General Nurse Practitioner 05/24/25
== END 2025-06-11 14:55 | disposition home or self-care (01) ==
LOC: ANHIMG 14:56
PROVIDERS: PCP Nurse Practitioner Family; Visit Provider Nurse Practitioner Family
DX: Z12.31 Encounter for screening mammogram for malignant neoplasm of breast (principal)
CPT/HCPCS: 77063; 77067

== ENCOUNTER 2025-06-14 11:43 | Emergency (ER) | payer MEDICARE, MEDICAID, SELFPAY ==
[2025-06-14 11:53] VITALS: BP 153/66; PULSE 74; RESP 18; TEMP 36.5; O2SAT 100
--- NOTE | 2025-06-14 12:05 | ED_ITS ---
HPI - Extremity Problem General Chief complaint: Extremity Injury, Lower Stated complaint: swollen legs Time Seen by Provider: 06/14/25 11:45 Source: patient Mode of arrival: ambulatory Limitations: no limitations History of Present Illness HPI Narrative: Patient is an 85-year-old female that presents with bilateral lower extremity edema and erythema. Patient has dementia and lives in a care home. Caregiver brought patient in stating she was unable to do her daily activity due to swelling in legs. Patient is normally up throughout the day. Caregiver does states she may have had changes in her diet including increase in salt over the last few days and may have been sitting longer than normal. Patient has no history any heart or kidney diseases. Patient was seen in ER a month ago and labs were stable at that time. Patient is not having any shortness of breath. Patient has not had any fevers, chills, nausea, vomiting, diarrhea. Related Data Home Medications ?Medication ?Instructions ?Recorded ?Confirmed ?Last Taken ?Type Adult Low Dose Aspirin 81 mg PO DAILY 02/14/20 05/07/25 Unknown History Oyster Shell Calcium 500 500 mg PO DAILY 02/14/20 05/07/25 Unknown History aluminum-mag hydroxide-simethicone 30 ml PO Q6H PRN Indigestion 02/14/20 05/07/25 Unknown History 200 mg-200 mg-20 mg/5 mL oral susp (Almacone) bisacodyl 5 mg tablet,delayed 5 mg PO PRN PRN Constipation 02/14/20 05/07/25 Unknown History release bismuth subsalicylate 262 mg/15 mL 524 mg PO QID PRN Loose Stool 02/14/20 05/07/25 Unknown History oral suspension (Bismatrol) buspirone 10 mg tablet 10 mg PO BID 02/14/20 05/07/25 Unknown History calcium carbonate (Oyster Shell 500 mg PO DAILY 02/14/20 05/07/25 Unknown Histor y Calcium 500) cetirizine 10 mg PO DAILY 02/14/20 05/07/25 Unknown History cyanocobalamin (vitamin B-12) 100 100 mcg PO DAILY 02/14/20 05/07/25 Unknown History mcg tablet (Vitamin B-12) diphenhydramine HCl 25 mg capsule 25 mg PO Q6H PRN Allergy Symptoms 02/14/20 05/07/25 Unknown History (Benadryl) divalproex 125 mg capsule,delayed 125 mg PO BID 02/14/20 05/07/25 Unknown H istory release sprinkle duloxetine 60 mg capsule,delayed 60 mg PO DAILY 02/14/20 05/07/25 Unknown History release guaifenesin 100 mg/5 mL oral 200 mg PO Q4H PRN Cough 02/14/20 05/07/25 Unknown History liquid (Robafen) irbesartan 150 mg tablet 150 mg PO DAILY 02/14/20 05/07/25 Unknown History levothyroxine 112 mcg tablet 112 mcg PO DIRECTED 02/14/20 05/07/25 Unknown History loperamide 2 mg capsule 2 mg PO Q2-4H PRN Diarrhea 02/14/20 05/07/25 Unknown History memantine 5 mg tablet 5 mg PO BID 02/14/20 05/07/25 Unknown History potassium chloride 20 mEq 20 meq PO BID 02/14/20 05/07/25 Unknown History tablet,extended release(part/cryst) rivastigmine 9.5 mg/24 hour 9.5 mg transdermal DAILY 02/14/20 05/07/25 Unknown History transdermal patch (Exelon Patch) trazodone 100 mg tablet 100 mg PO HS 02/14/20 05/07/25 Unknown History wheat dextrin 3 gram/3.5 gram oral 3 g PO DAILY 02/14/20 05/07/25 Unknown History powder packet (Benefiber Clear Sugar Free(dextrin)) nystatin 100,000 unit/gram topical topical 06/14/25 Unknown History powder (Nystop) Allergies Allergy/AdvReac Type Severity Reaction Status Date / Time No Known Allergies Allergy Verified 06/14/25 12:07 Review of Systems Review of Systems: All systems reviewed & are unremarkable except as noted in HPI and below Constitutional: Constitutional: Denies body ache(s), Denies chills, Denies fatigue, Denies fever(s), Denies headache(s), Denies malaise and Denies weakness Eyes: Eyes: Denies blurry vision, Denies irritation and Denies loss of vision ENT: Denies otalgia, Denies headache(s), Denies nasal discharge, Denies sinus pain and Denies sore throat Cardiovascular: Cardiovascular: Denies chest pain, Denies irregular heart rhythm, Reports leg edema and Denies dyspnea Respiratory: Respiratory: Denies dyspnea Gastrointestinal: Gastrointestinal: Denies abdominal pain, Denies melena, Denies hematochezia, Denies diarrhea, Denies nausea and Denies vomiting Musculoskeletal: Musculoskeletal: Denies back pain, Denies myalgias and Denies arthralgias Integumentary/Breasts: Skin/Breast: Denies pruritus, Reports erythema and Denies rash Neurologic: Denies headache(s), Denies loss of vision and Denies weakness Psychiatric: Psychiatric: Reports no additional psychiatric complaints Endocrine: Endocrine: Denies fatigue PMFSH Past Medical History Medical History Dementia Seizure disorder Breast cancer Schizophrenia Hypothyroid Post-menopausal HTN (hypertension) Surgical History Surgical History History of mastectomy Right Social History Social History Social History: Resides in a care home. She is a grey of the [facility] and full code status. Smoking status: Unknown if ever smoked Alcohol intake: unknown Substance use: unknown Occupation/Education: retired Additional occupation/education comments: Disabled due to psychological condition Gender identity (if verbalized by the patient): Female Comments At time of signature, agree with nursing past medical, surgical, social and family history. There is no relevant family history pertinent to the presenting complaint. Exam Const: General: cooperative, healthy appearing, comfortable, no acute distress and well nourished Nutritional Appearance: well nourished Orientation/consciousness: patient oriented x3 Limitations: no limitations HENMT: Head: normal to inspection, normocephalic and atraumatic Ears: hearing grossly normal bilaterally and external ears normal Face/Nose/Sinus: Normal external nose present, normal facial exam and face symmetric Face and sinus: normal facial exam and face symmetric Mouth: Yes lip normal Eyes: General: appearance normal, both eyes and all related structures Alignment and Position: alignment normal and position normal Periorbital: periorbital findings normal Eyelids: eyelids normal Pupils: Equal, round and reactive pupils present EOM: EOMs intact bilaterally Neck: Neck: normal visual inspection, full ROM and supple Chest: Chest palpation & inspection: normal inspection of the chest Resp: Effort & Inspection: normal respiratory effort and able to speak in complete sentences Auscultation: clear to auscultation bilaterally, no crackles, no rales, no rhonchi, no wheezes and lung sounds not diminished Cardio: Rate: regular rate Rhythm: regular rhythm Heart sounds: S1 normal heart sound present and S2 normal heart sound present GI: Inspection: normal to inspection Skin: General skin exam: normal color and no rashes or lesions noted Neuro: General: patient oriented x3 and moves all extremities Cranial nerves: Yes Equal, round and reactive pupils present Speech: normal speech Gait exam (Neuro): Normal gait present Extrem: General: normal to inspection, full ROM and no edema Right lower extremity: lower leg Details: erythema Location: of the mid lower leg Location: anteriorly and of the distal lower leg Location: anteriorly and pitting edema Details: 2+; no tenderness and no unusual warmth, ankle Details: edema Details: pitting and 2+ and normal ROM; no tenderness, no unusual warmth and achilles tendon exam normal and foot Details: normal capillary refill, toes with normal ROM, edema and vascular exam Details: dorsalis pedis pulse present and normal capillary refill; no tenderness and no unusual warmth Left lower extremity: lower leg Details: erythema Location: of the mid lower leg Location: anteriorly and of the distal lower leg Location: anteriorly and pitting edema Details: 2+; no tenderness and no unusual warmth, ankle Details: pitting edema Details: pitting and 2+ and normal ROM; no tenderness, no warmth and achilles tendon exam normal and foot Details: normal capillary refill, toes with normal ROM, edema and vascular exam Details: dorsalis pedis pulse present and normal capillary refill; no tenderness and no unusual warmth Psych: Appearance: grossly normal and well kempt Mental Status: mental status grossly normal Speech and movement: Normal speech and movement present Affect: normal affect Attitude: cooperative Thought process: Normal thought process present Course Course Emergency Course: Patient is aware of diagnosis, understands and agrees to treatment plan. Anticipatory guidance given. Patient agrees to follow-up as directed and is aware of reasons to seek care at the emergency department. Portions of this record may have been created with voice recognition software Level of Care: Express Care Visit Vital Signs Vital signs: Vital Signs Temperature 36.5 C 06/14/25 11:53 Pulse Rate 74 06/14/25 11:53 Respiratory Rate 18 07/18/25 11:53 Blood Pressure 153/66 H 06/14/25 11:53 Pulse Oximetry 100 06/14/25 11:53 Oxygen Delivery Room Air 06/14/25 11:53 Temperature 36.5 C 06/14/25 11:53 Pulse Rate 74 06/14/25 11:53 Respiratory Rate 18 06/14/25 11:53 Blood Pressure 153/66 H 06/14/25 11:53 Pulse Oximetry 100 06/14/25 11:53 Oxygen Delivery Room Air 06/14/25 11:53 Reviewed MDM - Extremity (Nontraumatic) MDM Narrative Medical decision making narrative: Discussed importance of following up with PCP for lab work if swelling is not improved with reduced salt intake, Mohan hose and elevation. Will cover with a ntibiotics for erythema consistent with cellulitis. Caregiver able to repeat back instructions to take her to the emergency department if leg swelling worsens or she starts to have any shortness of breath. Pt well hydrated appearing, in no respiratory distress, hemodynamically stable. The patient is stable at time of discharge the clinical impression was discussed and the patient was given the opportunity to ask questions, which were addressed as completely as possible given the information available at present. Anticipatory guidance and return to care precautions were discussed and the imp ortance of primary care follow-up was stressed and encouraged. The caregiver voiced understanding of the plan, indications to return, and the need for follow-up. Exam findings show no acute concerns or changes Patient is appropriate for outpatient treatment and follow-up. Discharge Plan Discharge Clinical Impression: Bilateral edema of lower extremity, Cellulitis Patient Disposition: Home Condition: Stable Instructions: Cellulitis (ED), Leg Edema (ED) Additional Instructions: Please follow up with your Primary Care Doctor within 48-72 hours - call for an appointment. Rest and elevate affected area; apply moist heat 3-4 times daily for 10-15 minutes. Elevate the affected area if possible Please take Antibiotics as directed. For pain, you may take: Tylenol 650-1000mg by mouth every 4-6 hours. Do not exceed 4000mg in 24 hours. Advil (Ibuprofen) 600 mg by mouth every 6 hours. Do not exceed 2400mg in 24 hours. 8 AM: Tylenol 11 AM: Ibuprofen 2 PM: Tylenol 5 PM: Ibuprofen 8 PM: Tylenol 11 PM: Ibuprofen 2 AM: Tylenol 5 AM: Ibuprofen Wear Mohan hose and decreased oral intake. If you experience any worsening redness, swelling, streaking (red lines), fever or chills, worsening edema or shortness of breath please go to the ER Your blood pressure was elevated above 120/80 today at Urgent Care. This puts you above the threshold for follow up visit with a primary care provider. High blood pressure does not usually cause any symptoms, however it may lead to kidney failure, stroke, heart disease just to name a few if untreated . Many people are anxious when seeing a provider or nurse. As a result, you are not diagnosed with hypertension at this time unless your blood pressure is persistently high at two office visits at least one week apart. Some things that can help lower blood pressure are lifestyle modifications, such as light exercise, decreased salt in diet, and weight loss. It is important to follow up with a PCP about this within 1 week. Patient Language: Kiswahili Prescriptions: New cephalexin 500 mg capsule 500 mg PO QID 7 Days Qty: 28 0RF No Action nystatin [Nystop] 100,000 unit/gram powder TOPICAL Adult Low Dose Aspirin 81 mg PO DAILY potassium chloride 20 mEq tablet,ER particles/crystals 20 meq PO BID trazodone 100 mg tablet 100 mg PO HS Patient Comments: 50 mg buspirone 10 mg tablet 10 mg PO BID irbesartan 150 mg tablet 150 mg PO DAILY divalproex 125 mg capsule, delayed rel sprinkle 125 mg PO BID levothyroxine 112 mcg tablet 112 mcg PO DIRECTED memantine 5 mg tablet 5 mg PO BID rivastigmine [Exelon Patch] 9.5 mg/24 hr patch 24 hour 9.5 mg transdermal DAILY cetirizine 10 mg PO DAILY duloxetine 60 mg Capsule,Delayed Release(Dr/Ec) 60 mg PO DAILY cyanocobalamin (vitamin B-12) [Vitamin B-12] 100 mcg Tablet 100 mcg PO DAILY calcium carbonate [Oyster Shell Calcium 500] 500 mg calcium (1,250 mg) Tablet 500 mg PO DAILY bismuth subsalicylate [Bismatrol] 262 mg/15 mL Suspension 524 mg PO QID PRN (Reason: Loose Stool) bisacodyl 5 mg Tablet,Delayed Release (Dr/Ec) 5 mg PO PRN PRN (Reason: Constipation) alum-mag hydroxide-simeth [Almacone] 200-200-20 mg/5 mL Suspension 30 ml PO Q6H PRN (Reason: Indigestion) Benefiber Clear SF (dextrin) 3 gram/3.5 gram Powder In Packet 3 g PO DAILY Oyster Shell Calcium 500 500 mg PO DAILY loperamide 2 mg Capsule 2 mg PO Q2-4H PRN (Reason: Diarrhea) guaifenesin [Robafen] 100 mg/5 mL Liquid 200 mg PO Q4H PRN (Reason: Cough) diphenhydramine HCl [Benadryl] 25 mg Capsule 25 mg PO Q6H PRN (Reason: Allergy Symptoms) Follow-up/Referrals: Yahir,Yodit Arteaga, TECHNICAL DOCUMENTATION SPECIALIST [Primary Care Provider] - 3 Days Time of Disposition: 12:28
== END 2025-06-14 12:38 | disposition home or self-care (01) ==
PROVIDERS: Emergency Provider Nurse Practitioner Family
DX: R60.0 Localized edema (principal); L03.116 Cellulitis of left lower limb; L03.115 Cellulitis of right lower limb; F03.90 Unspecified dementia, unspecified severity, without behavioral disturbance, psychotic disturbance, mood disturbance, and anxiety; I10 Essential (primary) hypertension; E03.9 Hypothyroidism, unspecified; G40.909 Epilepsy, unspecified, not intractable, without status epilepticus; Z85.3 Personal history of malignant neoplasm of breast; Z90.11 Acquired absence of right breast and nipple
CPT/HCPCS: 99213; G0463

== ENCOUNTER 2025-07-08 11:04 | Emergency (ER) | payer MEDICARE, MEDICAID, SELFPAY ==
--- NOTE | ~2025-07-08 | XR_ITS ---
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 Mild scapholunate widening. No acute fr acture or traumatic malalignment. No soft tissue abnormality. Impression: 1: Mild polyarticular osteoarthritis. Reviewed, dictated and finalized at location A. Impression: 1: Mild polyarticular osteoarthritis.
--- NOTE | ~2025-07-08 | XR_ITS ---
XR hip BI 2V w AP pelvis 07/08/2025 13:57 Indication: Hip pain Procedure: AP pelvis and 2 views each hip Comparison: No prior studies for comparison. Findings: Bilateral symmetric osteoarthritis of the hips. There is lower lumbar spondylosis. Pelvic r ings intact. No soft tissue abnormality. Impression: 1: Mild symmetric osteoarthritis of the hips. Reviewed, dictated and finalized at location A. Impression: 1: Mild symmetric osteoarthritis of the hips.
--- NOTE | ~2025-07-08 | XR_ITS ---
[XR ribs LT 2V w CXR 2V ] INDICATION: Rib pain TECHNIQUE: Frontal projection of the upper left ribs, frontal projection of the lower left ribs, obli que projection of all the left ribs, frontal inspiratory chest x-ray for interpretation. FINDINGS: There are no displaced rib fractures identified. There are no soft tissue abnormality see n. The lungs are clear. IMPRESSION: 1:No acute displaced rib fractures. Reviewed, dictated and finalized at location A.
--- NOTE | ~2025-07-08 | XR_ITS ---
XR forearm RT 2V 07/08/2025 13:57 Indication: Right arm pain after fall Procedure: 2 views right forearm Comparison: 10/10/2014 Findings: No acute fracture or subluxation. There is scapholunate widening. There is mixed sclerosis and lucency of the lunate, consistent with avascular necrosis. Impression: 1: No acute fracture. Reviewed, dictated and finalized at location A. Impression: 1: No acute fracture.
--- NOTE | ~2025-07-08 | XR_ITS ---
XR knee LT 3V 07/08/2025 13:57 Indication: Left knee pain Procedure: 2 view left knee Comparison: 10/18/2023 Findings: Severe tricompartment osteoarthritis. No acute fracture or traumatic malalignment. No forei gn bodies. There are vascular calcifications. 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 Reviewed, dictated and finalized at location A. 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
--- OUTSIDE RECORDS SUMMARY | 2025-07-08 11:08 | XMS_ITS | Clinical Summary ---
Author Organization [facility] Address [address] [place] [address] Care Team Providers Care Vulcanized Fiber Unit Operator Name Role Phone Les Sinclairkali Cuenca EXECUTIVE RELATIONS SPECIALIST Primary Care Provider Allergies No known active [...] Active Problems Problem Noted Date Diagnosed Date Combined forms of age-related cataract Assessment & Plan (06/25/2025 4:31 PM CDT): Cataract Pre-Op Note HPI: Gaviota Blount is a 85 y.o. y/o female who presents for cataract evaluation. Per fish hatchery manager, pt did not have any obvious vision issues prior to presentation. They were referred here after routine examination. Patient is minimally verbal but states vision is good. On gross examination, she is able to ambulate with walker and transfer to exam chair without much difficulty. Ocular ROS: Glare DTA Halos DTA Trouble driving N/A Trouble reading N/A does not read All other ROS negative unless noted in HPI. Active ocular issues: Refractive error Narrow angles OU Drusenoid pigmentary changes OU None per fish hatchery manager Ocular History: Amblyopia No Vitrectomy No Scleral buckle No Intravitreal Injections No Laser refractive surgery No History of ocular trauma No History of eye infection No Medical History: Past Medical History: Diagnosis Date Adiposity Obesity Disorder of thyroid Thyroid disease HX OTHER MEDICAL schizophrenia HX OTHER MEDICAL encephalomalacia HX OTHER MEDICAL mental retardation Seizure disorder (HCC) Seizure disorder Medical ROS per fish hatchery manager: Angina present? No Cough or orthopnea? No Dyspnea on exertion? No Has sleep apnea/wears CPAP? No Patient is able to lie flat for at least 1 hour YES Current medications: Systemic medications per EMR Flomax/Hytrin No Coumadin/Plavix No Allergies: No Known Allergies Cataract specific exam findings: Prominent brow YES Dense arcus No K spindle No [place] No PXE material No TIDs No Phacodonesis No Posterior synechiae No L/I step off No Mature/white No Dominant Eye: DTA Dilates to: OD 5 mm OS 5 mm Tolerance of gonioscopy: fair Assessment and Plan 1. Visually Significant Cataract of both eyes - R/B/A of surgery discussed in detail with patient including but not limited to infection, bleeding, persistent inflammation, retinal tear or detachment, diplopia, ptosis, macular edema, intraocular pressure abnormalities, need for further surgeries or procedures, need for spectacle correction after surgery, possible loss of vision, possible loss of the eye, and risks of anesthesia. - Target refraction was discussed with the patient and caregiver. She spends much of her time doing puzzles. In the future, she may want to pursue near target OU. However, fore now pt is able to perform ADLs without much difficulty from vision perspective per caregiver. Will monitor in general clinic and return to pre-op should pt begin to have vision challenges or pressure issues related phacomorphic glaucoma. 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 No IOP spike after dilation. With moderate cataracts OU, but pt is not bothered by them. Able to do puzzles and perform ADLs without issue per caregiver. Discussed signs/sx angle closure/IOP spike including headache/eye pain, vision changes. Caregiver understands to call [facility] should patient experience these sx. RTC UES KATIE 6 months for gonio, sx/IOP check. Acute dermatitis 06/30/2017 Assessment & Plan (06/30/2017 1:21 PM CDT): Ctuh-avw-sbmoxhi antihistamines to take daily along with tapering [...] Encounters Date Type Department Care Team Description 06/25/2025 2:30 PM CDT Office Visit [facility] [address] [place] [address] [place] [id number] Combined forms of age-related cataract of both eyes (Primary Dx); Anatomical narrow angle 05/17/2025 Telephone [facility] [address] [place] [id number] Eboni Avendaño MD PhD new pt [...] on file Legal Sex Female 6:26 PM CANE WEIGHER HELPER Gender Identity Not on file Sexual Orientation Not on file Obstetrics History Last Filed Vital Signs Vital Sign Reading Time Taken Comments Blood Pressure 128/74 01/06/2018 3:39 PM CANE WEIGHER HELPER Pulse 68 01/06/2018 3:39 PM CANE WEIGHER HELPER Temperature 37 C (98.6 F) 01/06/2018 9:07 AM CANE WEIGHER HELPER Respiratory Rate 20 01/06/2018 3:39 PM CANE WEIGHER HELPER Oxygen Saturation 98% 01/06/2018 3:39 PM CANE WEIGHER HELPER Inhaled Oxygen Concentration - - Weight 68 kg (150 lb) 01/06/2018 9:07 AM CANE WEIGHER HELPER Height 152.4 cm (5') 01/06/2018 9:07 AM CANE WEIGHER HELPER Body Mass Index 29.29 01/06/2018 9:07 AM CANE WEIGHER HELPER Plan of Treatment Health Maintenance Due Date Last Done Comments Fall Risk Assessment 1942 Osteoporosis Screening-Bone Density Scan 1942 Hepatitis B Screening 1960 Zoster Vaccine (1 of 2) 1992 Breast Cancer Screening-Mammogram 02/21/2018 017 Well Visit 65+ 06/24/2018 06/24/2017 Depression Screening 09/28/2018 09/28/2017, 06/30/2017, 06/24/2017 Covid-19 Vaccine (2023- 5 season) 2025 08/24/2024, 11/02/2023, 09/09/2022, Additional history exists Influenza Vaccine (#1) 2025 , 08/19/2023, 09/09/2022, Additional history exists DTaP/Tdap/Td Vaccine (2 - Td or Tdap) 09/11/2030 09/11/2020, 02/07/2008, 01/27/2008 Pneumococcal vaccine 65+ Completed 020, 07/21/2010, 06/28/2010 Procedures Procedure Name Priority Date/Time Associated Diagnosis Comments IOL BIOMETRY - OU - BOTH EYES Routine 06/25/2025 9:11 PM CDT Combined forms of age-related cataract of both eyes MAMMOGRAPHY Routine 02/21/2017 from Last 3 Months or Most Recently Relevant to Health Maintenance Results * IOL Biometry - OU - Both Eyes (06/25/2025 9:11 PM CDT) Anatomical Region Laterality Modality Head Ophthalmic Axial Measurements Narrative 06/25/2025 9:11 PM CDT Adequate for preoperative surgical planning. Bernard Brown MD PhD OPHTH ULTRASOUND Final Result * MAMMOGRAPHY (02/21/2017) Mammogram Normal Historical Provider HEALTH MAINTENANCE Final Result from Last 3 Months or Most Recently Relevant to Health Maintenance Insurance [facility] [place] [address] MEDICARE MEDICARE [facility] Care Teams Vulcanized Fiber Unit Operator Relationship Specialty Start Date End Date Yodit Sinclair NP Clif BLANDKYREE HERNANDE[place] [address] PCP - General Nurse Practitioner 05/24/25
--- OUTSIDE RECORDS SUMMARY | 2025-07-08 11:08 | XMS_ITS | Continuity of Care Document ---
Author Organization [facility] Address [address] [facility] [address] [place] [address] Phone Care Team Providers Care Education Trainer Name Role Phone Matthews OD, Stephen Unavailable Unavailable Procedures Procedure Date Eye Exam & Treatment Refraction Eye Exam & Treatment Optic Nerve Head Eval Refraction Eye Exam & Treatment Office/outpatient Visit, Est Advance Directives Directive Yes / No Effective Date File Name No Information Encounters Encounter Description Practice Location Reason(s) For Visit Diagnoses Date Provider Providers Copied on Encounter [facility], [address] [place] [address] [address], [place], [place], [id number], [place] tel:[phone] [facility] No Information Apr- 2-201 0 Matthews OD Stephen. [address] , [address], [place], [address], [place]. tel:[phone] [facility], [id number] [place] [address] [address], [place], [place], [id number], [place] tel:[phone] [facility] No Information March- 0-200 9 Matthews OD Stephen. [address], [place], [address], [place]. tel:[phone] [facility], [address], [place], [place], [id number], tel:[phone] [facility] No Information March-1 4-200 8 Matthews OD Stephen. [address] [facility] , [address], [place], [address], [place]. tel:[phone] Office/outpat ient Visit, [facility], [address], [place], [place], [id number], [place] tel:[phone] [facility] No Information March-0 9-200 7 Matthews OD Stephen. [address] [facility] , [address], [place], [address], [place]. tel:[phone] Family History Family Member Type Diagnosis Age At Onset No Information Payers Payer name Insurance type Covered constitution party ID Authoriza timaribell(s) Medicare [facility] [id number] [place] 09 [id number] Social History Type Description Quantity Date Captured [...]
--- OUTSIDE RECORDS SUMMARY | 2025-07-08 11:08 | XMS_ITS | Clinical Summary ---
Author Organization [facility] Address [address] [facility] [place] [address] Phone Care Team Providers Care Office Coordinator Name Role Phone Toni Emery MD Unavailable [phone] Piero Holcomb MD Primary Care Provider [phone] Allergies No known active allergies Medications acetaminophen [...] Visit [facility] - Neurology [facility] [address] [place] [address] Toni Emery MD [address] [place] [address] Health Maintenance Due Date Last Done Comments [...] age to complete this topic Insurance MEDICARE Member Subscriber Plan / Payer (Ef fective 1982-Present) Name:Saima Blountnohelia Gracia Member ID:[id number] Relation to Subscriber:Self Name:Gaviota Blount Subscriber ID:[id number] Payer ID:[id number] Group ID:Not on file Type:Not on file Address: [facility] [address] [facility] [employer] [place] [address] MEDICAID [place] Care Teams Office Coordinator Relationship Specialty Start Date End Date Piero Holcomb MD [address] [place] [address] PCP - General Family Medicine 07/09/16 Toni Emery MD [address] [place] [phone] Consulting Physician Neurology 10/20/15
[2025-07-08 11:09] VITALS: BP 98/58; PULSE 68; RESP 16; TEMP 37.1; O2SAT 100
[2025-07-08 12:25] VITALS: BP 105/60; PULSE 69; RESP 14; TEMP 36.4; O2SAT 96
--- OUTSIDE RECORDS SUMMARY | 2025-07-08 13:34 | XMS_ITS | Clinical Summary ---
Author Organization [facility] Address [address] [place] [address] Care Team Providers Care Warehouse Order Filler Name Role Phone Les Sinclairkali Cuenca TRASH COLLECTOR Primary Care Provider Allergies No known active [...] female who presents for cataract evaluation. Per elementary school tutor, pt did not have any obvious vision [...] OU Drusenoid pigmentary changes OU None per elementary school tutor Ocular History: Amblyopia No Vitrectomy No Scleral buckle No Intravitreal Injections No Laser refractive surgery No History of ocular trauma No History of eye infection No Medical History: Past Medical History: Diagnosis Date Adiposity Obesity Disorder of thyroid Thyroid disease HX OTHER MEDICAL schizophrenia HX OTHER MEDICAL encephalomalacia HX OTHER MEDICAL mental retardation Seizure disorder (HCC) Seizure disorder Medical ROS per elementary school tutor: Angina present? No Cough or orthopnea? No [...] phone number at which to reach patient: [phone] (Loretta Arriolasey, motor vehicle operator road supervisor of care home) Anatomical narrow angle 06/25/2025 Assessment & Plan [...] Assessment & Plan (06/30/2017 1:21 PM CDT): [id number] antihistamines to take daily along with tapering [...] Description 06/25/2025 2:30 PM CDT Office Visit [facility] Ophthalmology [address] [place] [address] [place] [id number] Combined forms of age-related cataract of both eyes (Primary Dx); Anatomical narrow angle 05/17/2025 Telephone [facility] Ophthalmology [address] [place] [id number] Eboni Avendaño MD PhD new pt [...] on file Legal Sex Female 6:26 PM SUPERVISORY CIVIL ENGINEER Gender Identity Not on file Sexual Orientation Not on file Obstetrics History Last Filed Vital Signs Vital Sign Reading Time Taken Comments Blood Pressure 128/74 01/06/2018 3:39 PM SUPERVISORY CIVIL ENGINEER Pulse 68 01/06/2018 3:39 PM SUPERVISORY CIVIL ENGINEER Temperature 37 C (98.6 F) 01/06/2018 9:07 AM SUPERVISORY CIVIL ENGINEER Respiratory Rate 20 01/06/2018 3:39 PM SUPERVISORY CIVIL ENGINEER Oxygen Saturation 98% 01/06/2018 3:39 PM SUPERVISORY CIVIL ENGINEER Inhaled Oxygen Concentration - - Weight 68 kg (150 lb) 01/06/2018 9:07 AM SUPERVISORY CIVIL ENGINEER Height 152.4 cm (5') 01/06/2018 9:07 AM SUPERVISORY CIVIL ENGINEER Body Mass Index 29.29 01/06/2018 9:07 AM SUPERVISORY CIVIL ENGINEER Plan of Treatment Health Maintenance Due Date [...] Insurance [facility] MEDICARE MEDICARE [facility] Care Teams Warehouse Order Filler Relationship Specialty Start Date End Date Yodit Sinclair NP Clif [facility] [place] [address] PCP - General Nurse Practitioner 05/24/25
--- OUTSIDE RECORDS SUMMARY | 2025-07-08 13:34 | XMS_ITS | Clinical Summary ---
Author Organization [facility] Address [address] [facility], [place] [address] Phone Care Team Providers Care Loader Technician Name Role Phone Toni Emery MD Unavailable [phone] Piero Holcomb MD Primary Care Provider [phone] Allergies No known active allergies Medications acetaminophen [...] Visit [facility] - Neurology [facility] [address] [place] [address] Toni Emery MD [address] [place] [address] Health Maintenance Due Date Last Done Comments [...] topic Insurance MEDICARE MEDICAID [place] Care Teams Loader Technician Relationship Specialty Start Date End Date Piero Holcomb MD [address] [place] [id number] PCP - General Family Medicine 07/09/16 Toni Emery MD [address] [place] [id number] Consulting Physician Neurology 10/20/15
--- NOTE | 2025-07-08 14:55 | ED.GENADULT ---
HPI - General Adult General Chief complaint: Fall Stated complaint: fall Time Seen by Provider: 07/08/25 12:51 History of Present Illness HPI narrative: Patient is a 87-year-old female who presents emergency department with chief complaint of ground level fall. Patient's fall was on the 04 of July and the caregivers noticed that she was having a difficult time getting into the bus the patient is not able to provide much history due to schizophrenia and dementia. A facility reports she has some bruising along her back and also bruising on bilateral upper extremities and was complaining of pain in her legs. Related Data Home Medications ?Medication ?Instructions ?Recorded ?Confirmed ?Last Taken ?Type Adult Low Dose Aspirin 81 mg PO DAILY 02/14/20 05/07/25 Unknown History Oyster Shell Calcium 500 500 mg PO DAILY 02/14/20 05/07/25 Unknown History aluminum-mag hydroxide-simethicone 30 ml PO Q6H PRN Indigestion 02/14/20 05/07/25 Unknown History 200 mg-200 mg-20 mg/5 mL oral susp (Almacone) bisacodyl 5 mg tablet,delayed 5 mg PO PRN PRN Constipation 02/14/20 05/07/25 Unknown History release bismuth subsalicylate 262 mg/15 mL 524 mg PO QID PRN Loose Stool 02/14/20 05/07/25 Unknown History oral suspension (Bismatrol) buspirone 10 mg tablet 10 mg PO BID 02/14/20 05/07/25 Unknown History calcium carbonate (Oyster Shell 500 mg PO DAILY 02/14/20 05/07/25 Unknown History Calcium 500) cetirizine 10 mg PO DAILY 02/14/20 05/07/25 Unknown History cyanocobalamin (vitamin B-12) 100 100 mcg PO DAILY 02/14/20 05/07/25 Unknown History mcg tablet (Vitamin B-12) diphenhydramine HCl 25 mg capsule 25 mg PO Q6H PRN Allergy Symptoms 02/14/20 05/07/25 Unknown History (Benadryl) divalproex 125 mg capsule,delayed 125 mg PO BID 02/14/20 05/07/25 Unknown History release sprinkle duloxetine 60 mg capsule,delayed 60 mg PO DAILY 02/14/20 05/07/25 Unknown History release guaifenesin 100 mg/5 mL oral 200 mg PO Q4H PRN Cough 02/14/20 05/07/25 Unknown History liquid (Robafen) irbesartan 150 mg tablet 150 mg PO DAILY 02/14/20 05/07/25 Unknown History levothyroxine 112 mcg tablet 112 mcg PO DIRECTED 02/14/20 05/07/25 Unknown History loperamide 2 mg capsule 2 mg PO Q2-4H PRN Diarrhea 02/14/20 05/07/25 Unknown History memantine 5 mg tablet 5 mg PO BID 02/14/20 05/07/25 Unknown History potassium chloride 20 mEq 20 meq PO BID 02/14/20 05/07/25 Unknown History tablet,extended release(part/cryst) rivastigmine 9.5 mg/24 hour 9.5 mg transdermal DAILY 02/14/20 05/07/25 Unknown History transdermal patch (Exelon Patch) trazodone 100 mg tablet 100 mg PO HS 02/14/20 05/07/25 Unknown History wheat dextrin 3 gram/3.5 gram oral 3 g PO DAILY 02/14/20 05/07/25 Unknown History powder packet (Benefiber Clear Sugar Free(dextrin)) nystatin 100,000 unit/gram topical topical 06/14/25 Unknown History powder (Nystop) Allergies Allergy/AdvReac Type Severity Reaction Status Date / Time No Known Allergies Allergy Verified 07/08/25 12:28 Review of Systems Review of Systems: A 10 system review of systems was completed on the patient and is negative except for what is stated in the HPI. Nursing and ancillary documentation was reviewed. [facility] Past Medical History Medical History Dementia Seizure disorder Breast cancer Schizophrenia Hypothyroid Post-menopausal HTN (hypertension) Surgical History Surgical History History of mastectomy Right Social History Social History Social History: Resides in a fci. She is a grye of the [facility] and full code status. Smoking status: Unknown if ever smoked Alcohol intake: unknown Substance use: unknown Occupation/Education: retired Additional occupation/education comments: Disabled due to psychological condition Gender identity (if verbalized by the patient): Female Exam Narrative: GENERAL: Well-appearing, well-nourished, and in no acute distress. HEAD: Normocephalic, atraumatic. EYES: PERRLA and EOMI. ENT: Nares clear, no rhinorrhea or epistaxis. Mucous membranes moist. NECK: Supple. CHEST: Clear to auscultation. No respiratory distress. Back: Bruising present to the left posterior chest HEART: Regular rate and rhythm. No murmur heard. Normal peripheral pulses. ABDOMEN: Soft, nontender, nondistended, normal active bowel sounds. EXTREMITIES: Normal range of motion. No edema. There is bruising present to the bilateral forearms there is mild tenderness to palpation the left knee SKIN: Warm, dry, no rash. NEURO: No focal deficits. Alert and oriented to baseline. PSYCH: Normal mood and affect. Course Vital Signs Vital signs: Vital Signs Temperature 37.1 C 07/08/25 11:09 Pulse Rate 68 07/08/25 11:09 Respiratory Rate 16 07/08/25 11:09 Blood Pressure 98/58 L 07/08/25 11:09 Pulse Oximetry 100 07/08/25 11:09 Oxygen Delivery Room Air 07/08/25 11:09 Temperature 36.4 C L 07/08/25 12:25 Pulse Rate 69 07/08/25 12:25 Respiratory Rate 14 07/08/25 12:25 Blood Pressure 105/60 07/08/25 12:25 Pulse Oximetry 96 07/08/25 12:25 Oxygen Delivery Room Air 07/08/25 11:09 Medical Decision Making [facility] Narrative Medical decision making narrative: Differential diagnosis includes fracture, contusion Plain film x-ray showed no evidence of fracture The patient was able to ambulate at her baseline mobility Vital Signs Vital Signs: Vital Signs Temperature 37.1 C 07/08/25 11:09 Pulse Rate 68 07/08/25 11:09 Respiratory Rate 16 07/08/25 11:09 Blood Pressure 98/58 L 07/08/25 11:09 Pulse Oximetry 100 07/08/25 11:09 Oxygen Delivery Room Air 07/08/25 11:09 Temperature 36.4 C L 07/08/25 12:25 Pulse Rate 69 07/08/25 12:25 Respiratory Rate 14 07/08/25 12:25 Blood Pressure 105/60 07/08/25 12:25 Pulse Oximetry 96 07/08/25 12:25 Oxygen Delivery Room Air 07/08/25 11:09 Discharge Plan Discharge Clinical Impression: Fall from ground level, Traumatic ecchymosis of left wrist, Traumatic ecchymosis of right forearm, Contusion of left back wall of thorax, Acute pain of left knee Patient Disposition: NH [facility]/Asst Living Condition: Stable Instructions: Antibiotic Form, Concussion (ED), Fall Prevention (ED), Ecchymosis (ED) Additional Instructions: The x-ray showed no evidence of fracture. Please follow-up with your primary care provider as needed Patient Language: Upper Sorbian Prescriptions: No Action nystatin [Nystop] 100,000 unit/gram powder TOPICAL cephalexin 500 mg capsule 500 mg PO QID 7 Days Qty: 28 0RF Adult Low Dose Aspirin 81 mg PO DAILY potassium chloride 20 mEq tablet,ER particles/crystals 20 meq PO BID trazodone 100 mg tablet 100 mg PO HS Patient Comments: 50 mg buspirone 10 mg tablet 10 mg PO BID irbesartan 150 mg tablet 150 mg PO DAILY divalproex 125 mg capsule, delayed rel sprinkle 125 mg PO BID levothyroxine 112 mcg tablet 112 mcg PO DIRECTED memantine 5 mg tablet 5 mg PO BID rivastigmine [Exelon Patch] 9.5 mg/24 hr patch 24 hour 9.5 mg transdermal DAILY cetirizine 10 mg PO DAILY duloxetine 60 mg Capsule,Delayed Release(Dr/Ec) 60 mg PO DAILY cyanocobalamin (vitamin B-12) [Vitamin B-12] 100 mcg Tablet 100 mcg PO DAILY calcium carbonate [Oyster Shell Calcium 500] 500 mg calcium (1,250 mg) Tablet 500 mg PO DAILY bismuth subsalicylate [Bismatrol] 262 mg/15 mL Suspension 524 mg PO QID PRN (Reason: Loose Stool) bisacodyl 5 mg Tablet,Delayed Release (Dr/Ec) 5 mg PO PRN PRN (Reason: Constipation) alum-mag hydroxide-simeth [Almacone] 200-200-20 mg/5 mL Suspension 30 ml PO Q6H PRN (Reason: Indigestion) Benefiber Clear SF (dextrin) 3 gram/3.5 gram Powder In Packet 3 g PO DAILY Oyster Shell Calcium 500 500 mg PO DAILY loperamide 2 mg Capsule 2 mg PO Q2-4H PRN (Reason: Diarrhea) guaifenesin [Robafen] 100 mg/5 mL Liquid 200 mg PO Q4H PRN (Reason: Cough) diphenhydramine HCl [Benadryl] 25 mg Capsule 25 mg PO Q6H PRN (Reason: Allergy Symptoms) Follow-up/Referrals: Yahir,Yodit Arteaga, REAL ESTATE TRANSACTION COORDINATOR [Primary Care Provider] - Time of Disposition: 15:01
== END 2025-07-08 15:12 ==
PROVIDERS: Emergency Provider Emergency Medicine
DX: S60.212A Contusion of left wrist, initial encounter (principal); S50.11XA Contusion of right forearm, initial encounter; S20.222A Contusion of left back wall of thorax, initial encounter; M25.562 Pain in left knee; W18.30XA Fall on same level, unspecified, initial encounter; F20.9 Schizophrenia, unspecified; F03.90 Unspecified dementia, unspecified severity, without behavioral disturbance, psychotic disturbance, mood disturbance, and anxiety; G40.909 Epilepsy, unspecified, not intractable, without status epilepticus; I10 Essential (primary) hypertension; Z85.3 Personal history of malignant neoplasm of breast; E03.9 Hypothyroidism, unspecified
CPT/HCPCS: 71046; 71100; 73090; 73110; 73521; 73562; 99284